=== PATIENT | male | born 1950 | race African-American/Black ===

== ENCOUNTER 2018-11-11 12:37 | Inpatient (IN) | payer OTHER ==
[~2018-11-11] VITALS: Ht 185.4 cm; Wt 106.8 kg
[~2018-11-11 12:37] MED LIST: ALLO100T PO; AMLO10TA8 PO; ASPI-630 PO; ATOR40TA59 PO; CHOL10003 PO; CLON0.3T PO; CLOP75TA PO; FURO20TA3 PO; HYDR-2869 PO; INSU100I17 SQ; INSU100V13 SQ; LISI-130 PO; LORA10TA3 PO; MELO15TA23 PO; METO25TA4 PO; ROPI0.5T2 PO; TAMS0.4C97 PO
[2018-11-11] MEDS ORDERED: ASPIRIN CHEWABLE 81 MG TABLET. PO ONE (13:00)
[2018-11-11] MEDS ORDERED: NITROGLYCERIN SUBLINGUAL 0.4 MG BOTTLE OF 25. SL PRN (13:00)
--- NOTE | 2018-11-11 13:07 | PHYS DOC ---
Past Medical History Past Medical History: Diabetes-Type II, High Cholesterol, Hypertension, [place] Past Surgical History: Coronary Bypass Surgery Alcohol Use: None Drug Use: None Adult General Chief Complaint Chief Complaint: CHEST PAIN HPI HPI Patient is a 68 year old male who presents with complaining of chest pain. Patient complaining of sudden onset of left-sided burning pain since 7 AM while changing his clothes as a constant pain with radiation to left upper back and associated with shortness of breath and dizziness without vomiting and palpitation. Patient rated his pain 8/10 and states the pain getting worse with movement. Patient states he had same pain with his previous stent placement. Review of Systems Review of Systems Constitutional: Denies fever or chills [] Eyes: Denies change in visual acuity, redness, or eye pain [] HENT: Denies nasal congestion or sore throat [] Respiratory: Denies cough or shortness of breath [] Cardiovascular: No additional information not addressed in HPI [] GI: Denies abdominal pain, nausea, vomiting, bloody stools or diarrhea [] : Denies dysuria or hematuria [] Musculoskeletal: Denies back pain or joint pain [] Integument: Denies rash or skin lesions [] Neurologic: Denies headache, focal weakness or sensory changes [] Endocrine: Denies polyuria or polydipsia [] All other systems were reviewed and found to be within normal limits, except as documented in this note. Current Medications Current Medications Allergies Allergies Allergies Coded Allergies Type Severity Reaction Last Updated Verified No Known Drug Allergies 09/20/18 No Physical Exam Physical Exam Constitutional: Well developed, well nourished, no acute distress, non-toxic appearance. [] HENT: Normocephalic, atraumatic, bilateral external ears normal, oropharynx moist, no oral exudates, nose normal. [] Eyes: PERRLA, EOMI, conjunctiva normal, no discharge. [] Neck: Normal range of motion, no tenderness, supple, no stridor. [] Cardiovascular:Heart rate regular rhythm, no murmur [] Lungs & Thorax: Bilateral breath sounds clear to auscultation [] Abdomen: Bowel sounds normal, soft, no tenderness, no masses, no pulsatile masses. [] Skin: Warm, dry, no erythema, no rash. [] Back: No tenderness, no CVA tenderness. [] Extremities: No tenderness, no cyanosis, no clubbing, ROM intact, no edema. [] Neurologic: Alert and oriented X 3, normal motor function, normal sensory function, no focal deficits noted. [] Psychologic: Affect normal, judgement normal, mood normal. [] Current Patient Data Vital Signs Vital Signs Date Time Temp Pulse Resp B/P (MAP) Pulse Ox O2 Delivery O2 Flow Rate FiO2 11/11/18 12:51 97.8 60 17 159/87 (111) 97 Room Air 97.8 EKG EKG EKG interpreted by me. EKG at 1245 showed [id number],PVCs,no acute ST and T wave abnormalities. Radiology/Procedures Radiology/Procedures [][facility] [address] [place] [address] IMAGING REPORT Signed PATIENT: FALLON MORA ACCOUNT: [id number] : 1950 LOCATION: [address] [place] [address] AGE: 68 SEX: M EXAM STATUS: ADM IN ORD. PHYSICIAN: KALYAN HUANG MD REASON: chest pain PROCEDURE: PORTABLE CHEST 1V PORTABLE CHEST 1V Clinical indications: Chest pain. COMPARISON: September 20, 2018. Findings: No acute lung infiltrate or pleural effusion or pulmonary edema or lung mass or pneumothorax is seen. The heart size, pulmonary vasculature, mediastinum and both enedelia are stable. Impression: No acute radiographic abnormality is seen. Electronically signed by: Matias Guerin MD (11/11/2018 1:41 PM) [facility] DICTATED and SIGNED BY: MATIAS GUERIN MD DATE: 11/11/18 1341 Course & Med Decision Making Course & Med Decision Making Pertinent Labs and Imaging studies reviewed. (See chart for details) Evaluation of patient in ER showed 68-year-old male patient with complaining of chest pain with heart score of 6. Patient had unremarkable cardiac enzymes. Patient requiring admission for further evaluation and treatment. Discussed with Dr. Mancuso who is in agreement with admission. Discussed findings and plan with patient and family, who acknowledge understanding and agreement. Dragon Disclaimer Dragon Disclaimer This electronic medical record was generated, in whole or in part, using a voice recognition dictation system. Departure Departure Impression: Primary Impression: Acute chest pain Additional Impressions: Anemia Hypomagnesemia Disposition: 09 ADMITTED INPATIENT (at 1256) Admitting Physician: AMBROSIO (Dr. Mancuso accepted admission at 1255) Condition: IMPROVED Referrals: UNKNOWN PCP NAME (PCP) The HEART Score for CP Pts HEART Score for Chest Pain: HEART Score for Chest Pain Response (Comments) Value History Moderately Suspicious 1 ECG Nonspecific Repolarizatio 1 Age > 65 2 Risk Factors >3 Risk Factors or Hx CAD 2 Troponin < Normal Limit 0 Total 6 Risk Factors: Risk Factors: DM, Current or recent (<one month) smoker, HTN, HLP, family history of CAD, obesity. Risk Scores: Score 0 - 3: 2.5% MACE over next 6 weeks - Discharge Home Score 4 - 6: 20.3% MACE over next 6 weeks - Admit for Clinical Observation Score 7 - 10: 72.7% MACE over next 6 weeks - Early Invasive Strategies Problem Qualifiers Additional Impressions: Anemia Anemia type: unspecified type Qualified Codes: D64.9 - Anemia, unspecified KALYAN HUANG MD Nov 11, 2018 13:07
[2018-11-11 13:16] LABS: BASO % 0 % (0-3); EOS # 0.1 x10^3/uL (0.0-0.7); EOS % 1 % (0-3); HEMATOCRIT 37.1 % (39.0-53.0); HEMOGLOBIN 12.1 g/dL (13.0-17.5); LYMPH # 1.9 x10^3/uL (1.0-4.8); LYMPH % 23 % (24-48); MEAN CORPUSCULAR HEMOGLOBIN 26 pg (25-35); MEAN CORPUSCULAR HGB CONC 33 g/dL (31-37); MEAN CORPUSCULAR VOLUME 78 fL (79-100); MONO # 0.6 x10^3/uL (0.0-1.1); MONO % 8 % (0-9); NEUT # 5.9 x10^3/uL (1.8-7.7); NEUT % 69 % (31-73); PLATELET COUNT 186 x10^3/uL (140-400); RED BLOOD COUNT 4.73 x10^6/uL (4.30-5.70); RED CELL DISTRIBUTION WIDTH 16.4 % (11.5-14.5); WHITE BLOOD COUNT 8.6 x10^3/uL (4.0-11.0)
[2018-11-11 13:23] LABS: PROTHROMBIN TIME PATIENT 13.8 SEC (11.7-14.0)
[2018-11-11 13:31] LABS: CALCIUM 9.4 mg/dL (8.5-10.1); CREATININE 1.2 mg/dL (0.7-1.3); GFR 72.4
[2018-11-11 13:37] LABS: ALBUMIN 3.5 g/dL (3.4-5.0); ALBUMIN/GLOBULIN RATIO 0.9 (1.0-1.7); MAGNESIUM 1.7 mg/dL (1.8-2.4); TOTAL BILIRUBIN 0.7 mg/dL (0.2-1.0); TOTAL PROTEIN 7.3 g/dL (6.4-8.2)
--- NOTE | 2018-11-11 13:43 | RAD ---
PORTABLE CHEST 1V Clinical indications: Chest pain. COMPARISON: September 20, 2018. Findings: No acute lung infiltrate or pleural effusion or pulmonary edema or lung mass or pneumothorax is seen. The heart size, pulmonary vasculature, mediastinum and both enedelia are stable. Impression: No acute radiographic abnormality is seen. Electronically signed by: Brent Guerin MD (11/11/2018 1:41 PM) [facility]
--- NOTE | 2018-11-11 13:44 | EKG ---
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
[2018-11-11 14:30] VITALS: BP 115/58
[2018-11-11] MEDS ORDERED: ONDANSETRON PF 4 MG/2 ML VIAL. IV ONE (14:30)
[2018-11-11] MEDS ORDERED: MORPHINE SULFATE 4 MG/ML VIAL. IV ONE (14:30)
[2018-11-11] MEDS ORDERED: INSU100V13 SQ ×2 (15:49→15:51)
[2018-11-11] MEDS ORDERED: INSU100C4 SQ (15:49)
--- NOTE | 2018-11-11 15:49 | PDOC2 ---
CONSULT Date of Consult Date of Consult DATE: 11/11/18 TIME: 15:44 Reason for Consult Reason for Consult: chest pain Referring Physician Referring Physician: Dr. Mancuso Identification/Chief Complaint Chief Complaint chest pain Source Source: Chart review, Patient History of Present Illness Reason for Visit: The patient is a 68-year-old male who presented through the emergency room for episodes of chest pain. Patient states this pain started last night and continued throughout the night. In the emergency room the patient's EKG showed no evidence of ischemia. His initial troponin was normal. He is now resting more comfortably in bed. He reports a history of coronary disease, hypertension, hyperlipidemia and diabetes. He was admitted in August for abdominal discomfort and had gastritis and acute renal insufficiency. Creatinine was 1.9. Also he had a positive UDS for cocaine. Past Medical History Cardiovascular: CAD, HTN, Hyperlipidemia GI: Constipation Musculoskeletal: low back pain Renal/: No pertinent hx, Chronic renal failure Endocrine: Diabetes Past Surgical History Past Surgical History: No pertinent history Family History Family History: Heart Disease Social History <1 pack per day Drugs: Cocaine, Other Lives: with Family Current Problem List Problem List Problems Medical Problems: (1) Acute chest pain Status: Acute Current Medications Current Medications Current Medications Aspirin (Children'S Aspirin) 243 mg 1X ONCE PO Last administered on 11/11/18at 13:49; Start 11/11/18 at 13:00; Stop 11/11/18 at 13:01; Status DC Nitroglycerin (Nitrostat) 0.4 mg PRN Q5MIN PRN SL CP RATING > 1/10 Last administered on 11/11/18at 13:49; Start 11/11/18 at 13:00; Stop 11/12/18 at 12:59 Magnesium Oxide (Magnesium Oxide) 400 mg DAILY PO ; Start 11/12/18 at 09:00 Ondansetron HCl (Zofran) 4 mg 1X ONCE IV ; Start 11/11/18 at 14:30; Stop 11/11/18 at 14:31; Status DC Morphine Sulfate (Morphine Sulfate) 4 mg 1X ONCE IV ; Start 11/11/18 at 14:30; Stop 11/11/18 at 14:31; Status DC Active Scripts Active Reported Ropinirole Hcl 0.5 Mg Tablet 0.5 Mg PO HS Levemir (Insulin Detemir) 100 Unit/1 Ml Vial 55 Unit SQ HS Novolog Flexpen (Insulin Aspart) 100 Unit/1 Ml Insuln.pen 35 Unit SQ TIDWMEALS Flomax (Tamsulosin Hcl) 0.4 Mg Cap.er.24h 0.4 Mg PO HS Metoprolol Tartrate 25 Mg Tablet 25 Mg PO HS Meloxicam 15 Mg Tablet 1 Tab PO PRN DAILY PRN Loratadine 10 Mg Tablet 1 Tab PO PRN DAILY PRN Lisinopril 40 Mg Tablet 1 Tab PO DAILY Hydralazine Hcl 50 Mg Tablet 50 Mg PO QID Furosemide 20 Mg Tablet 20 Mg PO DAILY Clopidogrel (Clopidogrel Bisulfate) 75 Mg Tablet 1 Tab PO DAILY Vitamin D3 (Cholecalciferol (Vitamin D3)) 1,000 Unit Tablet 1 Tab PO DAILY Clonidine Hcl 0.3 Mg Tablet 2 Tab PO BID Atorvastatin Calcium 40 Mg Tablet 1 Tab PO QHS Aspirin 81 Mg Tab.chew 1 Tab PO DAILY Allopurinol 100 Mg Tablet 1 Tab PO DAILY Amlodipine Besylate 10 Mg Tablet 10 Mg PO DAILY Allergies Allergies: Coded Allergies: No Known Drug Allergies (Unverified , 09/20/18) ROS General: YES: Fatigue Cardiovascular: yes Chest Pain Physical Exam General: mild distress HEENT: Atraumatic Lungs: Other (minimally decreased breath sounds) Heart: Regular rate Abdomen: Normal bowel sounds Vitals VITALS Vital Signs Date Time Temp Pulse Resp B/P (MAP) Pulse Ox O2 Delivery O2 Flow Rate FiO2 11/11/18 14:14 54 125/56 (79) 97 Room Air 11/11/18 12:51 97.8 17 97.8 Labs Labs Laboratory Tests Test 11/11/18 13:05 White Blood Count 8.6 x10^3/uL (4.0-11.0) Red Blood Count 4.73 x10^6/uL (4.30-5.70) Hemoglobin 12.1 g/dL (13.0-17.5) Hematocrit 37.1 % (39.0-53.0) Mean Corpuscular Volume 78 fL (79-100) Mean Corpuscular Hemoglobin 26 pg (25-35) Mean Corpuscular Hemoglobin Concent 33 g/dL (31-37) Red Cell Distribution Width 16.4 % (11.5-14.5) Platelet Count 186 x10^3/uL (140-400) Neutrophils (%) (Auto) 69 % (31-73) Lymphocytes (%) (Auto) 23 % (24-48) Monocytes (%) (Auto) 8 % (0-9) Eosinophils (%) (Auto) 1 % (0-3) Basophils (%) (Auto) 0 % (0-3) Neutrophils # (Auto) 5.9 x10^3/uL (1.8-7.7) Lymphocytes # (Auto) 1.9 x10^3/uL (1.0-4.8) Monocytes # (Auto) 0.6 x10^3/uL (0.0-1.1) Eosinophils # (Auto) 0.1 x10^3/uL (0.0-0.7) Basophils # (Auto) 0.0 x10^3/uL (0.0-0.2) Prothrombin Time 13.8 SEC (11.7-14.0) Prothromb Time International Ratio 1.1 (0.8-1.1) Sodium Level 142 mmol/L (136-145) Potassium Level 4.0 mmol/L (3.5-5.1) Chloride Level 105 mmol/L (98-107) Carbon Dioxide Level 28 mmol/L (21-32) Anion Gap 9 (6-14) Blood Urea Nitrogen 18 mg/dL (8-26) Creatinine 1.2 mg/dL (0.7-1.3) Estimated GFR (Cockcroft-Gault) 72.4 BUN/Creatinine Ratio 15 (6-20) Glucose Level 131 mg/dL (70-99) Lactic Acid Level 0.8 mmol/L (0.4-2.0) Calcium Level 9.4 mg/dL (8.5-10.1) Magnesium Level 1.7 mg/dL (1.8-2.4) Total Bilirubin 0.7 mg/dL (0.2-1.0) Aspartate Amino Transf (AST/SGOT) 13 U/L (15-37) Alanine Aminotransferase (ALT/SGPT) 15 U/L (16-63) Alkaline Phosphatase 121 U/L (46-116) Creatine Kinase 87 U/L (39-308) Troponin I Quantitative < 0.017 ng/mL (0.000-0.055) NE-Rqn-W-Type Natriuretic Peptide 457 pg/mL (0-124) Total Protein 7.3 g/dL (6.4-8.2) Albumin 3.5 g/dL (3.4-5.0) Albumin/Globulin Ratio 0.9 (1.0-1.7) Lipase 105 U/L (73-393) Laboratory Tests Test 11/11/18 13:05 White Blood Count 8.6 x10^3/uL (4.0-11.0) Red Blood Count 4.73 x10^6/uL (4.30-5.70) Hemoglobin 12.1 g/dL (13.0-17.5) Hematocrit 37.1 % (39.0-53.0) Mean Corpuscular Volume 78 fL (79-100) Mean Corpuscular Hemoglobin 26 pg (25-35) Mean Corpuscular Hemoglobin Concent 33 g/dL (31-37) Red Cell Distribution Width 16.4 % (11.5-14.5) Platelet Count 186 x10^3/uL (140-400) Neutrophils (%) (Auto) 69 % (31-73) Lymphocytes (%) (Auto) 23 % (24-48) Monocytes (%) (Auto) 8 % (0-9) Eosinophils (%) (Auto) 1 % (0-3) Basophils (%) (Auto) 0 % (0-3) Neutrophils # (Auto) 5.9 x10^3/uL (1.8-7.7) Lymphocytes # (Auto) 1.9 x10^3/uL (1.0-4.8) Monocytes # (Auto) 0.6 x10^3/uL (0.0-1.1) Eosinophils # (Auto) 0.1 x10^3/uL (0.0-0.7) Basophils # (Auto) 0.0 x10^3/uL (0.0-0.2) Prothrombin Time 13.8 SEC (11.7-14.0) Prothromb Time International Ratio 1.1 (0.8-1.1) Sodium Level 142 mmol/L (136-145) Potassium Level 4.0 mmol/L (3.5-5.1) Chloride Level 105 mmol/L (98-107) Carbon Dioxide Level 28 mmol/L (21-32) Anion Gap 9 (6-14) Blood Urea Nitrogen 18 mg/dL (8-26) Creatinine 1.2 mg/dL (0.7-1.3) Estimated GFR (Cockcroft-Gault) 72.4 BUN/Creatinine Ratio 15 (6-20) Glucose Level 131 mg/dL (70-99) Lactic Acid Level 0.8 mmol/L (0.4-2.0) Calcium Level 9.4 mg/dL (8.5-10.1) Magnesium Level 1.7 mg/dL (1.8-2.4) Total Bilirubin 0.7 mg/dL (0.2-1.0) Aspartate Amino Transf (AST/SGOT) 13 U/L (15-37) Alanine Aminotransferase (ALT/SGPT) 15 U/L (16-63) Alkaline Phosphatase 121 U/L (46-116) Creatine Kinase 87 U/L (39-308) Troponin I Quantitative < 0.017 ng/mL (0.000-0.055) AS-Ujk-Z-Type Natriuretic Peptide 457 pg/mL (0-124) Total Protein 7.3 g/dL (6.4-8.2) Albumin 3.5 g/dL (3.4-5.0) Albumin/Globulin Ratio 0.9 (1.0-1.7) Lipase 105 U/L (73-393) Images Images Chest x-ray shows no acute process. Assessment/Plan Assessment/Plan 1. Chest pain. Pain has significantly improved. EKG shows no acute ischemic changes. Initial troponin is negative. Patient reports a history of coronary disease. At this time would continue present medications and monitoring. Would rule out for myocardial infarction. Based on clinical course the patient may be a candidate for outpatient stress testing. 2. Hypertension. Blood pressure under reasonable control. Will continue to monitor. 3. Hyperlipidemia. We'll check morning lab. 4. Diabetes mellitus. As per the primary service. 5. History of positive UDS for cocaine in August of this year. 6. Chronic kidney disease. Will monitor creatinine. Thank you for allowing us to participate in the care of your patient. RENALDO MADRID MD Nov 11, 2018 15:49
[2018-11-11] MEDS ORDERED: MAGNESIUM SULFATE 2GM 50 ML IV ONE (17:00)
[2018-11-11] MEDS: INSULIN LISPRO 300 UNITS/3 ML VIAL. SQ SCH (17:38)
[2018-11-11 19:00] VITALS: BP 141/66
--- NOTE | 2018-11-11 19:57 | HP ---
ADMIT DATE: 11/11/2018 CHIEF COMPLAINT: Chest pain. HISTORY OF PRESENT ILLNESS: The patient is a pleasant 68-year-old male who has 7 coronary stents and he has had bypass surgery. Once again, he presents to the ER with chest pain. His troponin is slightly high at 0.02. He has associated weakness. It has been occurring for a couple of days. I discussed the case with the ER physician. We are going to admit the patient and consult Cardiology. PAST MEDICAL HISTORY: Coronary artery bypass surgery, 7 cardiac stents, diabetes, hypertension, hyperlipidemia, myocardial infarction. ALLERGIES: None. FAMILY HISTORY: Coronary artery disease. SOCIAL HISTORY: Does not drink, smoke or take drugs. 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 MEDICATIONS: Reviewed, please refer to the MRAD. REVIEW OF SYSTEMS: GENERAL: No history of weight change, weakness or fevers. SKIN: No bruising, hair changes or rashes. EYES: No blurred, double or loss of vision. NOSE AND THROAT: No history of nosebleeds, hoarseness or sore throat. HEART: He complains of chest pain. LUNGS: Denies cough, hemoptysis, wheezing or shortness of breath. GASTROINTESTINAL: Denies changes in appetite, nausea, vomiting, diarrhea or constipation. GENITOURINARY: No history of frequency, urgency, hesitancy or nocturia. NEUROLOGIC: Denies history of numbness, tingling, tremor or weakness. PSYCHIATRIC: No history of panic, anxiety or depression. ENDOCRINE: No history of heat or cold intolerance, polyuria or polydipsia. EXTREMITIES: Denies muscle weakness, joint pain, pain on walking or stiffness. PHYSICAL EXAMINATION: VITALS: Within normal limits and are stable. GENERAL: No apparent distress. Alert and oriented. HEENT: Head is normocephalic, atraumatic, pupils were equally round and reactive to light and accommodation. NECK: Supple, no JVD, no thyromegaly was noted. LUNGS: Clear to auscultation in all lung noble without rhonchi or wheezing. HEART: RRR, S1, S2 present. Peripheral pulses intact, no obvious murmurs were noted. ABDOMEN: Soft, nontender. Positive bowel sounds no organomegaly, normal bowel sounds. EXTREMITIES: Without any cyanosis, clubbing, or edema. Pedal pulses intact, Homans sign is negative. NEUROLOGIC: Normal speech, normal tone. A & O x3, moves all extremities, no obvious focal deficits. PSYCHIATRIC: Normal affect, normal mood. Stable. SKIN: No ulcerations or rashes, good skin turgor, no jaundice. VASCULAR: Good capillary refill, neurovascular bundle appears to be intact. LABORATORY DATA: Troponin is 0.0227. ASSESSMENT AND PLAN: Chest pain with known coronary artery disease. The patient has been admitted. We will check serial enzymes, serial EKGs, cardiac monitoring, echocardiogram, consult Cardiology. DVT prophylaxis. Home meds, p.r.n. nitro, daily aspirin. CRIS HIGGINBOTHAM DO DR: REBEKAH/ami JOB#: [id number] / [id number]
[2018-11-11] MEDS: GABAPENTIN 300 MG CAPSULE. PO SCH (20:50)
[2018-11-11] MEDS: cloNIDine HCL 0.3 MG TABLET PO SCH (20:51)
[2018-11-11] MEDS ORDERED: METOPROLOL TART IMMED RELEASE 25 MG TABLET. PO SCH (21:00)
[2018-11-11] MEDS ORDERED: INSULIN GLARGINE SYRINGE. SQ SCH (21:00)
[2018-11-11] MEDS ORDERED: rOPINIRole 0.25 MG TABLET. PO SCH (21:00)
[2018-11-11] MEDS ORDERED: TAMSULOSIN 0.4 MG CAP.ER.24H. PO SCH (21:00)
[2018-11-11] MEDS ORDERED: ATORVASTATIN CALCIUM 40 MG TABLET. PO SCH (21:00)
[2018-11-11] MEDS ORDERED: ZOLPIDEM 5 MG TABLET. PO PRN (22:00)
[2018-11-11 23:00] VITALS: BP 130/68
[2018-11-12] MEDS ORDERED: GABAPENTIN 300 MG CAPSULE. PO SCH
[2018-11-12 03:00] VITALS: BP 131/71
[2018-11-12 04:35] LABS: ALBUMIN 3.1 g/dL (3.4-5.0); CALCIUM 9.1 mg/dL (8.5-10.1); CREATININE 1.3 mg/dL (0.7-1.3); DIRECT BILIRUBIN 0.1 mg/dL (0.0-0.2); MAGNESIUM 2.1 mg/dL (1.8-2.4); POTASSIUM 3.6 mmol/L (3.5-5.1); TOTAL BILIRUBIN 0.4 mg/dL (0.2-1.0); TOTAL PROTEIN 7.1 g/dL (6.4-8.2)
[2018-11-12 04:36] LABS: CHOLESTEROL/HDL RATIO 2.8
[2018-11-12 07:00] VITALS: BP 150/75
[2018-11-12] MEDS: GABAPENTIN 300 MG CAPSULE. PO SCH ×2 (07:30→13:07)
[2018-11-12] MEDS: INSULIN LISPRO 300 UNITS/3 ML VIAL. SQ SCH ×2 (08:00→13:13)
[2018-11-12] MEDS ORDERED: amLODIPine BESYLATE 10 MG TABLET PO SCH (09:00)
[2018-11-12] MEDS ORDERED: LISINOPRIL 20 MG TABLET PO SCH (09:00)
[2018-11-12] MEDS ORDERED: FUROSEMIDE 20 MG TABLET PO SCH (09:00)
[2018-11-12] MEDS ORDERED: CLOPIDOGREL BISULFATE 75 MG TABLET PO SCH (09:00)
[2018-11-12] MEDS ORDERED: ASPIRIN CHEWABLE 81 MG TABLET. PO SCH (09:00)
[2018-11-12] MEDS ORDERED: ALLOPURINOL 100 MG TABLET. PO SCH (09:00)
[2018-11-12] MEDS ORDERED: MAGNESIUM OXIDE 400 MG TABLET PO SCH (09:00)
[2018-11-12] MEDS ORDERED: CETIRIZINE HCL 10 MG TABLET. PO PRN (09:00)
[2018-11-12] MEDS ORDERED: MELOXICAM 7.5 MG TABLET PO PRN (09:00)
[2018-11-12] MEDS ORDERED: CHOLECALCIFEROL (VITAMIN D3) 1,000 UNIT TABLET PO SCH (09:00)
[2018-11-12] MEDS: cloNIDine HCL 0.3 MG TABLET PO SCH (09:03)
[2018-11-12 11:00] VITALS: BP 143/83
--- NOTE | 2018-11-12 11:30 | PDOC ---
[employer] PROGRESS NOTE Chief Complaint Chief Complaint Acute Chest Pain Hx of CABG and 7 cardiac stents Diabetes Hypertension Hyperlipidemia Myocardial infarction History of Present Illness History of Present Illness 11/12/18 Pt seen/examined at bedside and resting NAD Chart Reviewed MIRTA RN Vitals/I&O Vitals/I&O: Vital Signs Date Time Temp Pulse Resp B/P (MAP) Pulse Ox O2 Delivery O2 Flow Rate FiO2 11/12/18 09:04 56 150/75 11/12/18 08:00 Room Air 11/12/18 07:00 98.4 18 97 98.4 I & O 11/11/18 11/11/18 11/12/18 14:59 22:59 06:59 Intake Total 400 ml 0 ml Output Total 620 ml 375 ml Balance -220 ml -375 ml Physical Exam General: Alert, mild distress Heart: Regular rate, Normal S1, Normal S2 Lungs: Clear Abdomen: Normal bowel sounds Extremities: No clubbing, No cyanosis Skin: No rashes, No breakdown, No significant lesion Labs Labs: Laboratory Tests Test 11/11/18 13:05 11/11/18 17:17 11/11/18 18:50 11/11/18 20:38 White Blood Count 8.6 x10^3/uL (4.0-11.0) Red Blood Count 4.73 x10^6/uL (4.30-5.70) Hemoglobin 12.1 g/dL (13.0-17.5) Hematocrit 37.1 % (39.0-53.0) Mean Corpuscular Volume 78 fL (79-100) Mean Corpuscular Hemoglobin 26 pg (25-35) Mean Corpuscular Hemoglobin Concent 33 g/dL (31-37) Red Cell Distribution Width 16.4 % (11.5-14.5) Platelet Count 186 x10^3/uL (140-400) Neutrophils (%) (Auto) 69 % (31-73) Lymphocytes (%) (Auto) 23 % (24-48) Monocytes (%) (Auto) 8 % (0-9) Eosinophils (%) (Auto) 1 % (0-3) Basophils (%) (Auto) 0 % (0-3) Neutrophils # (Auto) 5.9 x10^3/uL (1.8-7.7) Lymphocytes # (Auto) 1.9 x10^3/uL (1.0-4.8) Monocytes # (Auto) 0.6 x10^3/uL (0.0-1.1) Eosinophils # (Auto) 0.1 x10^3/uL (0.0-0.7) Basophils # (Auto) 0.0 x10^3/uL (0.0-0.2) Prothrombin Time 13.8 SEC (11.7-14.0) Prothromb Time International Ratio 1.1 (0.8-1.1) Sodium Level 142 mmol/L (136-145) Potassium Level 4.0 mmol/L (3.5-5.1) Chloride Level 105 mmol/L (98-107) Carbon Dioxide Level 28 mmol/L (21-32) Anion Gap 9 (6-14) Blood Urea Nitrogen 18 mg/dL (8-26) Creatinine 1.2 mg/dL (0.7-1.3) Estimated GFR (Cockcroft-Gault) 72.4 BUN/Creatinine Ratio 15 (6-20) Glucose Level 131 mg/dL (70-99) Lactic Acid Level 0.8 mmol/L (0.4-2.0) Calcium Level 9.4 mg/dL (8.5-10.1) Magnesium Level 1.7 mg/dL (1.8-2.4) Total Bilirubin 0.7 mg/dL (0.2-1.0) Aspartate Amino Transf (AST/SGOT) 13 U/L (15-37) Alanine Aminotransferase (ALT/SGPT) 15 U/L (16-63) Alkaline Phosphatase 121 U/L (46-116) Creatine Kinase 87 U/L (39-308) Troponin I Quantitative < 0.017 ng/mL (0.000-0.055) < 0.017 ng/mL (0.000-0.055) FE-Pbj-H-Type Natriuretic Peptide 457 pg/mL (0-124) Total Protein 7.3 g/dL (6.4-8.2) Albumin 3.5 g/dL (3.4-5.0) Albumin/Globulin Ratio 0.9 (1.0-1.7) Lipase 105 U/L (73-393) Glucose (Fingerstick) 187 mg/dL (70-99) 147 mg/dL (70-99) Test 11/12/18 00:40 11/12/18 04:00 11/12/18 07:22 Troponin I Quantitative < 0.017 ng/mL (0.000-0.055) < 0.017 ng/mL (0.000-0.055) Sodium Level 140 mmol/L (136-145) Potassium Level 3.6 mmol/L (3.5-5.1) Chloride Level 103 mmol/L (98-107) Carbon Dioxide Level 30 mmol/L (21-32) Anion Gap 7 (6-14) Blood Urea Nitrogen 20 mg/dL (8-26) Creatinine 1.3 mg/dL (0.7-1.3) Estimated GFR (Cockcroft-Gault) 66.0 Glucose Level 94 mg/dL (70-99) Calcium Level 9.1 mg/dL (8.5-10.1) Magnesium Level 2.1 mg/dL (1.8-2.4) Total Bilirubin 0.4 mg/dL (0.2-1.0) Direct Bilirubin 0.1 mg/dL (0.0-0.2) Aspartate Amino Transf (AST/SGOT) 12 U/L (15-37) Alanine Aminotransferase (ALT/SGPT) 12 U/L (16-63) Alkaline Phosphatase 113 U/L (46-116) Total Protein 7.1 g/dL (6.4-8.2) Albumin 3.1 g/dL (3.4-5.0) Triglycerides Level 56 mg/dL (0-150) Cholesterol Level 95 mg/dL (0-200) LDL Cholesterol, Calculated 50 mg/dL (0-100) VLDL Cholesterol, Calculated 11 mg/dL (0-40) Non-HDL Cholesterol Calculated 61 mg/dL (0-129) HDL Cholesterol 34 mg/dL (40-60) Cholesterol/HDL Ratio 2.8 Glucose (Fingerstick) 95 mg/dL (70-99) Review of Systems Review of Systems: co chest pain co weakness Assessment and Plan Assessmemt and Plan Problems Medical Problems: (1) Acute chest pain Status: Acute (2) Anemia Status: Acute (3) Hypomagnesemia Status: Acute Assessment: Acute Chest Pain Hx of CABG and 7 cardiac stents Diabetes Hypertension Hyperlipidemia Myocardial infarction Plan: Cardiac monitoring Serial enzymes Serial EKG DVT prophylaxis Full Code PT/OT Home Meds Appreciate cardiology input Probably discharge today Comment Review of Relevant I have reviewed the following items galo (where applicable) has been applied. Medications: Current Medications Medications (Trade) Dose Ordered Sig/Laurie Route PRN Reason Start Time Stop Time Status Last Admin Dose Admin Aspirin (Children'S Aspirin) 243 mg 1X ONCE PO 11/11/18 13:00 11/11/18 13:01 DC 11/11/18 13:49 Nitroglycerin (Nitrostat) 0.4 mg PRN Q5MIN PRN SL CP RATING > 1/10 11/11/18 13:00 11/12/18 12:59 11/11/18 13:49 Magnesium Oxide (Magnesium Oxide) 400 mg DAILY PO 11/12/18 09:00 11/12/18 09:04 Allopurinol (Zyloprim) 100 mg DAILY PO 11/12/18 09:00 11/12/18 09:04 Amlodipine Besylate (Norvasc) 10 mg DAILY PO 11/12/18 09:00 11/12/18 09:04 Aspirin (Children'S Aspirin) 81 mg DAILY PO 11/12/18 09:00 11/12/18 09:04 Atorvastatin Calcium (Lipitor) 40 mg QHS PO 11/11/18 21:00 11/11/18 20:59 Vitamin D (Vitamin D3) 1,000 unit DAILY PO 11/12/18 09:00 11/12/18 09:04 Clonidine HCl (Catapres) 0.6 mg BID PO 11/11/18 21:00 11/12/18 09:04 Clopidogrel Bisulfate (Plavix) 75 mg DAILY PO 11/12/18 09:00 11/12/18 09:04 Furosemide (Lasix) 20 mg DAILY PO 11/12/18 09:00 11/12/18 09:04 Hydralazine HCl (Apresoline) 50 mg QID PO 11/11/18 17:00 11/12/18 09:04 Lisinopril (Prinivil) 40 mg DAILY PO 11/12/18 09:00 11/12/18 09:04 Metoprolol Tartrate (Lopressor) 25 mg HS PO 11/11/18 21:00 11/11/18 20:59 Tamsulosin HCl (Flomax) 0.4 mg HS PO 11/11/18 21:00 11/11/18 20:59 Insulin Human Lispro (HumaLOG) 10 units TIDWMEALS SQ 11/11/18 17:00 11/11/18 17:38 Insulin Glargine (Lantus Syringe) 34 unit QHS SQ 11/11/18 21:00 11/12/18 05:07 DC 11/11/18 20:59 Meloxicam (Mobic) 15 mg PRN DAILY PRN PO INFLAMMATION 11/12/18 09:00 11/12/18 09:04 Ropinirole HCl (Requip) 0.5 mg QHS PO 11/11/18 21:00 11/11/18 20:59 Magnesium Sulfate 50 ml @ 25 mls/hr 1X ONCE IV 11/11/18 17:00 11/11/18 18:59 DC 11/11/18 17:38 Gabapentin (Neurontin) 300 mg QIDACHS PO 11/11/18 21:00 11/12/18 09:04 CRIS HIGGINOBTHAM III DO Nov 12, 2018 11:30
[2018-11-12] MEDS ORDERED: HYDROcodone/APAP 5/325MG 1 TAB TABLET PO PRN (11:45)
--- NOTE | 2018-11-12 11:58 | DS ---
DATE OF DISCHARGE: 11/12/2018 ADMISSION DIAGNOSIS: Chest pain with known coronary artery disease. DISCHARGE DIAGNOSIS: Atypical chest pain. CONSULTS: Cardiology. PROCEDURES: None. HOSPITAL COURSE: The patient is a pleasant middle-aged male, who presented with chest pain. He has known coronary artery disease and previous stents including 7 stents and bypass surgery. We admitted the patient, did serial enzymes, serial EKGs, did cardiac monitoring. Cardiology saw the patient. They feel the patient can go. I saw the patient this morning, he is doing great. We plan to discharge this afternoon. DISPOSITION: Home. ACTIVITY: As tolerated. DIET: Cardiac. MEDICATIONS: Please see the MRAD. TOTAL TIME: 34 minutes. CRIS HIGGINBOTHAM DO DR: REBEKAH/ami JOB#: [id number] / [id number]
--- NOTE | 2018-11-12 12:26 | PDOC ---
PROGRESS NOTES Subjective Subjective Patient continues to complain of very atypical sharp chest pain but stated that the severity is much better Objective Objective Vital Signs Date Time Temp Pulse Resp B/P (MAP) Pulse Ox O2 Delivery O2 Flow Rate FiO2 11/12/18 11:00 98.3 58 18 143/83 (103) 96 Room Air 98.3 Intake and Output 11/12/18 06:59 Intake Total 400 ml Output Total 995 ml Balance -595 ml Intake Oral 400 ml Output Urine Total 995 ml Physical Exam Abdomen: Normal bowel sounds Heart: Regular rate, Normal S1, Normal S2 Extremities: No clubbing, No cyanosis General: Alert, mild distress HEENT: Atraumatic Lungs: Other (minimally decreased breath sounds) MUSCULOSKELETAL: No joint tenderness, No deformity Skin: No rashes, No breakdown, No significant lesion Assessment Assessment 1. Chest pain. Pain has significantly improved. EKG shows no acute ischemic changes. Myocardial infarction has been ruled out. Plan for outpatient 2-D echo to assess LV function and Lexiscan nuclear stress test to rule out ischemia. 2. Hypertension. Controlled. 3. Hyperlipidemia. Statins 4. Diabetes mellitus. As per the primary service. 5. History of positive UDS for cocaine in August of this year. 6. Chronic kidney disease. Per IM Plan Plan of Care Problems Medical Problems: (1) Acute chest pain Status: Acute (2) Anemia Status: Acute (3) Hypomagnesemia Status: Acute Comment Review of Relevant I have reviewed the following items galo (where applicable) has been applied. Labs Laboratory Tests Test 11/11/18 13:05 11/11/18 17:17 11/11/18 18:50 11/11/18 20:38 White Blood Count 8.6 x10^3/uL (4.0-11.0) Red Blood Count 4.73 x10^6/uL (4.30-5.70) Hemoglobin 12.1 g/dL (13.0-17.5) Hematocrit 37.1 % (39.0-53.0) Mean Corpuscular Volume 78 fL (79-100) Mean Corpuscular Hemoglobin 26 pg (25-35) Mean Corpuscular Hemoglobin Concent 33 g/dL (31-37) Red Cell Distribution Width 16.4 % (11.5-14.5) Platelet Count 186 x10^3/uL (140-400) Neutrophils (%) (Auto) 69 % (31-73) Lymphocytes (%) (Auto) 23 % (24-48) Monocytes (%) (Auto) 8 % (0-9) Eosinophils (%) (Auto) 1 % (0-3) Basophils (%) (Auto) 0 % (0-3) Neutrophils # (Auto) 5.9 x10^3/uL (1.8-7.7) Lymphocytes # (Auto) 1.9 x10^3/uL (1.0-4.8) Monocytes # (Auto) 0.6 x10^3/uL (0.0-1.1) Eosinophils # (Auto) 0.1 x10^3/uL (0.0-0.7) Basophils # (Auto) 0.0 x10^3/uL (0.0-0.2) Prothrombin Time 13.8 SEC (11.7-14.0) Prothromb Time International Ratio 1.1 (0.8-1.1) Sodium Level 142 mmol/L (136-145) Potassium Level 4.0 mmol/L (3.5-5.1) Chloride Level 105 mmol/L (98-107) Carbon Dioxide Level 28 mmol/L (21-32) Anion Gap 9 (6-14) Blood Urea Nitrogen 18 mg/dL (8-26) Creatinine 1.2 mg/dL (0.7-1.3) Estimated GFR (Cockcroft-Gault) 72.4 BUN/Creatinine Ratio 15 (6-20) Glucose Level 131 mg/dL (70-99) Lactic Acid Level 0.8 mmol/L (0.4-2.0) Calcium Level 9.4 mg/dL (8.5-10.1) Magnesium Level 1.7 mg/dL (1.8-2.4) Total Bilirubin 0.7 mg/dL (0.2-1.0) Aspartate Amino Transf (AST/SGOT) 13 U/L (15-37) Alanine Aminotransferase (ALT/SGPT) 15 U/L (16-63) Alkaline Phosphatase 121 U/L (46-116) Creatine Kinase 87 U/L (39-308) Troponin I Quantitative < 0.017 ng/mL (0.000-0.055) < 0.017 ng/mL (0.000-0.055) SG-Qsy-C-Type Natriuretic Peptide 457 pg/mL (0-124) Total Protein 7.3 g/dL (6.4-8.2) Albumin 3.5 g/dL (3.4-5.0) Albumin/Globulin Ratio 0.9 (1.0-1.7) Lipase 105 U/L (73-393) Glucose (Fingerstick) 187 mg/dL (70-99) 147 mg/dL (70-99) Test 11/12/18 00:40 11/12/18 04:00 11/12/18 07:22 Troponin I Quantitative < 0.017 ng/mL (0.000-0.055) < 0.017 ng/mL (0.000-0.055) Sodium Level 140 mmol/L (136-145) Potassium Level 3.6 mmol/L (3.5-5.1) Chloride Level 103 mmol/L (98-107) Carbon Dioxide Level 30 mmol/L (21-32) Anion Gap 7 (6-14) Blood Urea Nitrogen 20 mg/dL (8-26) Creatinine 1.3 mg/dL (0.7-1.3) Estimated GFR (Cockcroft-Gault) 66.0 Glucose Level 94 mg/dL (70-99) Calcium Level 9.1 mg/dL (8.5-10.1) Magnesium Level 2.1 mg/dL (1.8-2.4) Total Bilirubin 0.4 mg/dL (0.2-1.0) Direct Bilirubin 0.1 mg/dL (0.0-0.2) Aspartate Amino Transf (AST/SGOT) 12 U/L (15-37) Alanine Aminotransferase (ALT/SGPT) 12 U/L (16-63) Alkaline Phosphatase 113 U/L (46-116) Total Protein 7.1 g/dL (6.4-8.2) Albumin 3.1 g/dL (3.4-5.0) Triglycerides Level 56 mg/dL (0-150) Cholesterol Level 95 mg/dL (0-200) LDL Cholesterol, Calculated 50 mg/dL (0-100) VLDL Cholesterol, Calculated 11 mg/dL (0-40) Non-HDL Cholesterol Calculated 61 mg/dL (0-129) HDL Cholesterol 34 mg/dL (40-60) Cholesterol/HDL Ratio 2.8 Glucose (Fingerstick) 95 mg/dL (70-99) Medications Current Medications Acetaminophen/ Hydrocodone Bitart (Lortab 5/325) 1 tab PRN Q4HRS PRN PO PAIN; Start 11/12/18 at 11:45 Allopurinol (Zyloprim) 100 mg DAILY PO Last administered on 11/12/18 09:04; Start 11/12/18 at 09:00 Amlodipine Besylate (Norvasc) 10 mg DAILY PO Last administered on 11/12/18 09:04; Start 11/12/18 at 09:00 Aspirin (Children'S Aspirin) 81 mg DAILY PO Last administered on 11/12/18 09:04; Start 11/12/18 at 09:00 Aspirin (Children'S Aspirin) 243 mg 1X ONCE PO Last administered on 11/11/18at 13:49; Start 11/11/18 at 13:00; Stop 11/11/18 at 13:01; Status DC Atorvastatin Calcium (Lipitor) 40 mg QHS PO Last administered on 11/11/18at 20:59; Start 11/11/18 at 21:00 Cetirizine HCl (ZyrTEC) 10 mg PRN DAILY PRN PO ALLERGIES; Start 11/12/18 at 09:00 Clonidine HCl (Catapres) 0.6 mg BID PO Last administered on 11/12/18at 09:04; Start 11/11/18 at 21:00 Clopidogrel Bisulfate (Plavix) 75 mg DAILY PO Last administered on 11/12/18at 09:04; Start 11/12/18 at 09:00 Furosemide (Lasix) 20 mg DAILY PO Last administered on 11/12/18at 09:04; Start 11/12/18 at 09:00 Gabapentin (Neurontin) 300 mg [id number] PO ; Start 11/12/18 at 00:00; Stop 11/11/18 at 20:10; Status DC Gabapentin (Neurontin) 300 mg QIDACHS PO Last administered on 11/12/18at 09:04; Start 11/11/18 at 21:00 Hydralazine HCl (Apresoline) 50 mg QID PO Last administered on 11/12/18at 09:04; Start 11/11/18 at 17:00 Insulin Glargine (Lantus Syringe) 34 unit QHS SQ Last administered on 11/11/18 20:59; Start 11/11/18 at 21:00; Stop 11/12/18 at 05:07; Status DC Insulin Glargine (Lantus Syringe) 34 unit QHS SQ ; Start 11/12/18 at 21:00 Insulin Human Lispro (HumaLOG) 10 units TIDWMEALS SQ Last administered on 11/11/18 17:38; Start 11/11/18 at 17:00 Lisinopril (Prinivil) 40 mg DAILY PO Last administered on 11/12/18 09:04; Start 11/12/18 at 09:00 Magnesium Oxide (Magnesium Oxide) 400 mg DAILY PO Last administered on 11/12/18 09:04; Start 11/12/18 at 09:00 Magnesium Sulfate 50 ml @ 25 mls/hr 1X ONCE IV Last administered on 11/11/18 17:38; Start 11/11/18 at 17:00; Stop 11/11/18 at 18:59; Status DC Meloxicam (Mobic) 15 mg PRN DAILY PRN PO INFLAMMATION Last administered on 11/12/18 09:04; Start 11/12/18 at 09:00 Metoprolol Tartrate (Lopressor) 25 mg HS PO Last administered on 11/11/18 20:59; Start 11/11/18 at 21:00 Morphine Sulfate (Morphine Sulfate) 4 mg 1X ONCE IV ; Start 11/11/18 at 14:30; Stop 11/11/18 at 14:31; Status DC Nitroglycerin (Nitrostat) 0.4 mg PRN Q5MIN PRN SL CP RATING > 1/10 Last administered on 11/11/18at 13:49; Start 11/11/18 at 13:00; Stop 11/12/18 at 12:59 Ondansetron HCl (Zofran) 4 mg 1X ONCE IV ; Start 11/11/18 at 14:30; Stop 11/11/18 at 14:31; Status DC Ropinirole HCl (Requip) 0.5 mg QHS PO Last administered on 11/11/18 20:59; Start 11/11/18 at 21:00 Tamsulosin HCl (Flomax) 0.4 mg HS PO Last administered on 9/13/19at 20:59; Start 11/11/18 at 21:00 Vitamin D (Vitamin D3) 1,000 unit DAILY PO Last administered on 11/12/18at 09:04; Start 11/12/18 at 09:00 Zolpidem Tartrate (Ambien) 5 mg PRN QHS PRN PO INSOMNIA; Start 11/11/18 at 22:00 Vitals/I & O Vital Sign - Last 24 Hours 11/11/18 11/11/18 11/11/18 11/11/18 12:48 12:51 13:14 13:44 Temp 97.8 97.8 Pulse 66 60 62 56 Resp 17 B/P (MAP) 159/87 (111) 159/87 (111) 136/68 (90) 132/62 (85) Pulse Ox 96 97 98 97 O2 Delivery Room Air Room Air 11/11/18 11/11/18 11/11/18 11/11/18 13:49 14:07 14:14 14:30 Temp 97.5 97.5 Pulse 57 52 54 56 Resp 20 B/P (MAP) 136/63 131/60 (83) 125/56 (79) 115/58 (77) Pulse Ox 97 97 99 O2 Delivery Room Air Room Air 11/11/18 11/11/18 11/11/18 11/11/18 15:29 17:38 19:00 19:40 Temp 97.9 97.9 Pulse 62 66 Resp 24 B/P (MAP) 115/58 141/66 (91) Pulse Ox 96 O2 Delivery Room Air Room Air Room Air 11/11/18 11/11/18 11/11/18 11/11/18 20:59 20:59 20:59 23:00 Temp 98.7 98.7 Pulse 68 66 66 63 Resp 20 B/P (MAP) 141/66 141/66 141/66 130/68 (88) Pulse Ox 96 O2 Delivery Room Air 11/12/18 11/12/18 11/12/18 11/12/18 03:00 07:00 08:00 09:04 Temp 98.4 98.4 98.4 98.4 Pulse 67 56 56 Resp 28 18 B/P (MAP) 131/71 (91) 150/75 (100) 150/75 Pulse Ox 92 97 O2 Delivery Room Air Room Air Room Air 11/12/18 11/12/18 11/12/18 11/12/18 09:04 09:04 09:04 11:00 Temp 98.3 98.3 Pulse 56 56 56 58 Resp 18 B/P (MAP) 150/75 150/75 150/75 143/83 (103) Pulse Ox 96 O2 Delivery Room Air Intake and Output 11/11/18 11/11/18 11/12/18 14:59 22:59 06:59 Intake Total 400 ml 0 ml Output Total 620 ml 375 ml Balance -220 ml -375 ml MONTY ZAMORA MD Nov 12, 2018 12:26
[2018-11-12 13:10] VITALS: BP 143/83
--- NOTE | 2018-11-12 13:57 | NUR ---
Discharge Note: MUNA MORA Discharge instructions and discharge home medications reviewed with Patient and a copy given. All questions have been answered and understanding verbalized.
[2018-11-12] MEDS ORDERED: INSULIN GLARGINE SYRINGE. SQ SCH (21:00)
== END 2018-11-12 13:58 | disposition home or self-care (01) | DRG 313 ==
LOC: ER 12:37 → 2 NORTH 12:56
PROVIDERS: ADMIT Internal Medicine; ATTEND Internal Medicine
DX: R07.89 Other chest pain (principal); I25.10 Atherosclerotic heart disease of native coronary artery without angina pectoris; E78.00 Pure hypercholesterolemia, unspecified; D64.9 Anemia, unspecified; E83.42 Hypomagnesemia; E78.5 Hyperlipidemia, unspecified; I12.9 Hypertensive chronic kidney disease with stage 1 through stage 4 chronic kidney disease, or unspecified chronic kidney disease; E11.22 Type 2 diabetes mellitus with diabetic chronic kidney disease; F17.210 Nicotine dependence, cigarettes, uncomplicated; N18.9 Chronic kidney disease, unspecified; Z82.49 Family history of ischemic heart disease and other diseases of the circulatory system; Z95.1 Presence of aortocoronary bypass graft; Z95.5 Presence of coronary angioplasty implant and graft; I25.2 Old myocardial infarction
CPT/HCPCS: 36415; 71045; 80048; 80053; 80061; 80076; 82550; 82962; 83605; 83690; 83735; 83880; 84484; 85025; 85610; 93005; J1815; J3475; G0378

== ENCOUNTER 2018-11-27 17:10 | Emergency (ER) | payer OTHER ==
[~2018-11-27] VITALS: Ht 185.4 cm; Wt 106.6 kg
[~2018-11-27 17:10] MED LIST changes: +INSU100C4 SQ
[2018-11-27 19:10] VITALS: BP 189/116
--- NOTE | 2018-11-27 19:37 | PHYS DOC ---
Past Medical History Past Medical History: Diabetes-Type II, High Cholesterol, Hypertension, OR Past Surgical History: Coronary Bypass Surgery Alcohol Use: None Drug Use: None Adult General Chief Complaint Chief Complaint: INSECT BITE HPI HPI Patient is a 68 year old AA male who presents to the ER with complaints of a tender area to his back between his shoulders for the last week that started to drain pus today. He currently rates his pain a 8/10 on the pain scale there are no alleviating factors, the pain increases with palpation. Review of Systems Review of Systems Constitutional: Denies fever or chills [] Musculoskeletal: Denies joint pain [] Integument: Denies rash; see HPI Neurologic: Denies headache, focal weakness or sensory changes [] Complete systems were reviewed and found to be within normal limits, except as documented in this note. Current Medications Current Medications Current Medications Medications (Trade) Dose Ordered Sig/Laurie Start Time Stop Time Status Last Admin Dose Admin Lidocaine/ Epinephrine (LIDOCAINE 1%-EPI 1:100,000 Multi-Dose) 20 ml 1X ONCE 11/27/18 19:45 11/27/18 19:46 DC 11/27/18 19:45 20 ML Allergies Allergies Allergies Coded Allergies Type Severity Reaction Last Updated Verified No Known Drug Allergies 09/20/18 No Physical Exam Physical Exam Constitutional: Well developed, well nourished, no acute distress, non-toxic appearance. [] HENT: Normocephalic, atraumatic, bilateral external ears normal, nose normal. [] Eyes: PERRLA, EOMI, conjunctiva normal, no discharge. [] Neck: Normal range of motion, no stridor. [] Lungs & Thorax: Respirations even and unlabored, no retractions, no respiratory distress Skin: Warm, dry; 4 cm diameter erythremic, tender, warm area between shoulder blades to upper back with several open areas draining brown pus, consistent with abscess and cellulitis. Back: No bony tenderness, no CVA tenderness. [] Extremities: No cyanosis, ROM intact, no edema. [] Neurologic: Alert and oriented X 3, no focal deficits noted. [] Psychologic: Affect normal, judgement normal, mood normal. [] Current Patient Data Vital Signs Vital Signs Date Time Temp Pulse Resp B/P (MAP) Pulse Ox O2 Delivery O2 Flow Rate FiO2 11/27/18 19:10 97.9 82 16 189/116 (140) 99 Room Air 97.9 EKG EKG [] Radiology/Procedures Radiology/Procedures [] Course & Med Decision Making Course & Med Decision Making Pertinent Labs and Imaging studies reviewed. (See chart for details) [] Dragon Disclaimer Dragon Disclaimer This electronic medical record was generated, in whole or in part, using a voice recognition dictation system. Departure Departure Impression: Primary Impression: Cutaneous abscess of back [any part, except buttock] Additional Impression: Cellulitis of back [any part except buttock] Disposition: 01 HOME, SELF-CARE Condition: STABLE Referrals: UNKNOWN PCP NAME (PCP) Patient Instructions: Abscess, Care After Additional Instructions: Fill the prescription(s) and use as directed. You may take tylenol or ibuprofen as needed for pain. Leave the Dressing that was placed in the ER in place for the next 24 hours, then change the dressing twice daily and apply antibiotic ointment as needed. Apply warm, moist packs to the area frequently to help decrease discomfort. Follow up with your primary care doctor in 1-2 days to wound rechecked. Return to the ER sooner if your symptoms worsen or you develop a fever. Scripts Hydrocodone Bit/Acetaminophen (HYDROCODONE-APAP 5-325 ) 1 Tab Tablet 1 TAB PO PRN Q6HRS PRN for PAIN for 3 Days, #12 TAB 0 Refills Prov: HERNAN GALARZA APRN 11/27/18 Doxycycline Hyclate (DOXYCYCLINE HYCLATE) 100 Mg Tablet 1 TAB PO BID, #14 TAB 0 Refills Prov: HERNAN GALARZA APRN 11/27/18 Problem Qualifiers HERNAN GALARZA APRN Nov 27, 2018 19:37
[2018-11-27] MEDS ORDERED: LIDOCAINE 1%/EPI 1:100,000 20 ML VIAL. SQ ONE (19:45)
[2018-11-27] MEDS ORDERED: HYDR-2761 PO (20:09)
[2018-11-27] MEDS ORDERED: DOXY100T PO (20:09)
== END 2018-11-27 20:35 | disposition home or self-care (01) ==
LOC: ER 17:10
DX: L02.212 Cutaneous abscess of back [any part, except buttock and flank] (principal); E11.9 Type 2 diabetes mellitus without complications; E78.00 Pure hypercholesterolemia, unspecified; I10 Essential (primary) hypertension; I25.2 Old myocardial infarction; Z95.1 Presence of aortocoronary bypass graft
CPT/HCPCS: 96372; 99283; J3490

== ENCOUNTER → 2018-12-14 | Outpatient (CLI) | payer OTHER ==
[2018-11-27 19:10] VITALS: BP 189/116
[~2018-12-14] MED LIST changes: +DOXY100T PO; +HYDR-2761 PO; +REGADENOSON 0.4 MG/5 ML DISP.SYRIN. IV ONE
--- NOTE | 2018-12-14 15:03 | RAD ---
MR#: [id number] Date of Study: 12/14/2018 Ordering Physician: RENALDO ENGLISH, Referring Physician: JUAN QUIROZ Tech: MAICO Tang, ARRT (R) (N) APPROVED REPORT Test Type: Pharmacological Stress Nurse/Tech: Natalie Saunders RN Test Indications: Intermittent Chest Pain, CAD Cardiac History: Hypertension, Diabetes, CABG 2 times, 7 stents, TIAs, decreased kidney function Medications: See Electronic Medical Record Medical History: See Electronic Medical Record Resting ECG: SR with BBB and PVC's Resting Heart Rate: 66 bpm Resting Blood Pressure: 134/71mmHg Pretest Chest Pain: No chest pain Nurse/Tech Notes S1,S2 and lungs slightly diminished throughout. Consent: The procedure was explained to the patient in lay terms. Informed consent was witnessed. Lex eout was entered into [employer]. History and Stress Test performed by MARYAM Emanuel Pharm. Details Pharmacologic stress testing was performed using 0.4mg per 5ml of regadenoson given intravenously ove r 7-10 seconds. Stress Symptoms Dizziness POST EXERCISE Reason for Termination: Infusion complete Target HR: No Max HR: 87 bpm 68% of Maximum Predicted HR: 127 bpm Max Blood Pressure: 124/61mmHg Blood Pressure response to exercise: Abnormal blood pressure response during stress. Chest Pain: No. Arrhythmia: Yes. PVC's ST Change: No. INTERPRETATION Stress EKG Conclusion: The resting EKG shows a sinus rhythm and nonspecific ST segment changes. The stress EKG shows no significant changes from baseline. No EKG evidence of stressed induced ischemia. Imaging Protocol IMAGE PROTOCOL: Rest Tc-99m/stress Tc-99m 1 day Rest: Stress: Viability: Radiopharm.Tc99m EvkwqfyqtPt61a Sestamibi Vxzj66bDl 33mCi Img Date 12/14/2018 12/14/2018 Inj-Img Lptm66nrw. 60min. Rest Admin Site:IV - Right HandAdministrator:MARYAM Emanuel Stress Admin Site: IV - Right HandAdministrator: RT Jose Guadalupe (R)(N) STRESS DATA End Diast. Vol.162.0mlLVEDV index BSA70.0ml End Syst. Vol.92.0mlLVESV index BSA40.0ml Myocardial Dctr720.0gEject. Ohajfoyx03.0% Stress Scores Regional WT2.00Summed WT25.00 Regional WM2.00Summed WM26.00 LV Perfusion The stress scans showed no significant defects. The rest scans showed no significant defects. Nuclear imaging shows no reversible ischemia or infarct. Wall Motion LV systolic function is mildly decreased with mild septal hypokinesis and an ejection fraction of 45% . LV Perf. Quant 17 Seg. SSS4.00 17 Seg. SRS0.00 17 Seg. SDS4.00 Stress Defect Extent (% LAD)15.60Rest Defect Extent (% LAD)0.00Rev. Defect Extent (% LAD)10.60 Stress Defect Extent (% LCX) 0.00Rest Defect Extent (% LCX)0.00Rev. Defect Extent (% LCX)0.00 Stress Defect Extent (% RCA)0.00Rest Defect Extent (% RCA)0.00Rev. Defect Extent (% RCA)0.00 Stress Defect Extent (% RAMBO)5.40Rest Defect Extent (% RAMBO)0.00Rev. Defect Extent (% RAMBO)3.70 Conclusion 1. No EKG evidence of stressed induced ischemia. 2. Nuclear imaging shows no reversible ischemia or infarct. 3. Mildly decreased LV systolic function with an ejection fraction of 45% and septal hypokinesis. 4. Moderately low risk Lexiscan nuclear stress test. Signed by : Renaldo English MD Electronically Approved : 12/14/2018 15:02:48
--- NOTE | 2018-12-14 15:05 | CARD ---
MR#: [id number] Date of Study: 12/14/2018 Ordering Physician: RENALDO ENGLISH, Referring Physician: RENALDO ENGLISH, Tech: Taylor Crocker [facility] APPROVED REPORT EXAM: Two-dimensional and M-mode echocardiogram with Doppler and color Doppler. Other Information Quality : GoodHR: 77bpm Rhythm : NSR INDICATION Chest Pain 2D DIMENSIONS RVDd3.6 (2.9-3.5cm)Left Atrium(2D)3.6 (1.6-4.0cm) IVSd0.9 (0.7-1.1cm)Aortic Root(2D)2.4 (2.0-3.7cm) LVDd5.2 (3.9-5.9cm)LVOT Diameter2.1 (1.8-2.4cm) PWd1.4 (0.7-1.1cm)LVDs3.7 (2.5-4.0cm) FS (%) 30.0 %SV74.2 ml Aortic Valve AoV Peak Cyrus.130.2cm/sAoV VTI23.0cm AO Peak GR.6.8mmHgLVOT Peak Cyrus.112.9cm/s LVOT VTI 22.48cmAO Mean GR.4mmHg CARL (VMAX)2.56dd5SZE (VTI)3.55cm2 Mitral Valve MV E Ssvctjcg16.3cm/sMV DECEL MUSE230zq MV A Rzsybdfh47.6cm/sMV HVJ05ti E/A Ratio1.2MVA (PHT)4.02cm2 Pulmonary Valve PV Peak Hpneadas24.8cm/sPV Peak Grad.3mmHg Pulmonary Vein S1 Wqpxlmjl56.3cm/sD2 Rgqdnzqc98.1cm/s PVa [id number] LEFT VENTRICLE The left ventricle is normal size. There is normal left ventricular wall thickness. The left ventricu lar systolic function is normal and the ejection fraction is within normal range. The Ejection Fracti on is 50-55%. There is normal LV segmental wall motion. Transmitral Doppler flow pattern is Grade I-a bnormal relaxation pattern. RIGHT VENTRICLE The right ventricle is normal size. There is normal right ventricular wall thickness. The right ventr icular systolic function is normal. ATRIA The left atrium size is normal. The right atrium size is normal. The interatrial septum is intact wit h no evidence for an atrial septal defect or patent foramen ovale as noted on 2-D or Doppler imaging. AORTIC VALVE The aortic valve is normal in structure and function. The aortic valve is trileaflet. Doppler and Col or Flow revealed trace aortic regurgitation. There is no significant aortic valvular stenosis. There is no aortic valvular vegetation. MITRAL VALVE The mitral valve is normal in structure and function. There is no evidence of mitral valve prolapse. There is no mitral valve stenosis. Doppler and Color-flow revealed trace to mild mitral regurgitation . TRICUSPID VALVE The tricuspid valve is normal in structure and function. Doppler and Color Flow revealed trace tricus pid regurgitation. There is no tricuspid valve prolapse or vegetation. There is no tricuspid valve st enosis. PULMONIC VALVE The pulmonic valve is not well visualized. GREAT VESSELS The aortic root is normal in size. The ascending aorta is normal in size. The IVC is normal in size a nd collapses >50% with inspiration. PERICARDIAL EFFUSION There is no evidence of significant pericardial effusion. Critical Notification Critical Value: No <Conclusion> The left ventricle is normal size. The left ventricular systolic function is normal and the ejection fraction is within normal range. The Ejection Fraction is 50-55%. There is no significant aortic valvular stenosis. Doppler and Color Flow revealed trace aortic regurgitation. Doppler and Color-flow revealed trace to mild mitral regurgitation. Doppler and Color Flow revealed trace tricuspid regurgitation. Signed by : Renaldo English MD Electronically Approved : 12/14/2018 15:05:16
== END | disposition home or self-care (01) ==
LOC: NM 10:41
PROVIDERS: ATTEND Internal Medicine Cardiovascular Disease
DX: I34.0 Nonrheumatic mitral (valve) insufficiency (principal); I10 Essential (primary) hypertension; E11.9 Type 2 diabetes mellitus without complications; Z95.1 Presence of aortocoronary bypass graft
CPT/HCPCS: 78452; 93017; 93306; A9500; J2785

== ENCOUNTER 2020-05-04 12:25 | Emergency (ER) | payer MEDICARE, OTHER ==
[~2020-05-04] VITALS: Ht 185.4 cm; Wt 91.0 kg
[~2020-05-04 12:25] MED LIST changes: +AMLO-187 PO; -AMLO10TA8 PO; +DAPT350V IV; +GABA600T7 PO; +PANT40TA77 PO; -REGADENOSON 0.4 MG/5 ML DISP.SYRIN. IV ONE; -ROPI0.5T2 PO; +ROPI0.5T4 PO
[2020-05-04 14:01] LABS: BASO % 1 % (0-3); EOS # 0.1 x10^3/uL (0.0-0.7); EOS % 1 % (0-3); HEMATOCRIT 41.9 % (39.0-53.0); HEMOGLOBIN 13.8 g/dL (13.0-17.5); LYMPH # 1.5 x10^3/uL (1.0-4.8); LYMPH % 30 % (24-48); MEAN CORPUSCULAR HEMOGLOBIN 26 pg (25-35); MEAN CORPUSCULAR HGB CONC 33 g/dL (31-37); MEAN CORPUSCULAR VOLUME 79 fL (79-100); MONO # 0.3 x10^3/uL (0.0-1.1); MONO % 7 % (0-9); NEUT # 3.1 x10^3/uL (1.8-7.7); NEUT % 62 % (31-73); PLATELET COUNT 133 x10^3/uL (140-400); RED BLOOD COUNT 5.31 x10^6/uL (4.30-5.70); RED CELL DISTRIBUTION WIDTH 14.8 % (11.5-14.5); WHITE BLOOD COUNT 5.1 x10^3/uL (4.0-11.0)
[2020-05-04 14:15] LABS: ALBUMIN 3.1 g/dL (3.4-5.0); ALBUMIN/GLOBULIN RATIO 0.7 (1.0-1.7); CALCIUM 9.1 mg/dL (8.5-10.1); CREATININE 1.6 mg/dL (0.7-1.3); GFR 51.8; MAGNESIUM 1.9 mg/dL (1.8-2.4); TOTAL BILIRUBIN 0.3 mg/dL (0.2-1.0)
[2020-05-04] MEDS ORDERED: ONDANSETRON PF 4 MG/2 ML VIAL. IV ONE (14:15)
[2020-05-04] MEDS ORDERED: fentaNYL PF VIAL 100 MCG/2 ML VIAL IV ONE (14:15)
[2020-05-04 14:17] LABS: TOTAL PROTEIN 7.3 g/dL (6.4-8.2)
[2020-05-04] MEDS ORDERED: IV NORMAL SALINE 1000ML BAG 1,000 ML IV ONE (14:30)
[2020-05-04] MEDS ORDERED: INSULIN REGULAR 100 UNIT/ML 3ML VIAL. IV ONE (14:30)
--- NOTE | 2020-05-04 14:47 | ED.ADGEN ---
Past Medical History Past Medical History: CAD, Diabetes-Type II, High Cholesterol, Hypertension, [place] Additional Past Medical Histor: prostate CA, H pylori Past Surgical History: Appendectomy, Cholecystectomy, Coronary Bypass Surgery (x3 and x4), TURP, Other (abdominal surgery for H Pylori) Additional Past Surgical Histo: abdominal clamp for H Pylori Smoking Status: Current Every Day Smoker Alcohol Use: None Drug Use: None General Adult EDM: Chief Complaint: OTHER COMPLAINTS HPI: HPI: Patient is a 69 year old AA male who presents to the emergency department, accompanied by his , with complaints of 2 large fluid-filled blisters to his lateral right lower leg and lateral right proximal foot for the last week. He denies any known injury or exposure to heat. Patient reports that he took a sock off and noticed the blisters. He denies any known injury, numbness, tingling, and cramps of the lower extremity. He denies any increased extremity swelling, fever, cough, shortness of breath, chest pain, palpitations, body aches, or fatigue. He reports a history of type II diabetes, CHF, CAD, high blood pressure, high cholesterol, [place], H. pylori infection, and prostate cancer. Patient reports he has been taking his medications as prescribed. He currently rates his pain a 10 out of 10 on the pain scale, he denies any alleviating factors, the pain is worse with palpation. Review of Systems: Review of Systems: Complete ROS is negative unless otherwise noted in HPI. Current Medications: Current Medications Medications (Trade) Dose Ordered Sig/[facility] Start Time Stop Time Status Last Admin Dose Admin Fentanyl Citrate (Fentanyl 2ml Vial) 50 mcg 1X ONCE 05/04/20 14:15 05/04/20 14:16 DC 05/04/20 14:24 50 MCG Insulin Human Regular (HumuLIN R VIAL) 6 unit 1X ONCE 05/04/20 14:30 05/04/20 14:31 DC 05/04/20 14:26 6 UNIT Ondansetron HCl (Zofran) 4 mg 1X ONCE 05/04/20 14:15 05/04/20 14:16 DC 05/04/20 14:25 4 MG Sodium Chloride 1,000 ml @ 1,000 mls/hr 1X ONCE 05/04/20 14:30 05/04/20 15:29 DC 05/04/20 14:25 1,000 MLS/HR Allergies: Allergies: Allergies Coded Allergies Type Severity Reaction Last Updated Verified No Known Drug Allergies 04/27/19 No Physical Exam: PE: See Above Constitutional: Well developed, well nourished, no acute distress, non-toxic appearance. [] HENT: Normocephalic, atraumatic, bilateral external ears normal, nose normal. [] Eyes: PERRLA, EOMI, conjunctiva normal, no discharge. [] Neck: Normal range of motion, no stridor. [] Cardiovascular:Heart rate regular rhythm Lungs & Thorax: Respirations even and unlabored, no retractions, no respiratory distress Skin: Warm, dry, no rash; there are 2 large fluid-filled blisters to the lateral aspect of the distal right lower extremity and proximal foot, no drainage, no surrounding erythema, no warmth, no pustule Extremities: BLE: No cyanosis, ROM intact, 1+ edema bilaterally, no erythema, no warmth, 2+ pedal pulses Neurologic: Alert and oriented X 3, no focal deficits noted. [] Psychologic: Affect normal, judgement normal, mood normal. [] Current Patient Data: Labs: Laboratory Tests Test 05/04/20 13:45 05/04/20 15:37 White Blood Count 5.1 x10^3/uL (4.0-11.0) Red Blood Count 5.31 x10^6/uL (4.30-5.70) Hemoglobin 13.8 g/dL (13.0-17.5) Hematocrit 41.9 % (39.0-53.0) Mean Corpuscular Volume 79 fL (79-100) Mean Corpuscular Hemoglobin 26 pg (25-35) Mean Corpuscular Hemoglobin Concent 33 g/dL (31-37) Red Cell Distribution Width 14.8 % (11.5-14.5) H Platelet Count 133 x10^3/uL (140-400) L Neutrophils (%) (Auto) 62 % (31-73) Lymphocytes (%) (Auto) 30 % (24-48) Monocytes (%) (Auto) 7 % (0-9) Eosinophils (%) (Auto) 1 % (0-3) Basophils (%) (Auto) 1 % (0-3) Neutrophils # (Auto) 3.1 x10^3/uL (1.8-7.7) Lymphocytes # (Auto) 1.5 x10^3/uL (1.0-4.8) Monocytes # (Auto) 0.3 x10^3/uL (0.0-1.1) Eosinophils # (Auto) 0.1 x10^3/uL (0.0-0.7) Basophils # (Auto) 0.0 x10^3/uL (0.0-0.2) Sodium Level 133 mmol/L (136-145) L Potassium Level 4.0 mmol/L (3.5-5.1) Chloride Level 98 mmol/L (98-107) Carbon Dioxide Level 25 mmol/L (21-32) Anion Gap 10 (6-14) Blood Urea Nitrogen 15 mg/dL (8-26) Creatinine 1.6 mg/dL (0.7-1.3) H Estimated GFR (Cockcroft-Gault) 51.8 BUN/Creatinine Ratio 9 (6-20) Glucose Level 510 mg/dL (70-99) *H Calcium Level 9.1 mg/dL (8.5-10.1) Magnesium Level 1.9 mg/dL (1.8-2.4) Total Bilirubin 0.3 mg/dL (0.2-1.0) Aspartate Amino Transferase (AST) 20 U/L (15-37) Alanine Aminotransferase (ALT) 16 U/L (16-63) Alkaline Phosphatase 142 U/L (46-116) H OY-Rha-N-Type Natriuretic Peptide 207 pg/mL (0-124) H Total Protein 7.3 g/dL (6.4-8.2) Albumin 3.1 g/dL (3.4-5.0) L Albumin/Globulin Ratio 0.7 (1.0-1.7) L Glucose (Fingerstick) 335 mg/dL (70-99) H Laboratory Tests 05/04/20 13:45 Laboratory Tests 05/04/20 13:45 Complete ROS is negative unless otherwise noted in HPI. Vital Signs: Vital Signs Date Time Temp Pulse Resp B/P (MAP) Pulse Ox O2 Delivery O2 Flow Rate FiO2 05/04/20 15:20 66 16 139/77 (97) 98 Room Air 05/04/20 12:30 97.7 97.7 EKG: EKG: [] Heart Score: C/O Chest Pain: No Risk Factors: Risk Factors: DM, Current or recent (<one month) smoker, HTN, HLP, family history of CAD, obesity. Risk Scores: Score 0 - 3: 2.5% MACE over next 6 weeks - Discharge Home Score 4 - 6: 20.3% MACE over next 6 weeks - Admit for Clinical Observation Score 7 - 10: 72.7% MACE over next 6 weeks - Early Invasive Strategies Radiology/Procedures: Radiology/Procedures: PROCEDURE: FOOT RIGHT 3V Right ankle x-rays 3 views HISTORY: Pain and swelling, osteomyelitis. FINDINGS: Spur the plantar calcaneus. Vein harvesting clips lower calf. Diffuse calf and ankle soft tissue edema and swelling. No fracture or dislocation. No periostitis or bone demineralization or bone destruction to localize a potential site of osteomyelitis. Skin blistering lateral hindfoot on the AP view. IMPRESSION: No acute osseous injury. Soft tissue edema and swelling of the lower calf and ankle. Blistering of the skin at the lateral foot. Right foot x-rays 3 views HISTORY: Blisters, pain and swelling, osteomyelitis. FINDINGS: Skin blistering along the lateral foot overlying the base of the fifth metacarpal. Diffuse soft tissue edema and mild swelling of the foot. No fracture. No dislocation. Small os peroneus. No periostitis or lytic bone destruction or bony mineralization to localize a potential site of osteomyelitis. Spur the plantar calcaneus. IMPRESSION: No acute osseous injury. Soft tissue edema and swelling. Blistering of the lateral foot overlying the base of the fifth metatarsal.[] Course & Med Decision Making: Course & Med Decision Making Pertinent Labs and Imaging studies reviewed. (See chart for details) 69-year-old male presents emergency department with complaints of 2 blisters to his right lower extremity that began a week ago. He denied any known injury. Patient reported significant medical history. Work-up included labs, x-rays, and medications. CBC revealed mildly decreased platelets of 133 otherwise unremarkable; CMP revealed a sodium of 133, creatinine of 1.6, glucose of 510, alk phos fate of 142, and BNP of 207. The patient was given 1 L of normal saline and 6 units of regular insulin IV for treatment of hyperkalemia. Blood sugar decreased to 335 after these medications. The patient also was given 4 mg of Zofran and 50 mcg of fentanyl in the emergency room for relief of his pain. X-rays of the right ankle and foot revealed no acute changes or osteomyelitis. 4 x 4's and Kerlix was applied over the blisters by Uche REYNOLDS. Patient was encouraged to check his blood sugar with meals and at bedtime and to take his medications as prescribed. Patient reported that he has a primary care doctor visit already scheduled for Tuesday, May 05, 2020. I instructed the patient to follow-up with his primary care doctor for further evaluation and treatment of hyperkalemia and lower extremity blisters. He was instructed to return to the emergency room if his blood sugar occasions and or he developed a fever. Prescription was written for hydrocodone 5/325 mg tablets to take as needed for severe pain. Patient verbalized an understanding of home care, medications, follow-up, and return to ED instructions and was in agreement with the plan of care. Dragon Disclaimer: Dragon Disclaimer: This electronic medical record was generated, in whole or in part, using a voice recognition dictation system. Departure Departure Impression: Primary Impression: Bullosis diabeticorum Additional Impression: Hyperglycemia Disposition: 01 DC HOME SELF CARE/HOMELESS Condition: STABLE Referrals: UNKNOWN PCP NAME (PCP) Patient Instructions: Bullous Pemphigoid, Hyperglycemia, Buop-[id number]-Eptk Additional Instructions: Fill the prescription and take as directed for severe pain. Check your blood sugar at meals and bedtime, take your home medications as previously prescribed. Do no pop the blisters on your leg/foot, they will resolve on their own over time. Follow up with your primary care doctor on Wednesday as planned. Return to the ER if your symptoms worsen or you develop a fever. Scripts Hydrocodone Bit/Acetaminophen (HYDROCODONE-APAP 5-325 ) 1 Tab Tablet 0.5-1 TAB PO PRN Q6HRS PRN for SEVERE PAIN 7-10 for 3 Days, #10 TAB 0 Refills Prov: HERNAN GALARZA APRN 05/04/20 Problem Qualifiers HERNAN GALARZA APRN May 04, 2020 14:47
[2020-05-04 15:20] VITALS: BP 139/77
--- NOTE | 2020-05-04 15:24 | RAD ---
Right ankle x-rays 3 views HISTORY: Pain and swelling, osteomyelitis. FINDINGS: Spur the plantar calcaneus. Vein harvesting clips lower calf. Diffuse calf and ankle soft t issue edema and swelling. No fracture or dislocation. No periostitis or bone demineralization or bone destruction to localize a potential site of osteomyelitis. Skin blistering lateral hindfoot on the A P view. IMPRESSION: No acute osseous injury. Soft tissue edema and swelling of the lower calf and ankle. Blis tering of the skin at the lateral foot. Right foot x-rays 3 views HISTORY: Blisters, pain and swelling, osteomyelitis. FINDINGS: Skin blistering along the lateral foot overlying the base of the fifth metacarpal. Diffuse soft tissue edema and mild swelling of the foot. No fracture. No dislocation. Small os peroneus. No p eriostitis or lytic bone destruction or bony mineralization to localize a potential site of osteomyel itis. Spur the plantar calcaneus. IMPRESSION: No acute osseous injury. Soft tissue edema and swelling. Blistering of the lateral foot o verlying the base of the fifth metatarsal. Electronically signed by: Joo Thornton MD (05/04/2020 3:21 PM) [id number]
[2020-05-04] MEDS ORDERED: HYDR-2761 PO (15:44)
== END 2020-05-04 16:00 | disposition home or self-care (01) ==
LOC: ER 12:25
DX: S80.821A Blister (nonthermal), right lower leg, initial encounter (principal); S90.821A Blister (nonthermal), right foot, initial encounter; E11.628 Type 2 diabetes mellitus with other skin complications; E11.65 Type 2 diabetes mellitus with hyperglycemia; E78.00 Pure hypercholesterolemia, unspecified; I10 Essential (primary) hypertension; F17.200 Nicotine dependence, unspecified, uncomplicated; I25.10 Atherosclerotic heart disease of native coronary artery without angina pectoris; I25.2 Old myocardial infarction; Z95.1 Presence of aortocoronary bypass graft
CPT/HCPCS: 36415; 73610; 73630; 80053; 82962; 83735; 83880; 85025; 96361; 96374; 96375; 99285; J1815; J2405; J3010; J7030

== ENCOUNTER 2020-09-19 01:06 | Observation (INO) | payer MEDICARE ==
[~2020-09-19] VITALS: Ht 182.9 cm; Wt 99.0 kg
--- NOTE | 2020-09-19 01:25 | PHYS DOC ---
Past Medical History Past Medical History: CAD, Diabetes-Type II, High Cholesterol, Hypertension, [place] Additional Past Medical Histor: prostate CA, H pylori Past Surgical History: Appendectomy, Cholecystectomy, Coronary Bypass Surgery, TURP, Other Additional Past Surgical Histo: abdominal clamp for H Pylori Smoking Status: Current Every Day Smoker Alcohol Use: None Drug Use: None General Adult EDM: Chief Complaint: SLURRED SPEECH HPI: HPI: Patient is a 69 year old male past medical history of coronary artery disease C VA hypertension hyperlipidemia diabetes presents for evaluation of slurred speech. Patient states he fell asleep watching the news around 2200 hrs. Patient states he woke up 010 0 hours and had slurred speech. Patient still over the last 3 days he has felt dizzy when he walks and felt weakness in his legs. Patient denied any associated headache chest pain or shortness of breath. On exam patient has a definite slurred speech. He has no facial weakness. Patient's full range of motion of bilateral upper/lower extremities with no focal weakness. Patient's heart rate is regular. Lungs are clear abdomen is soft without rebound or guarding. Patient's NIH stroke scale is 1. Review of Systems: Review of Systems: General: alert, no acute distress. Skin: warm, dry and intact, no erythema, no rash. HENT: bilateral external ears normal, oropharynx moist, nose normal. Head:: Normocephalic, atraumatic. Neck: Trachea midline. Eyes: EOMI, Normal conjunctiva, No drainage CARDIOVASCULAR: Regular rate and rhythm RESPIRATORY: No respiratory distress Back: Full range of motion. MUSCULOSKELETAL: Full range of motion of bilateral upper and lower extremities. GASTROINTESTINAL: Abdomen soft without rebound or guarding. NEUROLOGICAL: Alert and noted to person, place and time. No neurological deficits observed positive slurred speech Psychiatric: Cooperative. Normal judgment Heart Score: C/O Chest Pain: N/A Risk Factors: Risk Factors: DM, Current or recent (<one month) smoker, HTN, HLP, family history of CAD, obesity. Risk Scores: Score 0 - 3: 2.5% MACE over next 6 weeks - Discharge Home Score 4 - 6: 20.3% MACE over next 6 weeks - Admit for Clinical Observation Score 7 - 10: 72.7% MACE over next 6 weeks - Early Invasive Strategies Allergies: Allergies: Allergies Coded Allergies Type Severity Reaction Last Updated Verified No Known Drug Allergies 04/27/19 No Physical Exam: PE: General: alert, no acute distress. Skin: warm, dry and intact, no erythema, no rash. HENT: bilateral external ears normal, oropharynx moist, nose normal. Head:: Normocephalic, atraumatic. Neck: Trachea midline. Eyes: EOMI, Normal conjunctiva, No drainage CARDIOVASCULAR: Regular rate and rhythm RESPIRATORY: No respiratory distress Back: Full range of motion. MUSCULOSKELETAL: Full range of motion of bilateral upper and lower extremities. GASTROINTESTINAL: Abdomen soft without rebound or guarding. NEUROLOGICAL: Alert and noted to person, place and time. No neurological deficits observed, slurred speech Psychiatric: Cooperative. Normal judgment EKG: EKG: Performed at 0132 Rate 76 Normal sinus rhythm No ST elevation No ST depression No acute DE [] Radiology/Procedures: Radiology/Procedures: [] Impression: Noncontrast CT head discussed with radiologist no acute process. Course & Med Decision Making: Course & Med Decision Making Pertinent Labs and Imaging studies reviewed. (See chart for details) [] Was evaluated for chief complaint. Work-up consisted of laboratory analysis radiologic imaging and EKG. Results reviewed and discussed with patient and family. CT imaging of head and neck showed no acute abnormalities. Patient was not a TPA candidate due to the fact unknown time of onset. Patient was treated with aspirin. Patient noted to have a glucose greater than 500. Treatment included IV fluids and insulin. Patient was admitted to the hospitalist with neurology consult. Critical Care Time 35 Minutes Time spent on reviewing labs, radiologic imaging, documentation, and discussing patient with consults. Keshia Disclaimer: Keshia Disclaimer: This electronic medical record was generated, in whole or in part, using a voice recognition dictation system. NIHSS Stroke Scale NIH Stroke Scale: NIH Stroke Scale Response (Comments) Value Level of Consciousness: 0 Alert/Responsive 0 LOC Questions: 0 Answers both correctly 0 LOC Commands: 0 Performs both tasks 0 Best Gaze: 0 Normal 0 Visual: 0 No visual loss 0 Facial Palsy: 0 Normal, symmetrical 0 Motor - Left Arm 0 No drift 0 Motor - Right Arm 0 No drift 0 Motor - Left Leg 0 No drift 0 Motor: Right Leg 0 No drift 0 Limb Ataxia: 0 Absent 0 Sensory: 0 No loss 0 Best Language: 0 Normal 0 Dysathria: 1 Mild to moderate 1 Extinction and Inattention: 0 Normal 0 Total 1 Departure Departure Impression: Primary Impression: CVA (cerebral vascular accident) Additional Impressions: Slurred speech Hyperglycemia Disposition: ADMITTED INPATIENT Condition: STABLE Referrals: UNKNOWN PCP NAME (PCP) BERTA BORRERO DO Sep 19, 2020 01:25
--- NOTE | 2020-09-19 01:26 | RAD ---
CT STROKE HEAD W/O Date: 09/19/2020 1:10 AM Clinical Indication: SLURRED SPEECH Comparison: None. Technique: 5 mm axial tomographic images were obtained of the head without contrast. These were view ed on brain and bone windows. One or more of the following dose reduction techniques were utilized: A utomated exposure control (AEC), Adjustment of mA and/or kV according to patient size, Use of iterati ve reconstruction technique such as ASiR, CT scan done according to ALARA and image gently/image rodriguez ly Findings: Mild generalized cerebral and cerebellar volume loss. Mild nonspecific periventricular hypoattenuatio n, most commonly seen with chronic small vessel ischemic disease. Calcified atherosclerosis of the bi lateral cavernous and paraclinoid internal carotid arteries and intracranial vertebral arteries. Left caudate head chronic appearing lacunar infarct. No intra- or extra-axial mass or fluid collection. No acute hemorrhage. The ventricles are normal in size, shape, and morphology. The patterson-white matter junction is normal. The subarachnoid cisterns are patent. The visualized paranasal sinuses are normal. The visualized portions of the orbits and globes are no rmal. The mastoid air cells are clear. The rubber liner topogram shows no lytic lesion or fracture. Impression: No acute hemorrhage or large territory patterson-white loss. FOR INTERNAL CODING PURPOSES Critical result: Findings discussed with emergency department at 09/19/2020 1:21 AM. RESULT CODE: (C) Electronically signed by: Dwight Hart MD (09/19/2020 1:23 AM) [facility]
[2020-09-19] MEDS ORDERED: IOHEXOL 350 MG/ML 100 ML VIAL. IV ONE (01:30)
[2020-09-19 01:43] LABS: BASO % 0 % (0-3); EOS # 0.1 x10^3/uL (0.0-0.7); EOS % 2 % (0-3); HEMATOCRIT 39.4 % (39.0-53.0); HEMOGLOBIN 12.9 g/dL (13.0-17.5); LYMPH # 1.9 x10^3/uL (1.0-4.8); LYMPH % 32 % (24-48); MEAN CORPUSCULAR HEMOGLOBIN 27 pg (25-35); MEAN CORPUSCULAR HGB CONC 33 g/dL (31-37); MEAN CORPUSCULAR VOLUME 82 fL (79-100); MONO # 0.5 x10^3/uL (0.0-1.1); MONO % 8 % (0-9); NEUT # 3.4 x10^3/uL (1.8-7.7); NEUT % 58 % (31-73); PLATELET COUNT 151 x10^3/uL (140-400); RED BLOOD COUNT 4.79 x10^6/uL (4.30-5.70); RED CELL DISTRIBUTION WIDTH 16.1 % (11.5-14.5); WHITE BLOOD COUNT 5.9 x10^3/uL (4.0-11.0)
[2020-09-19] MEDS ORDERED: CONTRAST GIVEN. MC PRN (01:45)
--- NOTE | 2020-09-19 01:56 | RAD ---
EXAM: CTA HEAD AND NECK W/WO CONTRAST DATE: 09/19/2020 1:20 AM INDICATION: SLURRED SPEECH TECHNIQUE: CTA angiogram of the head and neck was obtained after IV bolus administration of 75 cc of Omnipaque 350. The images were sent to workstation and multiplanar reconstructions were obtained. Mu ltiplanar reconstruction images to include MIP and 3-D reconstruction images are submitted. One or more of the following dose reduction techniques were utilized: Automated exposure control (AEC ), Adjustment of mA and/or kV according to patient size, Use of iterative reconstruction technique greenfield ch as ASiR, CT scan done according to ALARA and image gently/image wisely COMPARISON: Noncontrast CT head done earlier the same day. FINDINGS: CTA Head: Atherosclerosis of the cavernous and paraclinoid ICAs with 50 percent stenosis on the right and 25 pe rcent stenosis on the left. Azygos INGRID. Mild narrowing of distal MCA branches. The distal vertebral a rteries, basilar artery, and posterior cerebral arteries are patent and normal caliber. No aneurysm o r arteriovenous malformation is seen. CTA Neck: Right carotid: The right common carotid artery is patent and normal caliber. Mild atherosclerosis of the carotid bifurcation. No stenosis of the right internal carotid artery per NASCET criteria. The ri ght external carotid artery is patent. Left carotid: The left common carotid artery is patent and normal caliber. Mild atherosclerosis of th e carotid bifurcation. No stenosis of the left internal carotid artery per NASCET criteria. The left external carotid artery is patent. Right vertebral: The right vertebral artery is patent and normal caliber. Left vertebral: The left vertebral artery is patent and normal caliber. The visualized portions of the aortic arch are normal. The origins of the brachiocephalic and subclav sima arteries are normal. No cervical lymphadenopathy. The thyroid gland is normal. The parotid and submandibular glands are no rmal. The visualized aerodigestive tract is unremarkable. Mild multilevel degenerative disc height loss. Multilevel disc protrusions and marginal osteophytes r esults in multilevel spinal canal stenosis. Multilevel uncovertebral and facet arthrosis with multile guerda neural foraminal narrowing. The visualized portions of the lungs are clear. IMPRESSION: 1. No intracranial large vessel occlusion. 2. No stenosis of the cervical carotid or vertebral arteries. 3. Intracranial atherosclerotic disease. No severe stenosis. FOR INTERNAL CODING PURPOSES Critical result: Findings discussed with Dr. Lakhani at 09/19/2020 1:50 AM. RESULT CODE: (C) PQRS Compliance Statement - Stenosis calculations for CT, MR and conventional angiography are based u joey measurement of the distal ICA diameter in accordance with the NASCET methodology. Electronically signed by: Dwight Hart MD (09/19/2020 1:53 AM) [facility]
--- NOTE | 2020-09-19 02:14 | RAD ---
XR CHEST 1V INDICATION: code stroke COMPARISON STUDY: 04/27/2019. FINDINGS: Lungs: Normal lung volume. No pulmonary mass or consolidation. The tracheobronchial tree and hilar st ructures are normal. Pleura: No pleural effusion or pneumothorax. Heart and Mediastinum: Cardiomegaly.. Tortuous thoracic aorta. Median sternotomy. IMPRESSION: No focal airspace disease. Electronically signed by: Dwight Hart MD (09/19/2020 2:12 AM) [facility]
[2020-09-19 02:32] LABS: ALBUMIN 3.1 g/dL (3.4-5.0); ALBUMIN/GLOBULIN RATIO 0.9 (1.0-1.7); CALCIUM 8.6 mg/dL (8.5-10.1); CREATININE 2.1 mg/dL (0.7-1.3); GFR 37.9; POTASSIUM 3.5 mmol/L (3.5-5.1); TOTAL BILIRUBIN 0.2 mg/dL (0.2-1.0); TOTAL PROTEIN 6.7 g/dL (6.4-8.2)
[2020-09-19 02:53] LABS: PROTHROMBIN TIME PATIENT 12.3 SEC (11.7-14.0)
[2020-09-19] MEDS ORDERED: INSULIN REGULAR 100 UNIT/ML 3ML VIAL. SQ ONE (03:00)
[2020-09-19] MEDS ORDERED: ONDANSETRON PF 4 MG/2 ML VIAL. IV PRN (03:00)
[2020-09-19] MEDS: IV NORMAL SALINE 1000ML BAG 1,000 ML IV SCH ×2 (03:39→17:47)
[2020-09-19 03:50] VITALS: BP 113/69
[2020-09-19 07:00] VITALS: BP 107/65
[2020-09-19 11:00] VITALS: BP 118/77
--- NOTE | 2020-09-19 11:02 | NUR ---
Wound/Ostomy Care Wound Type/Assessment: Patient seen per wound care consult. See wound assessment. Patient has a DFU to the right lateral ankle. Wound cleansed and assessed. Patient stated he has HH and has been taking care of this wound and he has a doctor in [place] who is also over seeing this wound. The wound is slough covered with minimal granulation or epithelization. Treatment Recommendations/Plan: Recommendations for honey alginate to be applied to wound bed and cover with foam dressing. Change every 3 days. Education provided: Patient educated on dressing changes and PU prevention. Offloading surface/device: N/A Recommended Referrals/Tests: N/A Discharge Recommendations for dressings: Dressing change instructions left in room as well as honey alginate for next dressing change. Patient will follow up with his physician regarding wound care after discharge. Patient is able to self turn and ambulate. No other wounds noted. Bed lowered and call light in reach. Wound care will follow up on 09/25/20.
[2020-09-19 11:19] LABS: CHOLESTEROL/HDL RATIO 2.6
--- NOTE | 2020-09-19 11:27 | NUR ---
SW following. Discussed with RN, pt from home with , room air, NPO. ST and MRI ordered. Neurology following. RN advised no SW needs at this time. SW will continue to follow.
[2020-09-19] MEDS ORDERED: DEXTROSE 50% 25 GM / 50ML DISP.SYRIN. IV PRN (12:00)
--- NOTE | 2020-09-19 13:09 | CONS ---
DATE OF CONSULTATION: 09/19/2020 REFERRING PHYSICIAN: Scott Moreno MD REASON FOR CONSULTATION: Evaluate for stroke. HISTORY OF PRESENT ILLNESS: The patient is a 69-year-old man who presented to [facility] with right leg numbness. He woke up early in the morning with slurred speech. He had been having some dizziness over the last 3 previous days. When he would try to walk, he would have some weakness in his legs with the right side much heavier. He has not had headache associated. There has been no change in vision. He has not had trouble with the arms. He has longstanding diabetes and the sugars have been out of control. He admits he is not always taking his insulin regularly. He does not report any difficulty with speech or cognition. There has been no change of vision or hearing. He has not had a recent fall, although has had a few falls in the past. PAST MEDICAL HISTORY: 1. Coronary artery disease. 2. Diabetes mellitus for over 20 years. 3. Hyperlipidemia. 4. Hypertension. 5. History of myocardial infarction. 6. History of prostate cancer. 7. History of H. pylori. 8. Appendectomy. 9. Cholecystectomy. 10. Coronary artery bypass surgery. 11. Transurethral resection of the prostate. 12. History of severe hyperglycemia. 13. History of acute renal failure. ALLERGIES: No known allergies to drugs. MEDICATIONS: Prior to admission; allopurinol 100 mg, amlodipine 10 mg, aspirin 81 mg, atorvastatin 40 mg, vitamin D3; clonidine 0.3 mg tablets, two tablets twice per day; clopidogrel 75 mg, daptomycin 200 and 350 mg vial, furosemide 20 mg, hydralazine 50 mg four times per day, hydrocodone/acetaminophen one half to one tablet every 6 hours as needed, insulin, lisinopril 40 mg, loratadine 10 mg, meloxicam 15 mg, metoprolol 25 mg, pantoprazole 40 mg, ropinirole 0.5 mg at night and tamsulosin 0.4 mg. FAMILY HISTORY: Coronary artery disease. SOCIAL HISTORY: He is a smoker. He is and lives at home with his . He does not drink alcohol or use recreational drugs. REVIEW OF SYSTEMS: He has not complained of any headache. There has been no acute change of vision or hearing. He is not aware of any cognitive loss. He has been able to chew and swallow. He does not complain of shortness of breath, chest or abdominal pain. He does not have excessive bone or joint pain. He has not had fever or rash. Denies any gastrointestinal or genitourinary complaint. Does have some numbness in his feet. He has heaviness of the right leg. Does not have any psychiatric concerns. He often does have swelling of his feet and legs, especially if he is standing for prolonged times. Does not complain of excessive bruising or bleeding. PHYSICAL EXAMINATION: VITAL SIGNS: The blood pressure was 107/65, pulse 79, respirations 17, temperature 97.8 degrees Fahrenheit orally. Oximetry was 100% on room air. His weight was 99 kilograms, height 72 inches with a calculated body mass index of 29.6. NEUROLOGIC: He was alert, awake and cooperative. Speech was fluent and clear. He had a good fund of recent and remote knowledge. Attention and concentration was intact. He appeared well-groomed and well nourished. He was fully oriented. Examination of the cranial nerves revealed visual noble were full to confrontation. Extraocular movements were intact. The eyes were conjugate. Pursuit movements were smooth and saccadic eye movements were without dysmetria. Facial sensation was intact. The muscles of mastication and facial expression were powerful symmetrically. Hearing was intact to finger rub. The palate arched symmetrically and the tongue was midline with full motion. Sternocleidomastoid and trapezius were powerful bilaterally. Muscle bulk and tone was normal. There was no arm drift or abnormal movement. There was no leg drift. The power was full and symmetric in the upper and lower extremities. Reflexes were absent throughout. The toes were not upgoing. Coordination testing with [id number], heel to horowitz, fine motor and rapid alternating movements was well performed. Sensory exam was intact to pain, light touch, proprioception, graphesthesia, cold thermal and vibration in the upper extremities. In the lower extremities, there was more sensory shading of the right leg. There was minimal sensory shading of the left leg. There was no extinction to double simultaneous stimulation. He was able to stand and bear weight. He initially felt lightheaded when getting up. He was able to take several steps forward and backward. He could stand on heels or toes. Romberg stance was negative. Auscultation of the carotid arteries did not reveal a bruit. HEART: Rhythm was regular, without a murmur. EXTREMITIES: Peripheral pulses were symmetric in the wrists diminished in the feet. There was edema of the feet and ankles and lower calves. LABORATORY DATA: CBC was performed on 09/19/2020 revealing a normal white blood cell count, hematocrit and platelet count. The hemoglobin was diminished at 12.1. Chemistries were performed 09/19/2020. This revealed sodium low at 135. Potassium, chloride and CO2 were normal. BUN was normal, but creatinine was 2.1 with a GFR that calculated at 37.9. Glucose was elevated to 531. Calcium was normal. The liver enzymes were not elevated except alkaline phosphatase of 126. Total protein was normal, but albumin was low at 3.1. More recent blood sugars on 09/19/2020 have come down to 223. Troponin measured was negative. Lipid profile was performed on 09/19/2020 revealing a total cholesterol of 116, triglycerides of 80, HDL was 45, LDL 55 and VLDL was 16. The cholesterol/HDL ratio was 2.6. Alcohol level was measured and not detected. PT/INR from 09/19/2020 was 0.9 and APTT was 29. DIAGNOSTIC RESULTS: Chest x-ray was performed on 09/19/2020 and compared to 04/27/2019 with no focal airspace disease. CT scan of the brain was performed on 09/19/2020 revealing no acute hemorrhage or evidence of a large territory patterson-white loss. CT angiogram of the head and neck was performed with and without contrast on 09/19/2020. This revealed no intracranial large vessel occlusion. There was no stenosis of cervical, carotid or vertebral arteries. Intracranial atherosclerotic disease was noted, but no severe stenosis. IMPRESSION: The patient is a pleasant 69-year-old man who had presented with a complaint of right leg numbness and heaviness. He also presented with severe hyperglycemia. He also had a report of slurred speech and dizziness. At the present time, his speech would seen back to normal. I do not detect focal weakness, but there is some sensory loss of the right leg. It is possible this could represent left hemispheric stroke, perhaps in the thalamus or internal capsule. It is also possible that this may be all metabolic because of the uncontrolled diabetes. RECOMMENDATIONS: We will obtain an MRI brain to better evaluate for stroke as a CT scan of the head could easily missed this for several days. If the MRI does confirm an acute stroke, then we will get on the stroke pathway and initiate further stroke investigation. If MRI is negative, then I would continue to work on the metabolic issues. I appreciate being involved in his care. JOSIE/ALDO DR: Abhay TID: [id number] CC: FRANCES HUANG MD
[2020-09-19] MEDS: INSULIN LISPRO 300 UNITS/3 ML VIAL. SQ SCH ×3 (13:58→17:46)
[2020-09-19 15:00] VITALS: BP 123/72
--- NOTE | 2020-09-19 15:37 | PDOC1 ---
History and Physical Date of Service: DOS: DATE: 09/19/20 TIME: 15:35 Chief Complaint: Problems: (1) DM2 (diabetes mellitus, type 2) (2) Accelerated hypertension (3) SHABANA (acute kidney injury) (4) CVA (cerebral vascular accident) Chief Complain: Slurred speech right leg numbness History of Present Illness: HPI: Patient is 69-year-old male who presented overnight due to slurred speech and right leg numbness. Patient reports he had been feeling dizzy for a few days and when he awoke this morning noticed he was having difficulty speaking and was told he was slurring his words. He also notices right leg was numb and difficulty ambulating. Other than this he is not having any other symptoms including no headaches, no vision change, no upper extremity weakness, no left- sided weakness, no loss of bowel or bladder function no hearing changes, no confusion. Patient does have a history of diabetes is relatively uncontrolled sugar on admission greater than 400. After admission and was home was able to evaluate the patient his speech had returned essentially to normal and is not having as much weakness in his leg however was still numb. Neurology consulted. Past Medical/Surgical History: PMH/PSH: CAD, type 2 diabetes, hyperlipidemia, hypertension, history of VT, history of CABG Allergies: Allergies: Coded Allergies: No Known Drug Allergies (Unverified , 04/27/19) Family History: Family History: CAD Social History: Social History: Patient is a smoker, denies alcohol drug use Current Medications: Current Medications Current Medications Iohexol (Omnipaque 350 Mg/ml) 75 ml 1X ONCE IV ; Start 09/19/20 at 01:30; Stop 09/19/20 at 01:32; Status DC Info (CONTRAST GIVEN -- Rx MONITORING) 1 each PRN DAILY PRN MC SEE COMMENTS; Start 09/19/20 at 01:45; Stop 09/21/20 at 01:44 Insulin Human Regular (HumuLIN R VIAL) 10 unit 1X ONCE SQ Last administered on 09/19/20at 03:10; Start 09/19/20 at 03:00; Stop 09/19/20 at 03:01; Status DC Ondansetron HCl (Zofran) 4 mg PRN Q8HRS PRN IV NAUSEA/VOMITING; Start 09/19/20 at 03:00; Stop 09/20/20 at 02:59 Sodium Chloride 1,000 ml @ 75 mls/hr [id number] IV Last administered on 09/19/20at 03:39; Start 09/19/20 at 03:00; Stop 09/20/20 at 02:59 Lorazepam (Ativan Inj) 1 mg 1X ONCE IVP Last administered on 09/19/20at 12:54; Start 09/19/20 at 11:45; Stop 09/19/20 at 11:46; Status DC Insulin Human Lispro (HumaLOG) 0-7 UNITS TIDWMEALS SQ Last administered on 09/19/20at 13:58; Start 09/19/20 at 12:00 Dextrose (Dextrose 50%-Water Syringe) 12.5 gm PRN Q15MIN PRN IV SEE COMMENTS; Start 09/19/20 at 12:00 Insulin Glargine (Lantus Syringe) 10 unit QHS SQ ; Start 09/19/20 at 21:00 Allopurinol (Zyloprim) 100 mg DAILY PO ; Start 09/19/20 at 16:00 Amlodipine Besylate (Norvasc) 10 mg DAILY PO ; Start 09/19/20 at 16:00 Aspirin (Aspirin Chewable) 81 mg DAILY PO ; Start 09/19/20 at 16:00 Atorvastatin Calcium (Lipitor) 40 mg QHS PO ; Start 09/19/20 at 21:00 Vitamin D (Vitamin D3) 1,000 unit DAILY PO ; Start 09/19/20 at 16:00 Clopidogrel Bisulfate (Plavix) 75 mg DAILY PO ; Start 09/19/20 at 16:00 Furosemide (Lasix) 20 mg DAILY PO ; Start 09/19/20 at 16:00 Metoprolol Tartrate (Lopressor) 25 mg HS PO ; Start 09/19/20 at 21:00; Status UNV Pantoprazole Sodium (Protonix) 40 mg DAILYAC PO ; Start 09/19/20 at 16:00 Tamsulosin HCl (Flomax) 0.4 mg HS PO ; Start 09/19/20 at 21:00 Cetirizine HCl (ZyrTEC) 10 mg PRN DAILY PRN PO ALLERGIES; Start 09/19/20 at 15:45 Non-Formulary Medication (Ropinirole Hcl ) 0.5 mg HS PO ; Start 09/19/20 at 21:00; Status UNV Insulin Human Lispro (HumaLOG) 10 units TIDWMEALS SQ ; Start 09/19/20 at 17:00; Status UNV Active Scripts Active Hydrocodone-Apap 5-325 (Hydrocodone Bit/Acetaminophen) 1 Tab Tablet 0.5-1 Tab PO PRN Q6HRS PRN 3 Days Pantoprazole Sodium (Pantoprazole Sodium) 40 Mg Tablet.dr 40 Mg PO DAILYAC Daptomycin 350 Mg Vial 590 Mg IV DAILY Hydrocodone-Apap 5-325 (Hydrocodone Bit/Acetaminophen) 1 Tab Tablet 1 Tab PO PRN Q6HRS PRN 3 Days Reported Levemir (Insulin Detemir) 100 Unit/1 Ml Vial 34 Unit SQ HS Novolog (Insulin Aspart) 100 Unit/1 Ml Cartridge 10 Unit SQ TIDWMEALS Ropinirole Hcl 0.5 Mg Tablet 0.5 Mg PO HS Flomax (Tamsulosin Hcl) 0.4 Mg Cap.er.24h 0.4 Mg PO HS Metoprolol Tartrate 25 Mg Tablet 25 Mg PO HS Meloxicam 15 Mg Tablet 1 Tab PO PRN DAILY PRN Loratadine 10 Mg Tablet 1 Tab PO PRN DAILY PRN Lisinopril 40 Mg Tablet 1 Tab PO DAILY Hydralazine Hcl 50 Mg Tablet 50 Mg PO QID Furosemide 20 Mg Tablet 20 Mg PO DAILY Clopidogrel (Clopidogrel Bisulfate) 75 Mg Tablet 1 Tab PO DAILY Vitamin D3 (Cholecalciferol (Vitamin D3)) 1,000 Unit Tablet 1 Tab PO DAILY Clonidine Hcl 0.3 Mg Tablet 2 Tab PO BID Atorvastatin Calcium 40 Mg Tablet 1 Tab PO QHS Aspirin 81 Mg Tab.chew 1 Tab PO DAILY Allopurinol 100 Mg Tablet 1 Tab PO DAILY Amlodipine Besylate 10 Mg Tablet 10 Mg PO DAILY ROS: Review of Systems Review of System Negative unless noted in HPI Physical Exam: Vital Signs: Vital Signs Date Time Temp Pulse Resp B/P (MAP) Pulse Ox O2 Delivery O2 Flow Rate FiO2 09/19/20 11:00 97.8 78 17 118/77 (91) 100 Room Air 97.8 Physcial Exam: GEN: No apparent distress. Alert and oriented HEENT: Normal cephalic, atraumatic, external auditory canals are patent EYES: Extraocular muscles are intact, pupil are equally round and reactive to light and accommodation MUSCULOSKELETAL: Well developed , well nourished, good range of motion ENDOCRINE: No thyromegaly was palpated LYMPHATICS: No cervical chain or axillary nodes were noted HEMATOPOIETIC: No bruising NECK: Supple, no JVD, no thyromegaly was noted LUNGS: Somewhat coarse throughout likely due to smoking history HEART: RRR, S, S2 present. Peripheral pulses intact, no obvious murmurs noted ABDOMEN: Soft, nontender. Positive bowel sounds, no organomegaly, normal bowel sounds EXTREMITIES: Without clubbing, cyanosis, or edema. Pedal pulses intact. NEUROLOGIC: Normal speech and tone. A&O x 3, moves all extremities, no obvious focal deficits PSYCHIATRIC: Normal affect, normal mood. Stable SKIN: No ulcerations or rashes, good skin turgor, no jaundice VASCULAR: Good capillary refill, neurovascular bundle appears to be intact Labs: Labs: Laboratory Tests Test 09/19/20 01:20 09/19/20 01:30 09/19/20 01:32 09/19/20 02:10 White Blood Count 5.9 x10^3/uL (4.0-11.0) Red Blood Count 4.79 x10^6/uL (4.30-5.70) Hemoglobin 12.9 g/dL (13.0-17.5) Hematocrit 39.4 % (39.0-53.0) Mean Corpuscular Volume 82 fL (79-100) Mean Corpuscular Hemoglobin 27 pg (25-35) Mean Corpuscular Hemoglobin Concent 33 g/dL (31-37) Red Cell Distribution Width 16.1 % (11.5-14.5) Platelet Count 151 x10^3/uL (140-400) Neutrophils (%) (Auto) 58 % (31-73) Lymphocytes (%) (Auto) 32 % (24-48) Monocytes (%) (Auto) 8 % (0-9) Eosinophils (%) (Auto) 2 % (0-3) Basophils (%) (Auto) 0 % (0-3) Neutrophils # (Auto) 3.4 x10^3/uL (1.8-7.7) Lymphocytes # (Auto) 1.9 x10^3/uL (1.0-4.8) Monocytes # (Auto) 0.5 x10^3/uL (0.0-1.1) Eosinophils # (Auto) 0.1 x10^3/uL (0.0-0.7) Basophils # (Auto) 0.0 x10^3/uL (0.0-0.2) Sodium Level 135 mmol/L (136-145) Potassium Level 3.5 mmol/L (3.5-5.1) Chloride Level 98 mmol/L (98-107) Carbon Dioxide Level 25 mmol/L (21-32) Anion Gap 12 (6-14) Blood Urea Nitrogen 22 mg/dL (8-26) Creatinine 2.1 mg/dL (0.7-1.3) Estimated GFR (Cockcroft-Gault) 37.9 BUN/Creatinine Ratio 10 (6-20) Glucose Level 531 mg/dL (70-99) Calcium Level 8.6 mg/dL (8.5-10.1) Total Bilirubin 0.2 mg/dL (0.2-1.0) Aspartate Amino Transf (AST/SGOT) 20 U/L (15-37) Alanine Aminotransferase (ALT/SGPT) 21 U/L (16-63) Alkaline Phosphatase 126 U/L (46-116) Troponin I Quantitative < 0.017 ng/mL (0.000-0.055) Total Protein 6.7 g/dL (6.4-8.2) Albumin 3.1 g/dL (3.4-5.0) Albumin/Globulin Ratio 0.9 (1.0-1.7) Ethyl Alcohol Level < 10 mg/dL (0-10) Triglycerides Level 80 mg/dL (0-150) Cholesterol Level 116 mg/dL (0-200) LDL Cholesterol, Calculated 55 mg/dL (0-100) VLDL Cholesterol, Calculated 16 mg/dL (0-40) Non-HDL Cholesterol Calculated 71 mg/dL (0-129) HDL Cholesterol 45 mg/dL (40-60) Cholesterol/HDL Ratio 2.6 Glucose (Fingerstick) 441 mg/dL (70-99) Prothrombin Time 12.3 SEC (11.7-14.0) Prothromb Time International Ratio 0.9 (0.8-1.1) Activated Partial Thromboplast Time 29 SEC (24-38) Test 09/19/20 06:20 09/19/20 07:22 09/19/20 12:05 09/19/20 12:30 Troponin I Quantitative < 0.017 ng/mL (0.000-0.055) < 0.017 ng/mL (0.000-0.055) Glucose (Fingerstick) 223 mg/dL (70-99) 268 mg/dL (70-99) Laboratory Tests Test 09/19/20 01:20 09/19/20 01:30 09/19/20 01:32 09/19/20 02:10 White Blood Count 5.9 x10^3/uL (4.0-11.0) Red Blood Count 4.79 x10^6/uL (4.30-5.70) Hemoglobin 12.9 g/dL (13.0-17.5) Hematocrit 39.4 % (39.0-53.0) Mean Corpuscular Volume 82 fL (79-100) Mean Corpuscular Hemoglobin 27 pg (25-35) Mean Corpuscular Hemoglobin Concent 33 g/dL (31-37) Red Cell Distribution Width 16.1 % (11.5-14.5) Platelet Count 151 x10^3/uL (140-400) Neutrophils (%) (Auto) 58 % (31-73) Lymphocytes (%) (Auto) 32 % (24-48) Monocytes (%) (Auto) 8 % (0-9) Eosinophils (%) (Auto) 2 % (0-3) Basophils (%) (Auto) 0 % (0-3) Neutrophils # (Auto) 3.4 x10^3/uL (1.8-7.7) Lymphocytes # (Auto) 1.9 x10^3/uL (1.0-4.8) Monocytes # (Auto) 0.5 x10^3/uL (0.0-1.1) Eosinophils # (Auto) 0.1 x10^3/uL (0.0-0.7) Basophils # (Auto) 0.0 x10^3/uL (0.0-0.2) Sodium Level 135 mmol/L (136-145) Potassium Level 3.5 mmol/L (3.5-5.1) Chloride Level 98 mmol/L (98-107) Carbon Dioxide Level 25 mmol/L (21-32) Anion Gap 12 (6-14) Blood Urea Nitrogen 22 mg/dL (8-26) Creatinine 2.1 mg/dL (0.7-1.3) Estimated GFR (Cockcroft-Gault) 37.9 BUN/Creatinine Ratio 10 (6-20) Glucose Level 531 mg/dL (70-99) Calcium Level 8.6 mg/dL (8.5-10.1) Total Bilirubin 0.2 mg/dL (0.2-1.0) Aspartate Amino Transf (AST/SGOT) 20 U/L (15-37) Alanine Aminotransferase (ALT/SGPT) 21 U/L (16-63) Alkaline Phosphatase 126 U/L (46-116) Troponin I Quantitative < 0.017 ng/mL (0.000-0.055) Total Protein 6.7 g/dL (6.4-8.2) Albumin 3.1 g/dL (3.4-5.0) Albumin/Globulin Ratio 0.9 (1.0-1.7) Ethyl Alcohol Level < 10 mg/dL (0-10) Triglycerides Level 80 mg/dL (0-150) Cholesterol Level 116 mg/dL (0-200) LDL Cholesterol, Calculated 55 mg/dL (0-100) VLDL Cholesterol, Calculated 16 mg/dL (0-40) Non-HDL Cholesterol Calculated 71 mg/dL (0-129) HDL Cholesterol 45 mg/dL (40-60) Cholesterol/HDL Ratio 2.6 Glucose (Fingerstick) 441 mg/dL (70-99) Prothrombin Time 12.3 SEC (11.7-14.0) Prothromb Time International Ratio 0.9 (0.8-1.1) Activated Partial Thromboplast Time 29 SEC (24-38) Test 09/19/20 06:20 09/19/20 07:22 09/19/20 12:05 09/19/20 12:30 Troponin I Quantitative < 0.017 ng/mL (0.000-0.055) < 0.017 ng/mL (0.000-0.055) Glucose (Fingerstick) 223 mg/dL (70-99) 268 mg/dL (70-99) Assessment/Plan Assessment/Plan Patient has had is a 69-year-old male presenting for stroke evaluation Left hemispheric stroke versus TIA, type 2 diabetes, hypertension, SHABANA, CAD, hypertension, hyperlipidemia, history of VT, history CABG -On day history of slurred speech and right leg numbness which has notably improved already. -Neurology consulted on admission; CT scans unremarkable -Brain MRI pending -Scheduled long-acting and sliding scale insulin ordered for type 2 diabetes we will check an A1c -Home medications ordered as appropriate -Diet ordered -PT OT -DVT prophylaxis Justifications for Admission Other Justification AIDA CAIN MD Sep 19, 2020 15:37
[2020-09-19] MEDS ORDERED: CETIRIZINE HCL 10 MG TABLET. PO PRN (15:45)
--- NOTE | 2020-09-19 16:39 | RAD ---
MRI of the brain without contrast 09/19/2020 Clinical History: Slurred speech.. Technique: Unenhanced T1-weighted sagittal and axial, T2-weighted axial and coronal and FLAIR, gradie nt echo and diffusion-weighted axial images of the brain were obtained. Findings: Comparison is made to the patient's CT scan of the head performed earlier today. There is generalized parenchymal atrophy. Patchy, confluent and multiple small focal areas of increas ed signal intensity are seen within the periventricular and subcortical white matter of both cerebral hemispheres along with the jatinder on the FLAIR and T2-weighted images consistent with areas of small v essel ischemic disease. Old areas of infarction are seen involving both cerebral hemispheres. These m easure 3 to 8 mm in size. No acute parenchymal abnormality is seen. There is no MRI evidence of acute ischemia/infarction. No extra-axial fluid collection is seen. Mild mucosal thickening is seen scattered throughout the paranasal sinuses. There are minimal bilater al mastoid effusions. Normal flow voids are seen within the major vascular structures surrounding the brain parenchyma. IMPRESSION: No acute parenchymal abnormality is seen. Electronically signed by: Jose J Collazo MD (09/19/2020 4:37 PM) [place] [id number]
[2020-09-19] MEDS: PANTOPRAZOLE 40 MG TABLET.DR. PO SCH (17:37)
[2020-09-19] MEDS: ALLOPURINOL 100 MG TABLET. PO SCH (17:37)
[2020-09-19] MEDS: CHOLECALCIFEROL (VITAMIN D3) 1,000 UNIT TABLET PO SCH (17:38)
[2020-09-19] MEDS: ASPIRIN CHEWABLE 81 MG TABLET. PO SCH (17:38)
[2020-09-19] MEDS: FUROSEMIDE 20 MG TABLET PO SCH (17:38)
[2020-09-19] MEDS: CLOPIDOGREL BISULFATE 75 MG TABLET PO SCH (17:40)
[2020-09-19] MEDS: HEPARIN for SUB-Q USE 5,000 UNIT/ML VIAL. SQ SCH ×2 (17:45→22:34)
[2020-09-19 18:15] VITALS: BP 148/87
[2020-09-19] MEDS ORDERED: METOPROLOL TART IMMED RELEASE 25 MG TABLET. PO SCH (21:00)
[2020-09-19] MEDS ORDERED: rOPINIRole 0.25 MG TABLET. PO SCH (21:00)
[2020-09-19] MEDS ORDERED: TAMSULOSIN 0.4 MG CAP.ER.24H. PO SCH (21:00)
[2020-09-19] MEDS ORDERED: INSULIN GLARGINE SYRINGE. SQ SCH (21:00)
[2020-09-19] MEDS ORDERED: ATORVASTATIN CALCIUM 40 MG TABLET. PO SCH (21:00)
[2020-09-19 23:00] VITALS: BP 142/80
[2020-09-20 02:22] VITALS: BP 131/82
[2020-09-20] MEDS: HEPARIN for SUB-Q USE 5,000 UNIT/ML VIAL. SQ SCH (05:43)
[2020-09-20 06:18] VITALS: BP 147/92
--- NOTE | 2020-09-20 07:18 | PDOC ---
[employer] PROGRESS NOTE Date of Service DOS: DATE: 09/20/20 TIME: 07:16 Chief Complaint Chief Complaint A/P: Slurred speech - likely TIA, MRI ruled out acute CVA. Left hemispheric stroke versus TIA - ruled out, likely hyperglycemia related Type 2 diabetes - Sliding scale and lantus at home Hypertension - Cont home meds SHABANA - hold lisinopril CAD w/ PMHx CABG, stable Hyperlipidemia - statin Right lateral ankle wound - outpatient wound care through the [facility] History of Present Illness History of Present Illness Patient is 69-year-old male w/ PMHx type 2 diabetes, hyperlipidemia, hypertension, history of [place], CAD with history of CABG who presented overnight due to slurred speech and right leg numbness. Patient reports he had been feeling dizzy for a few days and when he awoke this morning noticed he was having difficulty speaking and was told he was slurring his words. He also notices right leg was numb and difficulty ambulating. Other than this he is not having any other symptoms including no headaches, no vision change, no upper extremity weakness, no left-sided weakness, no loss of bowel or bladder function no hearing changes, no confusion. Patient does have a history of diabetes is relatively uncontrolled sugar on admission greater than 400. After admission and was home was able to evaluate the patient his speech had returned essentially to normal and is not having as much weakness in his leg however was still numb. Neurology consulted. Consults: Neurology Slurred speech and right-sided weakness resolved. MRI negative for acute CVA. Glucose improved. Wound care for his right lateral ankle. Advised to hold his lisinopril antihypertensives continue his home insulin. He notes he has had some indiscretions recently due to family stressors and will continue to monitor his blood sugar and follow-up outpatient with the [facility] and have home wound care for his right lateral ankle Vitals/I&O Vitals/I&O: Vital Signs Date Time Temp Pulse Resp B/P (MAP) Pulse Ox O2 Delivery O2 Flow Rate FiO2 09/20/20 06:18 98.9 89 20 147/92 (110) 95 Room Air 98.9 I & O 09/19/20 09/19/20 09/20/20 15:00 23:00 07:00 Intake Total 200 ml 0 ml Output Total 300 ml 600 ml Balance -100 ml -600 ml Physical Exam Lungs: Clear Labs Labs: Laboratory Tests Test 09/19/20 07:22 09/19/20 12:05 09/19/20 12:30 09/19/20 16:54 Glucose (Fingerstick) 223 mg/dL (70-99) 268 mg/dL (70-99) 239 mg/dL (70-99) Troponin I Quantitative < 0.017 ng/mL (0.000-0.055) Test 09/19/20 20:42 09/20/20 06:58 Glucose (Fingerstick) 105 mg/dL (70-99) 202 mg/dL (70-99) Assessment and Plan Assessmemt and Plan Problems Medical Problems: (1) CVA (cerebral vascular accident) Status: Acute (2) Hyperglycemia Status: Acute (3) Slurred speech Status: Acute Comment Review of Relevant I have reviewed the following items galo (where applicable) has been applied. Medications: Current Medications Medications (Trade) Dose Ordered Sig/Laurie Route PRN Reason Start Time Stop Time Status Last Admin Dose Admin Lorazepam (Ativan Inj) 1 mg 1X ONCE IVP 09/19/20 11:45 09/19/20 11:46 DC 09/19/20 12:54 Insulin Human Lispro (HumaLOG) 0-7 UNITS TIDWMEALS SQ 09/19/20 12:00 09/19/20 17:46 Insulin Glargine (Lantus Syringe) 10 unit QHS SQ 09/19/20 21:00 09/19/20 22:35 Allopurinol (Zyloprim) 100 mg DAILY PO 09/19/20 16:00 09/19/20 17:37 Amlodipine Besylate (Norvasc) 10 mg DAILY PO 09/19/20 16:00 09/19/20 17:38 Aspirin (Aspirin Chewable) 81 mg DAILY PO 09/19/20 16:00 09/19/20 17:38 Atorvastatin Calcium (Lipitor) 40 mg QHS PO 09/19/20 21:00 09/19/20 22:27 Vitamin D (Vitamin D3) 1,000 unit DAILY PO 09/19/20 16:00 09/19/20 17:38 Clopidogrel Bisulfate (Plavix) 75 mg DAILY PO 09/19/20 16:00 09/19/20 17:40 Furosemide (Lasix) 20 mg DAILY PO 09/19/20 16:00 09/19/20 17:38 Metoprolol Tartrate (Lopressor) 25 mg HS PO 09/19/20 21:00 09/19/20 22:27 Pantoprazole Sodium (Protonix) 40 mg DAILYAC PO 09/19/20 16:00 09/19/20 17:37 Tamsulosin HCl (Flomax) 0.4 mg HS PO 09/19/20 21:00 09/19/20 22:26 Cetirizine HCl (ZyrTEC) 10 mg PRN DAILY PRN PO ALLERGIES 09/19/20 15:45 09/19/20 22:27 Ropinirole HCl (Requip) 0.5 mg HS PO 09/19/20 21:00 09/19/20 22:26 Insulin Human Lispro (HumaLOG) 10 units TIDWMEALS SQ 09/19/20 17:00 09/19/20 17:46 Heparin Sodium (Porcine) (Heparin Sodium) 5,000 unit Q8HRS SQ 09/19/20 16:00 09/20/20 05:43 Justifications for Admission Other Justification AIDA POLANCO MD Sep 20, 2020 07:18
[2020-09-20] MEDS: CLOPIDOGREL BISULFATE 75 MG TABLET PO SCH (08:38)
[2020-09-20] MEDS: ASPIRIN CHEWABLE 81 MG TABLET. PO SCH (08:38)
[2020-09-20] MEDS: CHOLECALCIFEROL (VITAMIN D3) 1,000 UNIT TABLET PO SCH (08:38)
[2020-09-20] MEDS: ALLOPURINOL 100 MG TABLET. PO SCH (08:38)
[2020-09-20] MEDS: PANTOPRAZOLE 40 MG TABLET.DR. PO SCH (08:39)
[2020-09-20] MEDS: FUROSEMIDE 20 MG TABLET PO SCH (08:39)
[2020-09-20] MEDS: INSULIN LISPRO 300 UNITS/3 ML VIAL. SQ SCH ×4 (08:59→12:00)
[2020-09-20 10:46] VITALS: BP 192/106
--- NOTE | 2020-09-20 10:52 | NUR ---
SS following for discharge planning. SS reviewed pt chart and discussed with pt RN. Pt is from home with spouse and is currently on room air. PT/OT/ST ordered. Neurology following. Pt on PO diet. PT recommended home independent. [facility] Discharge plan is to home when medically ready. SS will continue to follow for discharge planning.
[2020-09-20] MEDS ORDERED: INSU100V13 SQ (10:57)
--- NOTE | 2020-09-20 11:06 | PDOC3 ---
Discharge Summary Visit Information Date of Admission: Sep 19, 2020 Date of Discharge: Sep 20, 2020 Admitting Diagnosis: Slurred speech, right sided weakness Final Diagnosis Problems Medical Problems: (1) CVA (cerebral vascular accident) Status: Acute (2) Hyperglycemia Status: Acute (3) Slurred speech Status: Acute Brief Hospital Course Allergies Allergies Coded Allergies Type Severity Reaction Last Updated Verified No Known Drug Allergies 04/27/19 No Vital Signs Vital Signs Date Time Temp Pulse Resp B/P (MAP) Pulse Ox O2 Delivery O2 Flow Rate FiO2 09/20/20 10:46 98.1 99 20 192/106 (134) 97 Room Air 98.1 Lab Results Laboratory Tests Test 09/19/20 01:20 09/19/20 01:30 09/19/20 01:32 09/19/20 02:10 White Blood Count 5.9 x10^3/uL (4.0-11.0) Red Blood Count 4.79 x10^6/uL (4.30-5.70) Hemoglobin 12.9 g/dL (13.0-17.5) Hematocrit 39.4 % (39.0-53.0) Mean Corpuscular Volume 82 fL (79-100) Mean Corpuscular Hemoglobin 27 pg (25-35) Mean Corpuscular Hemoglobin Concent 33 g/dL (31-37) Red Cell Distribution Width 16.1 % (11.5-14.5) Platelet Count 151 x10^3/uL (140-400) Neutrophils (%) (Auto) 58 % (31-73) Lymphocytes (%) (Auto) 32 % (24-48) Monocytes (%) (Auto) 8 % (0-9) Eosinophils (%) (Auto) 2 % (0-3) Basophils (%) (Auto) 0 % (0-3) Neutrophils # (Auto) 3.4 x10^3/uL (1.8-7.7) Lymphocytes # (Auto) 1.9 x10^3/uL (1.0-4.8) Monocytes # (Auto) 0.5 x10^3/uL (0.0-1.1) Eosinophils # (Auto) 0.1 x10^3/uL (0.0-0.7) Basophils # (Auto) 0.0 x10^3/uL (0.0-0.2) Sodium Level 135 mmol/L (136-145) Potassium Level 3.5 mmol/L (3.5-5.1) Chloride Level 98 mmol/L (98-107) Carbon Dioxide Level 25 mmol/L (21-32) Anion Gap 12 (6-14) Blood Urea Nitrogen 22 mg/dL (8-26) Creatinine 2.1 mg/dL (0.7-1.3) Estimated GFR (Cockcroft-Gault) 37.9 BUN/Creatinine Ratio 10 (6-20) Glucose Level 531 mg/dL (70-99) Calcium Level 8.6 mg/dL (8.5-10.1) Total Bilirubin 0.2 mg/dL (0.2-1.0) Aspartate Amino Transf (AST/SGOT) 20 U/L (15-37) Alanine Aminotransferase (ALT/SGPT) 21 U/L (16-63) Alkaline Phosphatase 126 U/L (46-116) Troponin I Quantitative < 0.017 ng/mL (0.000-0.055) Total Protein 6.7 g/dL (6.4-8.2) Albumin 3.1 g/dL (3.4-5.0) Albumin/Globulin Ratio 0.9 (1.0-1.7) Ethyl Alcohol Level < 10 mg/dL (0-10) Triglycerides Level 80 mg/dL (0-150) Cholesterol Level 116 mg/dL (0-200) LDL Cholesterol, Calculated 55 mg/dL (0-100) VLDL Cholesterol, Calculated 16 mg/dL (0-40) Non-HDL Cholesterol Calculated 71 mg/dL (0-129) HDL Cholesterol 45 mg/dL (40-60) Cholesterol/HDL Ratio 2.6 Glucose (Fingerstick) 441 mg/dL (70-99) Prothrombin Time 12.3 SEC (11.7-14.0) Prothromb Time International Ratio 0.9 (0.8-1.1) Activated Partial Thromboplast Time 29 SEC (24-38) Test 09/19/20 06:20 09/19/20 07:22 09/19/20 12:05 09/19/20 12:30 Troponin I Quantitative < 0.017 ng/mL (0.000-0.055) < 0.017 ng/mL (0.000-0.055) Glucose (Fingerstick) 223 mg/dL (70-99) 268 mg/dL (70-99) Test 09/19/20 16:54 09/19/20 20:42 09/20/20 06:58 Glucose (Fingerstick) 239 mg/dL (70-99) 105 mg/dL (70-99) 202 mg/dL (70-99) Laboratory Tests Test 09/19/20 12:05 09/19/20 12:30 09/19/20 16:54 09/19/20 20:42 Glucose (Fingerstick) 268 mg/dL (70-99) 239 mg/dL (70-99) 105 mg/dL (70-99) Troponin I Quantitative < 0.017 ng/mL (0.000-0.055) Test 09/20/20 06:58 Glucose (Fingerstick) 202 mg/dL (70-99) Brief Hospital Course Patient is 69-year-old male w/ PMHx type 2 diabetes, hyperlipidemia, hypertension, history of [place], CAD with history of CABG who presented overnight due to slurred speech and right leg numbness. Patient reports he had been feeling dizzy for a few days and when he awoke this morning noticed he was having difficulty speaking and was told he was slurring his words. He also notices right leg was numb and difficulty ambulating. Other than this he is not having any other symptoms including no headaches, no vision change, no upper extremity weakness, no left-sided weakness, no loss of bowel or bladder function no hearing changes, no confusion. Patient does have a history of diabetes is relatively uncontrolled sugar on admission greater than 400. After admission and was home was able to evaluate the patient his speech had returned essentially to normal and is not having as much weakness in his leg however was still numb. Neurology consulted. Consults: Neurology Slurred speech and right-sided weakness resolved. MRI negative for acute CVA. Glucose improved. Wound care for his right lateral ankle. Advised to hold his lisinopril antihypertensives continue his home insulin. He notes he has had some indiscretions recently due to family stressors and will continue to monitor his blood sugar and [facility] have [facility] wound care for his right lateral ankle Problem list: Slurred speech - likely TIA, MRI ruled out acute CVA. Left hemispheric stroke versus TIA - ruled out, likely hyperglycemia related Type 2 diabetes - Sliding scale and lantus at home Hypertension - Cont home meds SHABANA - hold lisinopril CAD w/ PMHx CABG, stable Hyperlipidemia - statin Right lateral ankle wound - outpatient wound care through the [facility] Greater than 30 minutes spent on d/c home with outpatient [facility] home health Discharge Information Condition at Discharge: Improved Follow Up: Weeks (1) Disposition/Orders: D/C to Home w/ HH Scheduled Allopurinol (Allopurinol) 100 Mg Tablet, 1 TAB PO DAILY for gout, #30 Ref 5 (Reported) Entered as Reported by: KAREN BULLARD on 09/21/18143 Last Action: Continued on 09/19/20 152 by AIDA CAIN MD Amlodipine Besylate (Amlodipine Besylate) 10 Mg Tablet, 10 MG PO DAILY for htn, (Reported) Entered as Reported by: KAREN BULLARD on 09/21/18143 Last Action: Continued on 09/19/20 1523 by AIDA CAIN MD Aspirin (Aspirin) 81 Mg Tab.chew, 1 TAB PO DAILY for thinner, #30 Ref 3 (Reported) Entered as Reported by: KAREN BULLARD on 09/21/18143 Last Action: Continued on 09/19/20 1523 by AIDA CAIN MD Atorvastatin Calcium (Atorvastatin Calcium) 40 Mg Tablet, 1 TAB PO QHS for cholesterol, #90 Ref 3 (Reported) Entered as Reported by: KAREN BULLARD on 09/21/18143 Last Action: Continued on 09/19/20 1523 by AIDA CAIN MD Cholecalciferol (Vitamin D3) (Vitamin D3) 1,000 Unit Tablet, 1 TAB PO DAILY for replacement, #30 Ref 5 (Reported) Entered as Reported by: KAREN BULLARD on 09/21/18143 Last Action: Continued on 09/19/20 1523 by AIDA CAIN MD Clopidogrel Bisulfate (Clopidogrel) 75 Mg Tablet, 1 TAB PO DAILY for thinner, #90 Ref 1 (Reported) Entered as Reported by: KAREN BULLARD on 09/21/18143 Last Action: Continued on 09/19/20 1523 by AIDA CAIN MD Furosemide (Furosemide) 20 Mg Tablet, 20 MG PO DAILY for diuretic, (Reported) Entered as Reported by: KAREN BULLARD on 09/21/18143 Last Action: Continued on 09/19/20 152 by AIDA CAIN MD Hydralazine Hcl (Hydralazine Hcl) 50 Mg Tablet, 50 MG PO QID for htn, (Reported) Entered as Reported by: KAREN BULLARD on 09/21/18143 Last Action: HELD on 09/19/20 152 by AIDA CAIN MD Insulin Aspart (Novolog) 100 Unit/1 Ml Cartridge, 10 UNIT SQ TIDWMEALS for DM, (Reported) Entered as Reported by: FILI FRANKEL RN on 11/11/18 1549 Last Action: HELD on 09/19/20 152 by AIDA CAIN MD Insulin Detemir (Levemir) 100 Unit/1 Ml Vial, 22 UNIT SQ HS for DM for 30 Days, #30 Prescribed by: AIDA POLANCO MD on 09/20/20 1057 Metoprolol Tartrate (Metoprolol Tartrate) 25 Mg Tablet, 25 MG PO HS for FOR HYPERTENSION, #60 Ref 0 (Reported) Entered as Reported by: KAREN BULLARD on 09/21/18143 Last Action: Continued on 09/19/201522 by AIDA CAIN MD Pantoprazole Sodium (Pantoprazole Sodium ) 40 Mg Tablet.dr, 40 MG PO DAILYAC for gerd, #30 Prescribed by: MICHAEL QUACH on 02/09/19 1234 Last Action: Continued on 09/19/201522 by AIDA CAIN MD Ropinirole Hcl (Ropinirole Hcl) 0.5 Mg Tablet, 0.5 MG PO HS for RLS, (Reported) Entered as Reported by: KAREN BULLARD on 09/21/18143 Last Action: Converted on 09/19/201522 by AIDA CAIN MD Tamsulosin Hcl (Flomax) 0.4 Mg Cap.er.24h, 0.4 MG PO HS for retention, (Reported) Entered as Reported by: KAREN BULLARD on 09/21/18143 Last Action: Continued on 09/19/201522 by AIDA CAIN MD Scheduled PRN Loratadine (Loratadine) 10 Mg Tablet, 1 TAB PO PRN DAILY PRN for gerd, #30 Ref 5 (Reported) Entered as Reported by: KAREN BULLARD on 09/21/18143 Last Action: Converted on 09/19/201522 by AIDA CAIN MD Discontinued Medications Clonidine Hcl (Clonidine Hcl) 0.3 Mg Tablet, 2 TAB PO BID for htn, #30 (Reported) Entered as Reported by: KAREN BULLARD on 09/21/18143 Last Action: HELD on 09/19/201522 by AIDA CAIN MD Daptomycin (Daptomycin) 350 Mg Vial, 590 MG IV DAILY for infection, #10 Prescribed by: MICHAEL QUACH on 02/09/19 1234 Last Action: HELD on 09/19/201522 by AIDA CAIN MD Hydrocodone Bit/Acetaminophen (Hydrocodone-Apap 5-325 ) 1 Tab Tablet, 1 TAB PO PRN Q6HRS PRN for PAIN for 3 Days, #12 Ref 0 Prescribed by: HERNAN GALARZA APRN on 11/27/182008 Last Action: HELD on 09/19/201522 by AIDA CAIN MD Hydrocodone Bit/Acetaminophen (Hydrocodone-Apap 5-325 ) 1 Tab Tablet, 0.5-1 TAB PO PRN Q6HRS PRN for SEVERE PAIN 7-10 for 3 Days, #10 Ref 0 Prescribed by: HERNAN GALARZA APRN on 05/04/201543 Last Action: HELD on 09/19/201522 by AIDA CAIN MD Lisinopril (Lisinopril) 40 Mg Tablet, 1 TAB PO DAILY for htn, #30 Ref 5 (Reported) Entered as Reported by: KAREN BULLARD on 09/21/18143 Last Action: HELD on 09/19/201522 by AIDA CAIN MD Meloxicam (Meloxicam) 15 Mg Tablet, 1 TAB PO PRN DAILY PRN for INFLAMMATION, #30 Ref 2 (Reported) Entered as Reported by: KAREN BULLARD on 09/21/18143 Last Action: HELD on 09/19/201522 by AIDA CAIN MD Justicifation of Admission Dx: Justifications for Admission: Justification of Admission Dx: Yes AIDA POLANCO MD Sep 20, 2020 11:06
--- NOTE | 2020-09-20 12:02 | NUR ---
HUMALOG NON-ADMINISTERED DUE TO PT BEING DISCHARGED.
--- NOTE | 2020-09-20 12:09 | PDOC ---
PROGRESS NOTES Date of Service DATE: 09/20/20 TIME: 12:06 Assessment Problems Medical Problems: (1) CVA (cerebral vascular accident) Status: Acute (2) Hyperglycemia Status: Acute (3) Slurred speech Status: Acute He is back to his baseline. He is able to sit and walk with good balance. He does not complain of heaviness of the right side. The blood sugars have returned back to normal. The neurologic deficit may have been related to the markedly elevated blood sugars. I am relieved the MRI of the brain did not reveal any acute process. He does have extensive chronic small vessel disease from his uncontrolled diabetes. Plan He may be dismissed from a neurologic perspective. We discussed the importance of monitoring his blood sugars and following a diabetic diet. He needs to stay active and not be sedentary. He states he is very active cleaning his house, cooking and moving around. I discussed with Dr. Leong. Subjective I feel back to my usual self. I am ready to go home. Objective Vital Signs Date Time Temp Pulse Resp B/P (MAP) Pulse Ox O2 Delivery O2 Flow Rate FiO2 09/20/20 10:46 98.1 99 20 192/106 (134) 97 Room Air 98.1 Intake and Output 09/20/20 06:59 Intake Total 200 ml Output Total 900 ml Balance -700 ml Intake Oral 200 ml Output Urine Total 900 ml # Voids 2 # Bowel Movements 1 PHYSICAL EXAM He was alert, awake and cooperative. Speech was fluent and clear. He had a good fund of recent and remote knowledge. Attention and concentration was intact. He appeared well-groomed and well-nourished. The eyes were conjugate and face symmetric. Movements were symmetric and well coordinated. Review of Relevant I have reviewed the following items galo (where applicable) has been applied. Labs Laboratory Tests Test 09/19/20 01:20 09/19/20 01:30 09/19/20 01:32 09/19/20 02:10 White Blood Count 5.9 x10^3/uL (4.0-11.0) Red Blood Count 4.79 x10^6/uL (4.30-5.70) Hemoglobin 12.9 g/dL (13.0-17.5) Hematocrit 39.4 % (39.0-53.0) Mean Corpuscular Volume 82 fL (79-100) Mean Corpuscular Hemoglobin 27 pg (25-35) Mean Corpuscular Hemoglobin Concent 33 g/dL (31-37) Red Cell Distribution Width 16.1 % (11.5-14.5) Platelet Count 151 x10^3/uL (140-400) Neutrophils (%) (Auto) 58 % (31-73) Lymphocytes (%) (Auto) 32 % (24-48) Monocytes (%) (Auto) 8 % (0-9) Eosinophils (%) (Auto) 2 % (0-3) Basophils (%) (Auto) 0 % (0-3) Neutrophils # (Auto) 3.4 x10^3/uL (1.8-7.7) Lymphocytes # (Auto) 1.9 x10^3/uL (1.0-4.8) Monocytes # (Auto) 0.5 x10^3/uL (0.0-1.1) Eosinophils # (Auto) 0.1 x10^3/uL (0.0-0.7) Basophils # (Auto) 0.0 x10^3/uL (0.0-0.2) Sodium Level 135 mmol/L (136-145) Potassium Level 3.5 mmol/L (3.5-5.1) Chloride Level 98 mmol/L (98-107) Carbon Dioxide Level 25 mmol/L (21-32) Anion Gap 12 (6-14) Blood Urea Nitrogen 22 mg/dL (8-26) Creatinine 2.1 mg/dL (0.7-1.3) Estimated GFR (Cockcroft-Gault) 37.9 BUN/Creatinine Ratio 10 (6-20) Glucose Level 531 mg/dL (70-99) Calcium Level 8.6 mg/dL (8.5-10.1) Total Bilirubin 0.2 mg/dL (0.2-1.0) Aspartate Amino Transf (AST/SGOT) 20 U/L (15-37) Alanine Aminotransferase (ALT/SGPT) 21 U/L (16-63) Alkaline Phosphatase 126 U/L (46-116) Troponin I Quantitative < 0.017 ng/mL (0.000-0.055) Total Protein 6.7 g/dL (6.4-8.2) Albumin 3.1 g/dL (3.4-5.0) Albumin/Globulin Ratio 0.9 (1.0-1.7) Ethyl Alcohol Level < 10 mg/dL (0-10) Triglycerides Level 80 mg/dL (0-150) Cholesterol Level 116 mg/dL (0-200) LDL Cholesterol, Calculated 55 mg/dL (0-100) VLDL Cholesterol, Calculated 16 mg/dL (0-40) Non-HDL Cholesterol Calculated 71 mg/dL (0-129) HDL Cholesterol 45 mg/dL (40-60) Cholesterol/HDL Ratio 2.6 Glucose (Fingerstick) 441 mg/dL (70-99) Prothrombin Time 12.3 SEC (11.7-14.0) Prothromb Time International Ratio 0.9 (0.8-1.1) Activated Partial Thromboplast Time 29 SEC (24-38) Test 09/19/20 06:20 09/19/20 07:22 09/19/20 12:05 09/19/20 12:30 Troponin I Quantitative < 0.017 ng/mL (0.000-0.055) < 0.017 ng/mL (0.000-0.055) Glucose (Fingerstick) 223 mg/dL (70-99) 268 mg/dL (70-99) Test 09/19/20 16:54 09/19/20 20:42 09/20/20 06:58 09/20/20 11:11 Glucose (Fingerstick) 239 mg/dL (70-99) 105 mg/dL (70-99) 202 mg/dL (70-99) 89 mg/dL (70-99) Laboratory Tests Test 09/19/20 12:30 09/19/20 16:54 09/19/20 20:42 09/20/20 06:58 Troponin I Quantitative < 0.017 ng/mL (0.000-0.055) Glucose (Fingerstick) 239 mg/dL (70-99) 105 mg/dL (70-99) 202 mg/dL (70-99) Test 09/20/20 11:11 Glucose (Fingerstick) 89 mg/dL (70-99) Medications Current Medications Iohexol (Omnipaque 350 Mg/ml) 75 ml 1X ONCE IV ; Start 09/19/20 at 01:30; Stop 09/19/20 at 01:32; Status DC Info (CONTRAST GIVEN -- Rx MONITORING) 1 each PRN DAILY PRN MC SEE COMMENTS; Start 09/19/20 at 01:45; Stop 09/21/20 at 01:44 Insulin Human Regular (HumuLIN R VIAL) 10 unit 1X ONCE SQ Last administered on 09/19/20at 03:10; Start 09/19/20 at 03:00; Stop 09/19/20 at 03:01; Status DC Ondansetron HCl (Zofran) 4 mg PRN Q8HRS PRN IV NAUSEA/VOMITING; Start 09/19/20 at 03:00; Stop 09/20/20 at 02:59; Status DC Sodium Chloride 1,000 ml @ 75 mls/hr [id number] IV Last administered on 09/19/20at 17:47; Start 09/19/20 at 03:00; Stop 09/20/20 at 02:59; Status DC Lorazepam (Ativan Inj) 1 mg 1X ONCE IVP Last administered on 09/19/20at 12:54; Start 09/19/20 at 11:45; Stop 09/19/20 at 11:46; Status DC Insulin Human Lispro (HumaLOG) 0-7 UNITS TIDWMEALS SQ Last administered on 09/20/20at 08:59; Start 09/19/20 at 12:00 Dextrose (Dextrose 50%-Water Syringe) 12.5 gm PRN Q15MIN PRN IV SEE COMMENTS; Start 09/19/20 at 12:00 Insulin Glargine (Lantus Syringe) 10 unit QHS SQ Last administered on 09/19/20at 22:35; Start 09/19/20 at 21:00 Allopurinol (Zyloprim) 100 mg DAILY PO Last administered on 09/20/20at 08:38; Start 09/19/20 at 16:00 Amlodipine Besylate (Norvasc) 10 mg DAILY PO Last administered on 09/20/20at 08:38; Start 09/19/20 at 16:00 Aspirin (Aspirin Chewable) 81 mg DAILY PO Last administered on 09/20/20at 08:38; Start 09/19/20 at 16:00 Atorvastatin Calcium (Lipitor) 40 mg QHS PO Last administered on 09/19/20at 22:27; Start 09/19/20 at 21:00 Vitamin D (Vitamin D3) 1,000 unit DAILY PO Last administered on 09/20/20 08:38; Start 09/19/20 at 16:00 Clopidogrel Bisulfate (Plavix) 75 mg DAILY PO Last administered on 09/20/20 08:38; Start 09/19/20 at 16:00 Furosemide (Lasix) 20 mg DAILY PO Last administered on 09/20/20 08:39; Start 09/19/20 at 16:00 Metoprolol Tartrate (Lopressor) 25 mg HS PO Last administered on 09/19/20 22:27; Start 09/19/20 at 21:00 Pantoprazole Sodium (Protonix) 40 mg DAILYAC PO Last administered on 09/20/20 08:39; Start 09/19/20 at 16:00 Tamsulosin HCl (Flomax) 0.4 mg HS PO Last administered on 09/19/20 22:26; Start 09/19/20 at 21:00 Cetirizine HCl (ZyrTEC) 10 mg PRN DAILY PRN PO ALLERGIES Last administered on 09/19/20 22:27; Start 09/19/20 at 15:45 Ropinirole HCl (Requip) 0.5 mg HS PO Last administered on 09/19/20 22:26; Start 09/19/20 at 21:00 Insulin Human Lispro (HumaLOG) 10 units TIDWMEALS SQ Last administered on 09:00; Start 09/19/20 at 17:00 Heparin Sodium (Porcine) (Heparin Sodium) 5,000 unit Q8HRS SQ Last administered on 09/20/20 05:43; Start 09/19/20 at 16:00 Active Scripts Active Levemir (Insulin Detemir) 100 Unit/1 Ml Vial 22 Unit SQ HS 30 Days Pantoprazole Sodium (Pantoprazole Sodium) 40 Mg Tablet.dr 40 Mg PO DAILYAC Reported Novolog (Insulin Aspart) 100 Unit/1 Ml Cartridge 10 Unit SQ TIDWMEALS Ropinirole Hcl 0.5 Mg Tablet 0.5 Mg PO HS Flomax (Tamsulosin Hcl) 0.4 Mg Cap.er.24h 0.4 Mg PO HS Metoprolol Tartrate 25 Mg Tablet 25 Mg PO HS Loratadine 10 Mg Tablet 1 Tab PO PRN DAILY PRN Hydralazine Hcl 50 Mg Tablet 50 Mg PO QID Furosemide 20 Mg Tablet 20 Mg PO DAILY Clopidogrel (Clopidogrel Bisulfate) 75 Mg Tablet 1 Tab PO DAILY Vitamin D3 (Cholecalciferol (Vitamin D3)) 1,000 Unit Tablet 1 Tab PO DAILY Atorvastatin Calcium 40 Mg Tablet 1 Tab PO QHS Aspirin 81 Mg Tab.chew 1 Tab PO DAILY Allopurinol 100 Mg Tablet 1 Tab PO DAILY Amlodipine Besylate 10 Mg Tablet 10 Mg PO DAILY Vitals/I & O Vital Sign - Last 24 Hours 09/19/20 09/19/20 09/19/20 09/19/20 15:00 17:38 18:15 20:00 Temp 97.8 97.9 97.8 97.9 Pulse 78 78 86 Resp 18 B/P (MAP) 123/72 (89) 118/77 148/87 (107) Pulse Ox 100 100 O2 Delivery Room Air Room Air Room Air 09/19/20 09/19/20 09/19/20 09/20/20 22:27 23:00 23:59 02:22 Temp 98.2 98.5 98.2 98.5 Pulse 86 79 85 Resp 20 B/P (MAP) 148/87 142/80 (100) 131/82 (98) Pulse Ox 100 97 O2 Delivery Room Air Room Air Room Air 09/20/20 09/20/20 09/20/20 09/20/20 06:18 08:00 08:38 10:46 Temp 98.9 98.1 98.9 98.1 Pulse 89 89 99 Resp 20 20 B/P (MAP) 147/92 (110) 147/92 192/106 (134) Pulse Ox 95 97 O2 Delivery Room Air Room Air Room Air Intake and Output 09/19/20 09/19/20 09/20/20 14:59 22:59 06:59 Intake Total 200 ml 0 ml Output Total 300 ml 600 ml Balance -100 ml -600 ml Justicifation of Admission Dx: Justifications for Admission: Justification of Admission Dx: Yes SHAMA TOTH MD Sep 20, 2020 12:09
--- NOTE | 2020-09-20 12:22 | NUR ---
Discharge Note: [facility] Discharge instructions and discharge home medications reviewed with Patient and a copy given. All questions have been answered and understanding verbalized. The following instructions and handouts were given: DIABETES MEAL PLANNING, WOUND CARE Discontinued lines and drains: Peripheral IV intact. Patient discharged to Home w/services with Self via Wheelchair
== END 2020-09-20 12:10 | disposition home health service (06) ==
LOC: ER 01:06 → INTOOBSV 01:47 → 6 SOUTH 01:47 → 2 SOUTH 19:00
PROVIDERS: ADMIT Student in an Organized Health Care Education/Training Program; ATTEND Student in an Organized Health Care Education/Training Program
DX: I63.9 Cerebral infarction, unspecified (principal); E78.00 Pure hypercholesterolemia, unspecified; R42 Dizziness and giddiness; N17.9 Acute kidney failure, unspecified; R47.81 Slurred speech; E78.5 Hyperlipidemia, unspecified; I25.2 Old myocardial infarction; I25.10 Atherosclerotic heart disease of native coronary artery without angina pectoris; R29.701 NIHSS score 1; E11.65 Type 2 diabetes mellitus with hyperglycemia; R53.1 Weakness; R26.2 Difficulty in walking, not elsewhere classified; F17.200 Nicotine dependence, unspecified, uncomplicated; I10 Essential (primary) hypertension; Z90.49 Acquired absence of other specified parts of digestive tract; Z95.1 Presence of aortocoronary bypass graft; Z85.46 Personal history of malignant neoplasm of prostate; Z82.49 Family history of ischemic heart disease and other diseases of the circulatory system; Z86.19 Personal history of other infectious and parasitic diseases
CPT/HCPCS: 36415; 70450; 70496; 70498; 70551; 71045; 80053; 80061; 82962; 84484; 85025; 85610; 85730; 92610; 93005; 96361; 96372; 96374; 97161; 99291; G0378; G0480; J1644; J1815; J2060; J7030; G0379

== ENCOUNTER 2021-01-06 22:27 | Emergency (ER) | payer MEDICARE ==
[~2021-01-06] VITALS: Ht 185.4 cm; Wt 104.5 kg
--- NOTE | 2021-01-06 23:26 | PHYS DOC ---
Past Medical History Past Medical History: CAD, Diabetes-Type II, High Cholesterol, Hypertension, [place] Additional Past Medical Histor: prostate CA, H pylori Past Surgical History: Other Additional Past Surgical Histo: abdominal clamp for H Pylori Smoking Status: Never Smoker Alcohol Use: None Drug Use: None General Adult EDM: Chief Complaint: HYPERGLYCEMIA HPI: HPI: Is Patient is a 70-year-old male presenting for hyperglycemia. This is an acute on chronic issue. He is a known uncontrolled insulin-dependent type 2 diabetic. Reports he was at his primary care physician office this morning and had routine labs drawn call this evening and notified that his sugar was " around 600" and was advised to come into the ER for evaluation. On arrival, patient has no complaints. He admits he has been more hungry than usual with increased fluid intake and increased urination. He states he has been taking all of his medication except for his insulin since October Review of Systems: Review of Systems: Fourteen body systems of review of systems have been reviewed. See HPI for pertinent positives and negative responses, other rodriguez all other systems are negative, non-pertinent or non-contributory Heart Score: C/O Chest Pain: No HEART Score for Chest Pain: HEART Score for Chest Pain Response (Comments) Value History Slighlty/Non-Suspicious 0 ECG Normal 0 Age > 65 2 Risk Factors >3 Risk Factors or Hx CAD 2 Troponin < Normal Limit 0 Total 4 Risk Factors: Risk Factors: DM, Current or recent (<one month) smoker, HTN, HLP, family history of CAD, obesity. Risk Scores: Score 0 - 3: 2.5% MACE over next 6 weeks - Discharge Home Score 4 - 6: 20.3% MACE over next 6 weeks - Admit for Clinical Observation Score 7 - 10: 72.7% MACE over next 6 weeks - Early Invasive Strategies Allergies: Allergies: Allergies Coded Allergies Type Severity Reaction Last Updated Verified No Known Drug Allergies 04/27/19 No Physical Exam: PE: Constitutional: Well developed, well nourished, no acute distress, non-toxic appearance. HENT: Normocephalic, atraumatic, bilateral external ears normal, oropharynx moist, no oral exudates, nose normal. Eyes: PERRLA, EOMI, conjunctiva normal, no discharge. Neck: Normal range of motion, no tenderness, supple, no stridor. Cardiovascular: Heart rate regular, sinus rhythm, no murmurs rubs or gallops Lungs & Thorax: Bilateral breath sounds clear to auscultation Abdomen: Bowel sounds normal, soft, no tenderness, no masses, no pulsatile masses. Nonsurgical abdomen, no peritoneal signs Skin: Warm, dry, no erythema, no rash. Back: No tenderness, no CVA tenderness. Extremities: No tenderness, no cyanosis, no clubbing, ROM intact, no edema. Neurologic: Alert and oriented X 3, grossly normal motor & sensory function, no focal deficits noted. Psychologic: Affect normal, judgement normal, mood normal. Current Patient Data: Labs: Laboratory Tests Test 01/06/21 22:56 01/06/21 23:30 01/06/21 23:40 01/07/21 02:32 Glucose (Fingerstick) 507 mg/dL 329 mg/dL White Blood Count 5.3 x10^3/uL Red Blood Count 5.03 x10^6/uL Hemoglobin 13.4 g/dL Hematocrit 41.1 % Mean Corpuscular Volume 82 fL Mean Corpuscular Hemoglobin 27 pg Mean Corpuscular Hemoglobin Concent 33 g/dL Red Cell Distribution Width 15.1 % Platelet Count 131 x10^3/uL Neutrophils (%) (Auto) 53 % Lymphocytes (%) (Auto) 39 % Monocytes (%) (Auto) 6 % Eosinophils (%) (Auto) 2 % Basophils (%) (Auto) 1 % Neutrophils # (Auto) 2.8 x10^3/uL Lymphocytes # (Auto) 2.0 x10^3/uL Monocytes # (Auto) 0.3 x10^3/uL Eosinophils # (Auto) 0.1 x10^3/uL Basophils # (Auto) 0.0 x10^3/uL Sodium Level 131 mmol/L Potassium Level 3.8 mmol/L Chloride Level 97 mmol/L Carbon Dioxide Level 29 mmol/L Anion Gap 5 Blood Urea Nitrogen 25 mg/dL Creatinine 1.8 mg/dL Estimated GFR (Cockcroft-Gault) 45.1 Glucose Level 536 mg/dL Calcium Level 8.6 mg/dL Troponin I High Sensitivity 22 ng/L Bedside Venous pH 7.40 Bedside Venous pCO2 49 mmHg Bedside Venous pO2 61 mmHg Venous Blood HCO3 30 mmol/L POC Venous O2 Saturation (Hayden) 91 % Bedside FiO2 21.0 Current Medications Medications (Trade) Dose Ordered Sig/Laurie Route PRN Reason Start Time Stop Time Status Last Admin Dose Admin Sodium Chloride 1,000 ml @ 1,000 mls/hr 1X ONCE IV 01/07/21 01:00 01/07/21 01:59 DC 01/07/21 01:15 Insulin Human Regular (HumuLIN R VIAL) 10 unit 1X ONCE IV 01/07/21 01:00 01/07/21 01:01 DC 01/07/21 01:17 Vital Signs: Vital Signs Date Time Temp Pulse Resp B/P (MAP) Pulse Ox O2 Delivery O2 Flow Rate FiO2 01/06/21 22:55 97.9 76 18 133/85 (101) 99 Room Air 97.9 EKG: EKG: EKG ordered and interpreted by myself at 2348 hrs. as sinus rhythm at 75 bpm, unremarkable intervals, no axis deviation, no STEMI Radiology/Procedures: Radiology/Procedures: [] Course & Med Decision Making: Course & Med Decision Making ABCs unremarkable HPI physical exam and comprehensive ER work-up nonconcerning for any emergent or surgical issues Patient hyperglycemic with various electrolyte abnormalities likely due to dehydration. 1 L IV normal saline and 10 units IV insulin administered with improvement in patient's hyperglycemia Patient's anion gap low, low likelihood for DKA, HHS or other potentially ngozi rgent or surgical issues. Patient's condition today once precipitated by lack of compliance with medical regimen. He openly admits he has not been taking his insulin since October. He has no other from concerning complaints such as fever or chest pain requiring admission. Discharge home with PCP follow-up. He has adequate supplies at home such as glucometer with test strips, insulin etc. Keshia Disclaimer: Keshia Disclaimer: This electronic medical record was generated, in whole or in part, using a voice recognition dictation system. Departure Departure Impression: Primary Impression: Hyperglycemia due to type 2 diabetes mellitus Additional Impression: Electrolyte abnormality Disposition: HOME / SELF CARE / HOMELESS Condition: IMPROVED Referrals: UNKNOWN PCP NAME (PCP) Additional Instructions: As discussed prior to ER departure, your vitals, physical exam and comprehensive ER work-up were nonconcerning for any emergent or surgical issues. You are found to be dehydrated and your blood glucose level was high likely due to the fact that you have not been taking your insulin. You need to take this as previously prescribed. You need to call your primary care physician in the morning to review ER visit today and need for close outpatient follow-up. It is imperative you keep tight glucose control due to the various short and long- term side effects of hyperglycemia. You were given IV fluids today and IV insulin which should improve your fluid imbalance and hyperglycemia. Nonetheless, continued effort on your part and close outpatient follow-up and compliance with outpatient primary care physician regimen advised. If any concerning signs or symptoms present prior to outpatient follow-up please do not hesitate to come back for repeat evaluation. It was pleasure to take care of you and I wish you the best going forward ERICA OSUNA DO Jan 06, 2021 23:26
[2021-01-06 23:40] LABS: BASO % 1 % (0-3); EOS # 0.1 x10^3/uL (0.0-0.7); EOS % 2 % (0-3); HEMATOCRIT 41.1 % (39.0-53.0); HEMOGLOBIN 13.4 g/dL (13.0-17.5); LYMPH % 39 % (24-48); MEAN CORPUSCULAR HEMOGLOBIN 27 pg (25-35); MEAN CORPUSCULAR HGB CONC 33 g/dL (31-37); MEAN CORPUSCULAR VOLUME 82 fL (79-100); MONO # 0.3 x10^3/uL (0.0-1.1); MONO % 6 % (0-9); NEUT # 2.8 x10^3/uL (1.8-7.7); NEUT % 53 % (31-73); PLATELET COUNT 131 x10^3/uL (140-400); RED BLOOD COUNT 5.03 x10^6/uL (4.30-5.70); RED CELL DISTRIBUTION WIDTH 15.1 % (11.5-14.5); WHITE BLOOD COUNT 5.3 x10^3/uL (4.0-11.0)
[2021-01-06 23:46] LABS: ISTAT BE VENOUS 5 mmol/L (0-3); ISTAT HCO3 VEN 30 mmol/L (24-28); ISTAT PCO2 VEN 49 mmHg (41-51); ISTAT PO2 VEN 61 mmHg (20-40); ISTAT SAT O2 VEN 91 %; ISTAT TCO2 VEN 32 mmol/L (21-32)
[2021-01-07 00:05] LABS: CALCIUM 8.6 mg/dL (8.5-10.1); CREATININE 1.8 mg/dL (0.7-1.3); GFR 45.1; POTASSIUM 3.8 mmol/L (3.5-5.1)
[2021-01-07] MEDS ORDERED: INSULIN REGULAR 100 UNIT/ML 3ML VIAL. IV ONE (01:00)
[2021-01-07] MEDS ORDERED: IV NORMAL SALINE 1000ML BAG 1,000 ML IV ONE (01:00)
--- NOTE | 2021-01-07 01:33 | EKG ---
[facility] [address] [place] [address] Test Date: 2021-01-06 Test Time: 23:46:21 Pat Name: FALLON MORA Department: Room: Gender: M Employee Representative: : 1950 Requested By: ERICA OSUNA Order Number: [id number] Reading MD: Jimbo Ahn MD Measurements Intervals [place] Rate: 75 P: 49 RI: 190 QRS: 41 QRSD: 100 T: 42 QT: 384 QTc: 431 Interpretive Statements SINUS RHYTHM PAC'S NON-SPECIFIC ST/T CHANGES Electronically Signed On 01-07-2021 9:01:26 DELINEATOR by Jimbo Ahn MD
[2021-01-07 02:43] LABS: BILIRUBIN,URINE NEGATIVE (NEG); CLARITY,URINE CLEAR; COLOR,URINE YELLOW; NITRITE,URINE NEGATIVE (NEG); PROTEIN,URINE NEGATIVE (NEG-TRACE); UROBILINOGEN,URINE 0.2 mg/dL (0.2 mg/dL)
[2021-01-07 02:52] LABS: BACTERIA,URINE 0 /HPF (0-FEW); RBC,URINE 0 /HPF (0-2); WBC,URINE 0 /HPF (0-4); YEAST,URINE PRESENT /HPF
[2021-01-07 03:30] VITALS: BP 151/76
== END 2021-01-07 03:56 | disposition home or self-care (01) ==
LOC: ER 22:27
DX: E11.65 Type 2 diabetes mellitus with hyperglycemia (principal); E87.8 Other disorders of electrolyte and fluid balance, not elsewhere classified; E78.00 Pure hypercholesterolemia, unspecified; I25.10 Atherosclerotic heart disease of native coronary artery without angina pectoris; I25.2 Old myocardial infarction
CPT/HCPCS: 36415; 80048; 81001; 82803; 82962; 84484; 85025; 93005; 96361; 96374; 99285; J1815; J7030

== ENCOUNTER 2021-02-22 19:08 | Emergency (ER) | payer MEDICARE ==
[~2021-02-22] VITALS: Ht 185.4 cm; Wt 100.0 kg
--- NOTE | 2021-02-22 19:23 | PHYS DOC ---
Past Medical History Past Medical History: CAD, Diabetes-Type II, High Cholesterol, Hypertension, [place] Additional Past Medical Histor: prostate CA, H pylori Past Surgical History: Other Additional Past Surgical Histo: abdominal clamp for H Pylori Smoking Status: Never Smoker Alcohol Use: None Drug Use: None General Adult EDM: Chief Complaint: NECK PAIN HPI: HPI: Patient is a 70 year old male brought in by EMS from home for multiple complaints. His main complaint is that he has pain from his body of his neck all the way down to his lower back. The pain is diffuse and nonfocal. He denies headache. He denies any acute trauma or injury. He denies chest pain, dyspnea, dental pain, nausea or vomiting. He denies numbness or tingling or motor weakness. He denies any photophobia, vision changes, denies any true neck stiffness. EMS had reported to us that the family was concerned that he had meningitis. He has not had any fevers or chills. His pain is reproduced with movement and palpation. He was discharged from [facility] yesterday after an 8-day hospitalization for chest pain and back pain issues. Sounds like he had a cardiac catheterization, he still is a dressing in place in his right groin. He also reports that he underwent GI consultation for EGD. He was being given pain medication while he was at , and he reports that he is taking hydrocodone at home. Denies any overdose or taking extra doses of any of his medications. He is on multiple antihypertensives, and he reports that he took all of his regularly prescribed medications. The patient does seem slightly drowsy on arrival, he does have some relative hypotension. He is not tachycardic. He denies dizziness or syncope. He did not want to go back to [facility] because he did not wait too long in the waiting room, he decided to come here instead. Review of Systems: Review of Systems: Constitutional: Denies fever or chills. [] Eyes: Denies change in visual acuity. Denies visual aura or vision loss or photophobia. HENT: Denies nasal congestion or sore throat. [] Respiratory: Denies cough or shortness of breath. [] Cardiovascular: Denies chest pain or edema. [] GI: Denies abdominal pain, nausea, vomiting, or diarrhea. : Denies urinary symptoms. Musculoskeletal: Reports diffuse, non-focal neck pain and back pain. Integument: Healing ulcer of the right lateral lower leg/ankle, present for months, not painful and no changes today. Neurologic: Denies headache, focal weakness or sensory changes. [] Endocrine: Denies polyuria or polydipsia. [] Lymphatic: Denies swollen glands. [] Psychiatric: Denies depression or anxiety. [] Heart Score: C/O Chest Pain: No Risk Factors: Risk Factors: DM, Current or recent (<one month) smoker, HTN, HLP, family history of CAD, obesity. Risk Scores: Score 0 - 3: 2.5% MACE over next 6 weeks - Discharge Home Score 4 - 6: 20.3% MACE over next 6 weeks - Admit for Clinical Observation Score 7 - 10: 72.7% MACE over next 6 weeks - Early Invasive Strategies Allergies: Allergies: Allergies Coded Allergies Type Severity Reaction Last Updated Verified No Known Drug Allergies 04/27/19 No Physical Exam: PE: Constitutional: Well developed, well nourished, no acute distress, non-toxic appearance. [] HENT: Normocephalic, atraumatic, oropharynx is patent and clear, mucous membranes are moist. TMs are clear bilaterally Eyes: Pupils are small, equal, round and reactive to light, extraocular muscles intact. No scleral icterus. Conjunctive are clear Neck: Trachea is midline. No deformity. No meningismus is noted. Diffuse paraspinal bilateral soft tissue cervical spine tenderness, painful active and passive range of motion with rotation and sidebending bilaterally. No JVD. No palpable deformity or crepitus or step-offs. Cardiovascular:Heart rate regular rhythm, +2 radial pulses bilaterally, symmetric and palpable bilateral dorsalis pedis pulses Lungs & Thorax: Bilateral breath sounds clear to auscultation, no rales, rhonchi or wheezes. Abdomen: Abdomen soft, obese, nondistended, nontender to palpation. No palpable pulsatile mass organomegaly noted. Skin: Warm, dry. He has a dressing in place on a healing ulcer of his right l ateral ankle area. There is no warmth erythema or tenderness. He has a dressing in place in his right groin from his recent cardiac catheterization, there is no surrounding warmth erythema or tenderness or swelling noted. Back: No deformity is noted. He is wearing multiple Lidoderm patches on his back. He has diffuse and nonfocal bilateral soft tissue tenderness of his entire thoracic and lumbar spine. No palpable deformities or midline tenderness or step-off noted. Range of motion is slightly limited with flexion secondary to pain reproduced with movement, rotation, flexion, extension and sidebending. Extremities: No tenderness, pelvis is stable. No calf tenderness. There is symmetric, 1+ nonpitting lower extremity edema. There is a healing ulcer of his right lateral ankle, as detailed above in skin exam. This is nontender, without evidence of warmth or erythema or swelling or tenderness or drainage. Neurologic: Patient is slightly drowsy, has his eyes closed for most of the H&P, he awakens to voice, opens eyes to voice, follows all commands. Cranial nerves II through XII are grossly intact. 5 out of 5 motor strength all 4 extremities. Sensation is grossly intact. Speech is relatively slurred. Psychologic: Affect is slightly flat, he is cooperative and overall pleasant. [] EKG: EKG: EKG is interpreted at 1934 Rhythm is sinus bradycardia Rate is 58 bpm Elizabeth is normal No STEMI Radiology/Procedures: Radiology/Procedures: [] Course & Med Decision Making: Course & Med Decision Making Pertinent Labs and Imaging studies reviewed. (See chart for details) Patient is given 2 L of IV fluids. His blood pressure is stable. He requested something for pain. He is given intramuscular Norflex. He has been resting comfortably, manifesting no evidence of distress since then. He is afebrile, vital signs are all stable. He manifests no evidence of meningismus or obvious infectious process at this time, based on current presentation. He does have a history of renal insufficiency, which appears to be slightly worse on labs today, though he is unsure what his labs showed when he was at [facility] this last week. Creatinine does not appear to be improved after being given fluids. He is unsure if he was given diuretics during his hospital course. Were never able to receive records from , despite requesting them. The patient feels comfortable to plan for discharge home. I discussed all of the findings, differential diagnosis and plan of care with the patient as well as with his sister, who lives with him and will take him home. I recommended he contact his PCP on Wednesday to arrange for close follow-up. He will need some repeat outpatient labs to follow his kidney function. No current indication for admission or further invasive exams or emergent imaging at this time based on current clinical presentation. Strict return precautions are given. Dragon Disclaimer: Keshia Disclaimer: This electronic medical record was generated, in whole or in part, using a voice recognition dictation system. Departure Departure Impression: Primary Impression: Back pain Additional Impressions: Myalgia Dehydration Chronic renal disease Disposition: HOME / SELF CARE / HOMELESS Condition: STABLE Referrals: UNKNOWN PCP NAME (PCP) Patient Instructions: Back Pain, Adult Additional Instructions: Use the prescription muscle relaxers as needed/as directed. Avoid taking these in association with your oxycodone, as this can increase your sleepiness and drowsiness, can make you more prone to falls or injury. Please contact your doctor on Wednesday to arrange for close follow-up. You will need to have your kidney function followed, you may require repeat outpatient labs within the next week or 2. Stay well-hydrated, drink plenty of fluids. Return to the ER for chest pain, shortness of breath, abdominal pain, vomiting, dehydration, focal motor weakness, if you have any acute injury or trauma, temperature 100.4 or higher or for any other concerns. Scripts Cyclobenzaprine Hcl (CYCLOBENZAPRINE HCL) 10 Mg Tablet 1 TAB PO BID for muscle spasm, #14 TAB Prov: VIANEY SILVA DO 02/23/21 VIANEY SILVA DO Feb 22, 2021 19:23
[2021-02-22] MEDS ORDERED: IV NORMAL SALINE 1000ML BAG 1,000 ML IV ONE ×2 (19:30→22:00)
[2021-02-22 19:37] LABS: BASO % 0 % (0-3); EOS # 0.1 x10^3/uL (0.0-0.7); EOS % 1 % (0-3); LYMPH # 1.4 x10^3/uL (1.0-4.8); LYMPH % 16 % (24-48); MEAN CORPUSCULAR HEMOGLOBIN 26 pg (25-35); MEAN CORPUSCULAR HGB CONC 33 g/dL (31-37); MEAN CORPUSCULAR VOLUME 81 fL (79-100); MONO # 0.6 x10^3/uL (0.0-1.1); MONO % 7 % (0-9); NEUT # 6.8 x10^3/uL (1.8-7.7); NEUT % 76 % (31-73); PLATELET COUNT 182 x10^3/uL (140-400); RED BLOOD COUNT 4.94 x10^6/uL (4.30-5.70); RED CELL DISTRIBUTION WIDTH 14.8 % (11.5-14.5)
[2021-02-22 19:48] LABS: CALCIUM 9.1 mg/dL (8.5-10.1); CREATININE 3.1 mg/dL (0.7-1.3); GFR 24.1; POTASSIUM 4.9 mmol/L (3.5-5.1)
[2021-02-22 19:55] LABS: ALBUMIN 3.1 g/dL (3.4-5.0); ALBUMIN/GLOBULIN RATIO 0.7 (1.0-1.7); MAGNESIUM 1.9 mg/dL (1.8-2.4); PHOSPHORUS 3.9 mg/dL (2.6-4.7); TOTAL BILIRUBIN 0.3 mg/dL (0.2-1.0); TOTAL PROTEIN 7.8 g/dL (6.4-8.2)
[2021-02-22] MEDS ORDERED: ORPHENADRINE CITRATE 60 MG/2 ML VIAL. IM ONE (22:00)
[2021-02-22 23:44] LABS: BILIRUBIN,URINE NEGATIVE (NEG); CLARITY,URINE CLEAR; COLOR,URINE YELLOW; NITRITE,URINE NEGATIVE (NEG); PROTEIN,URINE 30 mg/dL (NEG-TRACE); UROBILINOGEN,URINE 0.2 mg/dL (0.2 mg/dL)
[2021-02-22 23:50] LABS: AMORPHOUS SEDIMENT,UR PRESENT /HPF; BACTERIA,URINE 0 /HPF (0-FEW); HYALINE CASTS, URINE MANY /HPF; RBC,URINE RARE /HPF (0-2); WBC,URINE OCC /HPF (0-4)
[2021-02-22 23:51] LABS: BARBITURATES NEG (NEG); BENZODIAZEPINES NEG (NEG); CANNABINOIDS NEG (NEG); COCAINE NEG (NEG); METHADONE NEG (NEG); OPIATES NEG (NEG); PHENCYCLIDINE NEG (NEG)
[2021-02-22 23:54] LABS: AMPHETAMINE/METHAMPHETAMINE NEG (NEG)
[2021-02-23 00:10] LABS: CALCIUM 8.7 mg/dL (8.5-10.1); CREATININE 2.6 mg/dL (0.7-1.3); GFR 29.5; POTASSIUM 4.9 mmol/L (3.5-5.1)
[2021-02-23] MEDS ORDERED: CYCL10TA19 PO (00:34)
[2021-02-23 00:45] VITALS: BP 117/65
--- NOTE | 2021-02-23 02:10 | EKG ---
[facility] [address] [place] [address] Test Date: 2021-02-22 Test Time: 19:30:23 Pat Name: FALLON MORA Department: Room: Gender: M Front End Developer: : 1950 Requested By: VIANEY SILVA Order Number: [id number] Reading MD: Jimbo Ahn MD Measurements Intervals [place] Rate: 58 P: 42 AL: 206 QRS: 45 QRSD: 102 T: 66 QT: 422 QTc: 418 Interpretive Statements SINUS RHYTHM Electronically Signed On 02-24-2021 9:29:25 SUPERVISOR FURNACE ROOM by Jimbo Ahn MD
== END 2021-02-23 00:51 | disposition home or self-care (01) ==
LOC: ER 19:08
DX: E86.0 Dehydration (principal); E11.22 Type 2 diabetes mellitus with diabetic chronic kidney disease; I12.9 Hypertensive chronic kidney disease with stage 1 through stage 4 chronic kidney disease, or unspecified chronic kidney disease; N18.9 Chronic kidney disease, unspecified; M79.10 Myalgia, unspecified site; M54.50 Low back pain, unspecified; E78.00 Pure hypercholesterolemia, unspecified; I25.10 Atherosclerotic heart disease of native coronary artery without angina pectoris; I25.2 Old myocardial infarction
CPT/HCPCS: 36415; 80048; 80053; 80307; 81001; 82550; 83605; 83735; 84100; 85025; 87040; 93005; 96360; 96361; 96372; 99285; G0480; J2360; J7030

== ENCOUNTER 2021-04-09 14:31 | Emergency (ER) | payer BC, MEDICARE ==
[~2021-04-09] VITALS: Ht 182.9 cm; Wt 100.0 kg
[~2021-04-09 14:31] MED LIST changes: +CYCL10TA19 PO
--- NOTE | 2021-04-09 15:01 | PHYS DOC ---
Past Medical History Past Medical History: CAD, Diabetes-Type II, High Cholesterol, Hypertension, [place], TIA Additional Past Medical Histor: prostate CA, H pylori Past Surgical History: Other Additional Past Surgical Histo: abdominal clamp for H Pylori, EGD, AND HEART CATH Smoking Status: Former Smoker Alcohol Use: None Drug Use: None General Adult EDM: Chief Complaint: HYPERGLYCEMIA HPI: HPI: Patient is a 70-year-old male that presents today via [facility] with high blood sugar. Patient states that his since morning at 9 AM his blood sugar was over 500 he states he took 17 units of insulin subcutaneously and he presents today because he is concerned that his blood sugar will get too low. Currently his blood pressure sugar according to our [id number] testing is 303. Patient also states he has some left-sided weakness since 3 AM this morning, he states that when he gets tired he does get weak on the left side and he is very tired at this time he said he needs to take a nap. Patient states he also has a past medical history of TIAs in the past. Patient denies chest pain or shortness of air at this time, he also denies fever chills nausea or vomiting. Review of Systems: Review of Systems: Constitutional: Denies fever or chills. [] Eyes: Denies change in visual acuity. [] HENT: Denies nasal congestion or sore throat. [] Respiratory: Denies cough or shortness of breath. [] Cardiovascular: Denies chest pain or edema. [] GI: Denies abdominal pain, nausea, vomiting, bloody stools or diarrhea. [] : Denies dysuria. [] Musculoskeletal: Denies back pain or joint pain. [] Integument: Denies rash. [] Neurologic: Left-sided weakness denies headache, focal weakness or sensory changes. [] Endocrine: Hyperglycemia denies polyuria or polydipsia. [] Lymphatic: Denies swollen glands. [] Psychiatric: Denies depression or anxiety. [] Heart Score: C/O Chest Pain: N/A Risk Factors: Risk Factors: DM, Current or recent (<one month) smoker, HTN, HLP, family history of CAD, obesity. Risk Scores: Score 0 - 3: 2.5% MACE over next 6 weeks - Discharge Home Score 4 - 6: 20.3% MACE over next 6 weeks - Admit for Clinical Observation Score 7 - 10: 72.7% MACE over next 6 weeks - Early Invasive Strategies Allergies: Allergies: Allergies Coded Allergies Type Severity Reaction Last Updated Verified No Known Drug Allergies 02/22/21 No Physical Exam: PE: Constitutional: Somnolent, well developed, well nourished, no acute distress, non-toxic appearance. [] HENT: Normocephalic, atraumatic, bilateral external ears normal, oropharynx moist, no oral exudates, nose normal. [] Eyes: PERRLA, EOMI, conjunctiva normal, no discharge. [] Neck: Normal range of motion, no tenderness, supple, no stridor. [] Cardiovascular:Heart rate regular rhythm, no murmur [] Lungs & Thorax: Bilateral breath sounds, rhonchi noted in the right base diminished and the remaining lung sounds Abdomen: Bowel sounds normal, soft, no tenderness, no masses, no pulsatile masses. [] Skin: Warm, dry, no erythema, no rash. [] Back: No tenderness, no CVA tenderness. 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 [] Neurologic: Alert and oriented X 3, normal motor function, normal sensory function, no focal deficits noted. [] Psychologic: Affect normal, judgement normal, mood normal. [] Current Patient Data: Labs: Laboratory Tests Test 04/09/21 14:36 04/09/21 14:40 Glucose (Fingerstick) 303 mg/dL White Blood Count 6.4 x10^3/uL Red Blood Count 4.25 x10^6/uL Hemoglobin 11.1 g/dL Hematocrit 34.1 % Mean Corpuscular Volume 80 fL Mean Corpuscular Hemoglobin 26 pg Mean Corpuscular Hemoglobin Concent 33 g/dL Red Cell Distribution Width 15.9 % Platelet Count 139 x10^3/uL Neutrophils (%) (Auto) 60 % Lymphocytes (%) (Auto) 30 % Monocytes (%) (Auto) 8 % Eosinophils (%) (Auto) 2 % Basophils (%) (Auto) 1 % Neutrophils # (Auto) 3.8 x10^3/uL Lymphocytes # (Auto) 1.9 x10^3/uL Monocytes # (Auto) 0.5 x10^3/uL Eosinophils # (Auto) 0.1 x10^3/uL Basophils # (Auto) 0.0 x10^3/uL Sodium Level 135 mmol/L Potassium Level 4.7 mmol/L Chloride Level 100 mmol/L Carbon Dioxide Level 24 mmol/L Anion Gap 11 Blood Urea Nitrogen 42 mg/dL Creatinine 2.4 mg/dL Estimated GFR (Cockcroft-Gault) 32.4 BUN/Creatinine Ratio 18 Glucose Level 287 mg/dL Calcium Level 8.6 mg/dL Total Bilirubin 0.3 mg/dL Aspartate Amino Transf (AST/SGOT) 15 U/L Alanine Aminotransferase (ALT/SGPT) 19 U/L Alkaline Phosphatase 102 U/L Troponin I High Sensitivity 10 ng/L Total Protein 6.9 g/dL Albumin 3.1 g/dL Albumin/Globulin Ratio 0.8 Laboratory Tests Test 04/09/21 14:36 Glucose (Fingerstick) 303 mg/dL (70-99) H Vital Signs: Vital Signs Date Time Temp Pulse Resp B/P (MAP) Pulse Ox O2 Delivery O2 Flow Rate FiO2 04/09/21 16:15 67 18 146/68 (94) 96 Room Air 04/09/21 14:35 97.5 73 16 126/69 (88) 99 Room Air 97.5 Vital Signs Date Time Temp Pulse Resp B/P (MAP) Pulse Ox O2 Delivery O2 Flow Rate FiO2 04/09/21 14:35 97.5 73 16 126/69 (88) 99 Room Air 97.5 EKG: EKG: EKG done at [address] Maguire at 1505 shows normal sinus rhythm with no ectopy at a rate of 62 with a NC interval of 196 ms with a QTC of 414 no STEMI [] Radiology/Procedures: Radiology/Procedures: [REASON: LEFT SIDED WEAKNESS PROCEDURE: CT HEAD WO CONTRAST EXAM: Head CT without contrast. HISTORY: Left-sided weakness. TECHNIQUE: Computed tomographic images of the head were obtained without contrast. *One or more of the following individualized dose reduction techniques were utilized for this examination: 1. Automated exposure control. 2. Adjustment of the mA and/or kV according to patient size. 3. Use of iterative reconstruction technique. COMPARISON: MRI dated 09/19/2020. FINDINGS: There is no acute or subacute extra-axial or intraparenchymal hemorrhage. There is no mass effect or midline shift. There is no hydrocephalus. There are areas of decreased attenuation within the cerebral white matter, nonspecific and likely related to chronic small vessel disease. There is cerebral volume loss. There is extensive ossification along the falx. The visualized portion of the orbits and paranasal sinuses are unremarkable. The mastoid air cells are clear. IMPRESSION: 1. No acute intracranial finding. Note is made that MRI is more sensitive for acute infarction. 2. Bilateral cerebral white matter changes, likely due to chronic small vessel disease in a patient of this age. 3. Cerebral volume loss. Electronically signed by: Denise Shankar MD (04/09/2021 3:24 PM) [id number]] REASON: WEAKNESS PROCEDURE: CHEST AP ONLY EXAM: Chest, single view. HISTORY: Weakness. COMPARISON: 09/19/2020 FINDINGS: A frontal view of the chest obtained. There is no infiltrate, pleural effusion or pneumothorax. There is a stable prominent cardiac silhouette and evidence of prior CABG. IMPRESSION: No acute pulmonary finding. Electronically signed by: Denise Shankar MD (04/09/2021 3:14 PM) [id number] Course & Med Decision Making: Course & Med Decision Making Pertinent Labs and Imaging studies reviewed. (See chart for details) 1550 spoke to patient and significant other at the bedside regarding the radiological and laboratory findings here in the department, did inform them there was nothing acute on the CT scan, chest x-ray, or laboratory results. We did talk in depth about management of his diabetes on an outpatient basis he states that he is supposed to be checking his blood sugars before meals and at bedtime but he has not been doing that, he also states that he is supposed to be following a specific diet and he has not been doing that has been given resources by his primary care to follow and he has not been following those. Patient was encouraged to follow the outpatient recommendations by the primary care for management of his diabetes to check his blood sugars before meals and at bedtime and to call the dietary services which were referred to for further management of his diet with diabetes. Patient verbalized understanding of this as did the significant other and they are agreeable to outpatient management by the [facility] medical offices. Heart rate is currently 64 with a blood pressure of 126/69 with oxygen saturation of 100%, patient denies chest pain, shortness of air, at this time. Dragon Disclaimer: Dragon Disclaimer: This electronic medical record was generated, in whole or in part, using a voice recognition dictation system. Departure Departure Impression: Primary Impression: Hyperglycemia Disposition: HOME / SELF CARE / HOMELESS Condition: STABLE Referrals: UNKNOWN PCP NAME (PCP) Patient Instructions: 1800 Calorie Diet for Diabetes Meal Planning, Hyperglycemia Additional Instructions: Continue to take all your home medications as prescribed by your primary care physician Continue to check your blood sugars before every meal and at bedtime. Please record those findings so that your primary care physician has a better idea of how your blood sugar is managed at home Contacted the dietary referral from your primary care for further help with m anagement of your diet with diabetes Follow-up with your primary care physician or by the [facility] medical offices by phone this week for further management of your diabetes on an outpatient basis. DARLINE JOHNSON APRN Apr 09, 2021 15:01
[2021-04-09 15:11] LABS: BASO % 1 % (0-3); EOS # 0.1 x10^3/uL (0.0-0.7); EOS % 2 % (0-3); HEMATOCRIT 34.1 % (39.0-53.0); HEMOGLOBIN 11.1 g/dL (13.0-17.5); LYMPH # 1.9 x10^3/uL (1.0-4.8); LYMPH % 30 % (24-48); MEAN CORPUSCULAR HEMOGLOBIN 26 pg (25-35); MEAN CORPUSCULAR HGB CONC 33 g/dL (31-37); MEAN CORPUSCULAR VOLUME 80 fL (79-100); MONO # 0.5 x10^3/uL (0.0-1.1); MONO % 8 % (0-9); NEUT # 3.8 x10^3/uL (1.8-7.7); NEUT % 60 % (31-73); PLATELET COUNT 139 x10^3/uL (140-400); RED BLOOD COUNT 4.25 x10^6/uL (4.30-5.70); RED CELL DISTRIBUTION WIDTH 15.9 % (11.5-14.5); WHITE BLOOD COUNT 6.4 x10^3/uL (4.0-11.0)
--- NOTE | 2021-04-09 15:17 | RAD ---
EXAM: Chest, single view. HISTORY: Weakness. COMPARISON: 09/19/2020 FINDINGS: A frontal view of the chest obtained. There is no infiltrate, pleural effusion or pneumotho rax. There is a stable prominent cardiac silhouette and evidence of prior CABG. IMPRESSION: No acute pulmonary finding. Electronically signed by: Denise Shankar MD (04/09/2021 3:14 PM) [id number]
[2021-04-09 15:19] LABS: CALCIUM 8.6 mg/dL (8.5-10.1); CREATININE 2.4 mg/dL (0.7-1.3); GFR 32.4; POTASSIUM 4.7 mmol/L (3.5-5.1)
[2021-04-09 15:24] LABS: ALBUMIN 3.1 g/dL (3.4-5.0); ALBUMIN/GLOBULIN RATIO 0.8 (1.0-1.7); TOTAL BILIRUBIN 0.3 mg/dL (0.2-1.0); TOTAL PROTEIN 6.9 g/dL (6.4-8.2)
--- NOTE | 2021-04-09 15:26 | RAD ---
EXAM: Head CT without contrast. HISTORY: Left-sided weakness. TECHNIQUE: Computed tomographic images of the head were obtained without contrast. *One or more of the following individualized dose reduction techniques were utilized for this examina tion: 1. Automated exposure control. 2. Adjustment of the mA and/or kV according to patient size. 3. Use of iterative reconstruction technique. COMPARISON: MRI dated 09/19/2020. FINDINGS: There is no acute or subacute extra-axial or intraparenchymal hemorrhage. There is no mass effect or midline shift. There is no hydrocephalus. There are areas of decreased attenuation within the cerebral white matter, nonspecific and likely rel ated to chronic small vessel disease. There is cerebral volume loss. There is extensive ossification along the falx. The visualized portion of the orbits and paranasal si nuses are unremarkable. The mastoid air cells are clear. IMPRESSION: 1. No acute intracranial finding. Note is made that MRI is more sensitive for acute infarction. 2. Bilateral cerebral white matter changes, likely due to chronic small vessel disease in a patient o f this age. 3. Cerebral volume loss. Electronically signed by: Denise Shankar MD (04/09/2021 3:24 PM) [id number]
[2021-04-09 16:15] VITALS: BP 146/68
--- NOTE | 2021-04-10 07:35 | EKG ---
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
== END 2021-04-09 16:17 | disposition home or self-care (01) ==
LOC: ER 14:31
DX: E11.65 Type 2 diabetes mellitus with hyperglycemia (principal); I25.10 Atherosclerotic heart disease of native coronary artery without angina pectoris; E78.00 Pure hypercholesterolemia, unspecified; I10 Essential (primary) hypertension; I25.2 Old myocardial infarction; Z86.73 Personal history of transient ischemic attack (TIA), and cerebral infarction without residual deficits
CPT/HCPCS: 36415; 70450; 71045; 80053; 82962; 84484; 85025; 93005; 99285

== ENCOUNTER 2021-04-26 16:52 | Observation (INO) | payer BC ==
[~2021-04-26] VITALS: Ht 185.4 cm; Wt 97.0 kg
[2021-04-26] MEDS ORDERED: IV NORMAL SALINE 1000ML BAG 1,000 ML IV ONE ×2 (17:15→22:00)
--- NOTE | 2021-04-26 17:20 | PHYS DOC ---
Past Medical History Past Medical History: CAD, Diabetes-Type II, High Cholesterol, Hypertension, SD, TIA Additional Past Medical Histor: prostate CA, H pylori.MULTIPLE TIA'S Past Surgical History: Other Additional Past Surgical Histo: abdominal clamp for H Pylori, EGD, AND HEART CATH Smoking Status: Former Smoker Alcohol Use: None Drug Use: None General Adult EDM: Chief Complaint: DIZZY/LIGHT HEADED HPI: HPI: Patient is a 70 year old male who presents with 2 days ago was last seen normal and has now had lethargy, generalized weakness and complaining of some dizziness and chest pain. Patient lives with family at home. He is very lethargic and tired but does wake up briefly to answer my questions. He states the room is spinning. Patient has a history of hypertension high cholesterol, SD, CAD, diabetes, prostate cancer, H. pylori, 2 CVAs, heart cath, former smoker. He denies abdominal pain, nausea, vomiting, diarrhea, headache, numbness or tingling. Review of Systems: Review of Systems: Constitutional: Denies fever or chills. [] Eyes: Denies change in visual acuity. [] HENT: Denies nasal congestion or sore throat. [] Respiratory: Denies cough or shortness of breath. [] Cardiovascular: Denies chest pain or edema. [] GI: Denies abdominal pain, nausea, vomiting, bloody stools or diarrhea. [] : Denies dysuria. [] Musculoskeletal: Denies back pain or joint pain. [] Integument: Denies rash. [] Neurologic: Denies headache, focal weakness or sensory changes. [] Endocrine: Denies polyuria or polydipsia. [] Lymphatic: Denies swollen glands. [] Psychiatric: Denies depression or anxiety. [] Heart Score: C/O Chest Pain: Yes HEART Score for Chest Pain: HEART Score for Chest Pain Response (Comments) Value History Moderately Suspicious 1 ECG Nonspecific Repolarizatio 1 Age > 65 2 Risk Factors >3 Risk Factors or Hx CAD 2 Troponin < Normal Limit 0 Total 6 Risk Factors: Risk Factors: DM, Current or recent (<one month) smoker, HTN, HLP, family history of CAD, obesity. Risk Scores: Score 0 - 3: 2.5% MACE over next 6 weeks - Discharge Home Score 4 - 6: 20.3% MACE over next 6 weeks - Admit for Clinical Observation Score 7 - 10: 72.7% MACE over next 6 weeks - Early Invasive Strategies Current Medications: Current Medications Medications (Trade) Dose Ordered Sig/Laurie Start Time Stop Time Status Last Admin Dose Admin Sodium Chloride 1,000 ml @ 1,000 mls/hr 1X ONCE 04/26/21 17:15 04/26/21 18:14 Allergies: Allergies: Allergies Coded Allergies Type Severity Reaction Last Updated Verified No Known Drug Allergies 04/26/21 No Physical Exam: PE: Constitutional: Well developed, well nourished, no acute distress, non-toxic appearance. [] HENT: Normocephalic, atraumatic, bilateral external ears normal, oropharynx moist, no oral exudates, nose normal. [] Eyes: PERRLA, EOMI, conjunctiva normal, no discharge. [] Neck: Normal range of motion, no tenderness, supple, no stridor. [] Cardiovascular:Heart rate regular rhythm, no murmur [] Lungs & Thorax: Bilateral upper breath sounds clear and lower diminished to auscultation [] Abdomen: Bowel sounds normal, soft, no tenderness, no masses, no pulsatile masses. [] Skin: Warm, dry, no erythema, no rash. [] Back: No tenderness, no CVA tenderness. [] Extremities: No tenderness, no cyanosis, no clubbing, ROM intact, no edema. [] Neurologic: Alert and oriented X 3, normal motor function, normal sensory function, no focal deficits noted. Lethargic. [] Psychologic: Affect normal, judgement normal, mood normal. [] EKG: EK and read by Dr. Del Valle is sinus rhythm with QTC elongation and T wave inversion in V2 through V5. Radiology/Procedures: Radiology/Procedures: [] Impression: [facility] [address] [place] [address] IMAGING REPORT Signed PATIENT: FALLON MORA ACCOUNT: [id number] : 1950 LOCATION: ER AGE: 70 SEX: M EXAM STATUS: REG ER ORD. PHYSICIAN: KAYLENE DÍAZ APRN REASON: AMS, CHEST PAIN PROCEDURE: CT HEAD AND CERVICAL SPINE WO CT HEAD AND C-SPINE WO dated 04/26/2021 6:48 PM. Comparison: 04/09/2021 Clinical Indication: Altered mental status. Pain after fall.. Technical factors: Contiguous 5 mm axial images of the head were obtained from the skullbase to the vertex. No contrast was administered. In addition, 3 mm axial images of the cervical spine were acquired with thin cut coronal and sagittal reconstructions. One or more of the following individualized dose reduction techniques were utilized for this examination: 1. Automated exposure control 2. Adjustment of the mA and/or kV according to patient size 3. Use of iterative reconstruction technique Findings head: Ventricles and sulci are mildly prominent for age. No midline shift or mass effect. Mild patchy low density in the deep/subcortical periventricular white matter. No hemorrhage or extra-axial collection. Posterior fossa and brainstem unremarkable. Mild mucosal thickening of the ethmoid air cells. The visualized paranasal sinuses and mastoid air cells are otherwise clear. No apparent calvarial abnormality. Prominent falcine calcification. IMPRESSION HEAD: 1. No evidence of acute intracranial hemorrhage or mass. 2. Mild chronic small vessel ischemic changes and atrophy. 3. Mild sinus disease. Findings cervical spine: Images were acquired from the skull base to T3. There is straightening of the normal cervical lordosis, otherwise sagittal alignment is anatomic. Vertebral body heights are maintained. No prevertebral soft tissue swelling. Posterior elements are intact. No fractures are identified. Mild endplate hypertrophic changes throughout. Mild multilevel facet arthropathy and uncovertebral spurring. No apparent focal disc herniation. There is resultant moderate bilateral foraminal stenosis at the C3-C4 level with milder degrees of foraminal narrowing at the remaining levels. No significant central canal compromise. Visualized soft tissue structures are unremarkable. Limited images of lung apices are clear. IMPRESSION CERVICAL SPINE: 1. No evidence of fracture or malalignment. 2. Mild multilevel cervical spondylosis. Electronically signed by: Randall Alanis MD (04/26/2021 7:33 PM) [facility] [place] and SIGNED BY: RANDALL ALANIS MD DATE: 04/26/21 [id number] [facility] [address] [place] [address] IMAGING REPORT Signed PATIENT: FALLON MORA ACCOUNT: [id number] : 1950 LOCATION: ER AGE: 70 SEX: M EXAM STATUS: REG ER ORD. PHYSICIAN: KAYLENE DÍAZ APRN REASON: ams PROCEDURE: CT CHEST ABDOMEN PELVIS WO CT chest abdomen pelvis without contrast dated 04/26/2021. COMPARISON: 02/05/2019 INDICATION: Pain after injury. Altered mental status. TECHNIQUE: Contiguous axial imaging the chest abdomen pelvis performed without the administration of IV or oral contrast. One or more of the following individualized dose reduction techniques were utilized for this examination: 1. Automated exposure control 2. Adjustment of the mA and/or kV according to patient size 3. Use of iterative reconstruction technique FINDINGS: Heart size is upper limits of normal. No pericardial effusion. The patient is status post median sternotomy and CABG procedure. No mediastinal, hilar or axillary lymphadenopathy. Thyroid gland is unremarkable. Central airways are patent. Lungs are clear. No consolidation or pleural effusion. No pneumothorax. There is a noncalcified pulmonary nodule in the left lower lobe laterally on image 43 that measures 4 mm, unchanged. 3 mm noncalcified pulmonary nodule in the left lower lobe on image 52, also stable. There are couple of tiny subpleural densities in the right lower lobe. Solid abdominal viscera not well evaluated in the absence of contrast material. No apparent attenuation abnormality of the liver or spleen. Gallbladder is surgically absent. Pancreas is somewhat atrophic. Adrenal glands and kidneys are unremarkable. No stone or hydronephrosis. There indeterminate low-density foci at the lower pole of left kidney and midpole right kidney that measure up to 1.5 cm, similar to prior study. Unopacified GI tract normal in caliber and contour. No focal bowel wall thickening. No inflammatory stranding in the mesentery. Appendix is not clearly identified. No inflammatory changes in the right lower quadrant. Dense ather osclerotic calcifications of the abdominal aorta without evidence of aneurysm. No retroperitoneal or mesenteric adenopathy. Images of pelvis show nondistended urinary bladder. Prostate gland is mildly enlarged. No free fluid or lymphadenopathy. Bone window show no acute finding. Multilevel spondylosis. IMPRESSION: 1. No acute abnormality of chest abdomen or pelvis. 2. There are a few small noncalcified pulmonary nodules in the left lower lobe, nonspecific but unchanged. 3. Indeterminate low-density foci at the bilateral kidney, similar to prior study, likely cysts. 4. Status post cholecystectomy. Electronically signed by: Randall Alanis MD (04/26/2021 7:40 PM) [facility] [place]CT[place] and SIGNED BY: RANDALL ALANIS MD DATE: 04/26/21 [id number] Course & Med Decision Making: Course & Med Decision Making Pertinent Labs and Imaging studies reviewed. (See chart for details) See HPI. Lethargic but can be aroused with sternal rub and same name and oriented x4. Speaks in full clear sentences. No facial droop is seen. Does move his eyes from side to side when he is talking to people to look at you. PERRLA. He does move all of his extremities and can roll himself away from painful stimuli such as starting the IV. Cannot do a proper NIH due to his altered lethargic status. He does have low blood pressure in the 80s. EMS reported in the 70s. He is receiving fluids. Abdomen is soft and nontender. Patient does have T inversions in V 2 through V5. He does have a elongated QTC. Patient is still very lethargic and drowsy appearing after 1500 mL of normal saline. He states that the dizziness has gotten better after fluid. Blood pressure has improved. Is positive for cocaine use. Admitted to hospitalist for observation. [] Keshia Disclaimer: Keshia Disclaimer: This electronic medical record was generated, in whole or in part, using a voice recognition dictation system. COVID-19 Patient Risks: Age 65 or older: Yes Sign of co-morbidity: Yes Exp to person + for COVID: No Exp to PUI: No Travel from affected area: No Lower respiratory symptoms: No Fever: No Other: Yes (FATIGUE) PPE Use: Full PPE with N95 mask or PAPR: Yes Departure Departure Impression: Primary Impression: AMS (altered mental status) Qualified Codes: R41.82 - Altered mental status, unspecified Additional Impression: Cocaine abuse Disposition: ADMITTED INPATIENT Admitting Physician: AMBROSIO Condition: STABLE Referrals: UNKNOWN PCP NAME (PCP) KAYLENE DÍAZ APRN Apr 26, 2021 17:19
[2021-04-26 17:34] LABS: BASO % 1 % (0-3); EOS # 0.1 x10^3/uL (0.0-0.7); EOS % 1 % (0-3); HEMATOCRIT 35.1 % (39.0-53.0); HEMOGLOBIN 11.3 g/dL (13.0-17.5); LYMPH % 33 % (24-48); MEAN CORPUSCULAR HEMOGLOBIN 26 pg (25-35); MEAN CORPUSCULAR HGB CONC 32 g/dL (31-37); MEAN CORPUSCULAR VOLUME 81 fL (79-100); MONO # 0.5 x10^3/uL (0.0-1.1); MONO % 9 % (0-9); NEUT # 3.4 x10^3/uL (1.8-7.7); NEUT % 57 % (31-73); PLATELET COUNT 178 x10^3/uL (140-400); RED BLOOD COUNT 4.32 x10^6/uL (4.30-5.70); RED CELL DISTRIBUTION WIDTH 16.8 % (11.5-14.5)
[2021-04-26 17:44] LABS: PROTHROMBIN TIME PATIENT 13.5 SEC (11.7-14.0)
[2021-04-26 17:50] LABS: CALCIUM 9.1 mg/dL (8.5-10.1); CREATININE 2.8 mg/dL (0.7-1.3); GFR 27.1
[2021-04-26 18:02] LABS: ALBUMIN 3.8 g/dL (3.4-5.0); ALBUMIN/GLOBULIN RATIO 0.9 (1.0-1.7); MAGNESIUM 1.9 mg/dL (1.8-2.4); TOTAL BILIRUBIN 0.4 mg/dL (0.2-1.0); TOTAL PROTEIN 8.1 g/dL (6.4-8.2)
[2021-04-26 18:12] LABS: INFLUENZA A PATIENT NEGATIVE (NEGATIVE); INFLUENZA B PATIENT NEGATIVE (NEGATIVE)
--- NOTE | 2021-04-26 19:35 | RAD ---
CT HEAD AND C-SPINE WO dated 04/26/2021 6:48 PM. Comparison: 04/09/2021 Clinical Indication: Altered mental status. Pain after fall.. Technical factors: Contiguous 5 mm axial images of the head were obtained from the skullbase to the v ertex. No contrast was administered. In addition, 3 mm axial images of the cervical spine were acquir ed with thin cut coronal and sagittal reconstructions. One or more of the following individualized dose reduction techniques were utilized for this examinat ion: 1. Automated exposure control 2. Adjustment of the mA and/or kV according to patient size 3. Use of iterative reconstruction technique Findings head: Ventricles and sulci are mildly prominent for age. No midline shift or mass effect. Mild patchy low d ensity in the deep/subcortical periventricular white matter. No hemorrhage or extra-axial collection. Posterior fossa and brainstem unremarkable. Mild mucosal thickening of the ethmoid air cells. The visualized paranasal sinuses and mastoid air ce lls are otherwise clear. No apparent calvarial abnormality. Prominent falcine calcification. IMPRESSION HEAD: 1. No evidence of acute intracranial hemorrhage or mass. 2. Mild chronic small vessel ischemic changes and atrophy. 3. Mild sinus disease. Findings cervical spine: Images were acquired from the skull base to T3. There is straightening of the normal cervical lordosi s, otherwise sagittal alignment is anatomic. Vertebral body heights are maintained. No prevertebral s oft tissue swelling. Posterior elements are intact. No fractures are identified. Mild endplate hypertrophic changes throughout. Mild multilevel facet arthropathy and uncovertebral sp urring. No apparent focal disc herniation. There is resultant moderate bilateral foraminal stenosis a t the C3-C4 level with milder degrees of foraminal narrowing at the remaining levels. No significant central canal compromise. Visualized soft tissue structures are unremarkable. Limited images of lung apices are clear. IMPRESSION CERVICAL SPINE: 1. No evidence of fracture or malalignment. 2. Mild multilevel cervical spondylosis. Electronically signed by: Randall Alanis MD (04/26/2021 7:33 PM) [facility] [place]
--- NOTE | 2021-04-26 19:42 | RAD ---
CT chest abdomen pelvis without contrast dated 04/26/2021. COMPARISON: 02/05/2019 INDICATION: Pain after injury. Altered mental status. TECHNIQUE: Contiguous axial imaging the chest abdomen pelvis performed without the administration of IV or oral contrast. One or more of the following individualized dose reduction techniques were utilized for this examinat ion: 1. Automated exposure control 2. Adjustment of the mA and/or kV according to patient size 3. Use of iterative reconstruction technique FINDINGS: Heart size is upper limits of normal. No pericardial effusion. The patient is status post median ster notomy and CABG procedure. No mediastinal, hilar or axillary lymphadenopathy. Thyroid gland is unrema rkable. Central airways are patent. Lungs are clear. No consolidation or pleural effusion. No pneumothorax. T here is a noncalcified pulmonary nodule in the left lower lobe laterally on image 43 that measures 4 mm, unchanged. 3 mm noncalcified pulmonary nodule in the left lower lobe on image 52, also stable. Th ere are couple of tiny subpleural densities in the right lower lobe. Solid abdominal viscera not well evaluated in the absence of contrast material. No apparent attenuati on abnormality of the liver or spleen. Gallbladder is surgically absent. Pancreas is somewhat atrophi c. Adrenal glands and kidneys are unremarkable. No stone or hydronephrosis. There indeterminate low-d ensity foci at the lower pole of left kidney and midpole right kidney that measure up to 1.5 cm, mendez lar to prior study. Unopacified GI tract normal in caliber and contour. No focal bowel wall thickening. No inflammatory s tranding in the mesentery. Appendix is not clearly identified. No inflammatory changes in the right l ower quadrant. Dense atherosclerotic calcifications of the abdominal aorta without evidence of aneury sm. No retroperitoneal or mesenteric adenopathy. Images of pelvis show nondistended urinary bladder. Prostate gland is mildly enlarged. No free fluid or lymphadenopathy. Bone window show no acute finding. Multilevel spondylosis. IMPRESSION: 1. No acute abnormality of chest abdomen or pelvis. 2. There are a few small noncalcified pulmonary nodules in the left lower lobe, nonspecific but uncha nged. 3. Indeterminate low-density foci at the bilateral kidney, similar to prior study, likely cysts. 4. Status post cholecystectomy. Electronically signed by: Randall Alanis MD (04/26/2021 7:40 PM) [facility]
[2021-04-26 20:12] LABS: BILIRUBIN,URINE NEGATIVE (NEG); CLARITY,URINE CLEAR; COLOR,URINE YELLOW
[2021-04-26 20:13] LABS: NITRITE,URINE NEGATIVE (NEG); PROTEIN,URINE 100 mg/dL (NEG-TRACE)
[2021-04-26 20:14] LABS: BACTERIA,URINE 0 /HPF (0-FEW); HYALINE CASTS, URINE MODERATE /HPF; RBC,URINE 0 /HPF (0-2); WBC,URINE 0 /HPF (0-4)
[2021-04-26 20:16] LABS: BARBITURATES NEG (NEG); BENZODIAZEPINES NEG (NEG); CANNABINOIDS NEG (NEG); COCAINE POS (NEG); METHADONE NEG (NEG); OPIATES NEG (NEG); PHENCYCLIDINE NEG (NEG)
[2021-04-26 20:17] LABS: AMPHETAMINE/METHAMPHETAMINE NEG (NEG)
[2021-04-26] MEDS ORDERED: CETIRIZINE HCL 10 MG TABLET. PO PRN (21:30)
--- NOTE | 2021-04-26 21:31 | PDOC1 ---
History and Physical Date of Admission Date of Admission DATE: 04/26/21 TIME: 21:19 History of Present Illness History of Present Illness Mr. Weber is a 70 year old male admit from the ER for acute lethargy. Brought to the ER by his family for generalized weakness and complaining of some dizziness and chest pain. He awkens briefly to talk and tells me he is hungry, then falls back asleep before I finish my interivew./ He did complain to ER staff that he had a sensation of the room spinning. Patient lives with family at home, He denied abdominal pain, nausea, vomiting, diarrhea, headache, numbness or tingling. Past Medical History Past Medical History hypertension, high cholesterol, MD, CAD, diabetes, prostate cancer, H. pylori, stroke Cardiovascular: CAD, HTN, Hyperlipidemia GI: Constipation Musculoskeletal: low back pain Renal/: No pertinent hx, Chronic renal failure Endocrine: Diabetes Past Surgical History Past Surgical History: Appendectomy Family History Family History: Heart Disease, Kidney Disease Social History Smoke: Quit ALCOHOL: occassional Drugs: Cocaine Current Problem List Problem List Problems Medical Problems: (1) AMS (altered mental status) Status: Acute (2) Cocaine abuse Status: Acute Current Medications Current Medications Current Medications Sodium Chloride 1,000 ml @ 1,000 mls/hr 1X ONCE IV Last administered on 04/26/21at 17:30; Start 04/26/21 at 17:15; Stop 04/26/21 at 18:14; Status DC Active Scripts Active Cyclobenzaprine Hcl 10 Mg Tablet 1 Tab PO BID Levemir (Insulin Detemir) 100 Unit/1 Ml Vial 22 Unit SQ HS 30 Days Pantoprazole Sodium (Pantoprazole Sodium) 40 Mg Tablet.dr 40 Mg PO DAILYAC Reported Novolog (Insulin Aspart) 100 Unit/1 Ml Cartridge 10 Unit SQ TIDWMEALS Ropinirole Hcl 0.5 Mg Tablet 0.5 Mg PO HS Flomax (Tamsulosin Hcl) 0.4 Mg Cap.er.24h 0.4 Mg PO HS Metoprolol Tartrate 25 Mg Tablet 25 Mg PO HS Loratadine 10 Mg Tablet 1 Tab PO PRN DAILY PRN Hydralazine Hcl 50 Mg Tablet 50 Mg PO QID Furosemide 20 Mg Tablet 20 Mg PO DAILY Clopidogrel (Clopidogrel Bisulfate) 75 Mg Tablet 1 Tab PO DAILY Vitamin D3 (Cholecalciferol (Vitamin D3)) 1,000 Unit Tablet 1 Tab PO DAILY Atorvastatin Calcium 40 Mg Tablet 1 Tab PO QHS Aspirin 81 Mg Tab.chew 1 Tab PO DAILY Allopurinol 100 Mg Tablet 1 Tab PO DAILY Amlodipine Besylate 10 Mg Tablet 10 Mg PO DAILY Allergies Allergies: Coded Allergies: No Known Drug Allergies (Unverified , 04/26/21) ROS General: YES: Chills, Fatigue, Malaise PSYCHOLOGICAL ROS: No: Anxiety, Behavioral Disorder, Concentration difficultie, Decreased libido, Depression, Disorientation, Hallucinations, Hostility, Irritablity, Memory difficulties, Mood Swings, Obsessive thoughts, Physical abuse, Sexual abuse, Sleep disturbances, Suicidal ideation, Other Eyes: No Blurry vision, No Decreased vision, No Double vision, No Dry eyes, No Excessive tearing, No Eye Pain, No Itchy Eyes, No Loss of vision, No Photophobia, No Scotomata, No Uses contacts, No Uses glasses, No Other HEENT: YES: Heacaches Respiratory: No: Cough, Hemoptysis, Orthopnea, Pleuritic Pain, Shortness of breath, SOB with excertion, Sputum Changes, Stridor, Tachypnea, Wheezing, Other Cardiovascular: No Chest Pain, No Palpitations, No Orthopnea, No Paroxysmal Noc. Dyspnea, No Edema, No Lt Headedness, No Other Gastrointestinal: Yes Nausea Genitourinary: No Dysuria, No Frequency, No Incontinence, No Hematuria, No Retention, No Discharge, No Urgency, No Pain, No Flank Pain, No Other, No , No , No , No , No , No , No Musculoskeletal: No Gait Disturbance, No Joint Pain, No Joint Stiffness, No Joint Swelling, No Muscle Pain, No Muscular Weakness, No Pain In:, No Swelling In:, No Other Neurological: No Behavorial Changes, No Bowel/Bladder ControlChng, No Confusion, No Dizziness, No Gait Disturbance, No Headaches, No Impaired Coord/b alance, No Memory Loss, No Numbness/Tingling, No Seizures, No Speech Problems, No Tremors, No Visual Changes, No Weakness, No Other Skin: No Dry Skin, No Eczema, No Hair Changes, No Lumps, No Mole Changes, No Mottling, No Nail Changes, No Pruritus, No Rash, No Skin Lesion Changes, No Other, No Acne Physical Exam General: Cooperative, mild distress, Other (lethargic, falls asleep) HEENT: PERRLA Lungs: Clear to auscultation Heart: S1S2, irregularly irregular Abdomen: Normal bowel sounds, Soft Extremities: No edema Skin: No significant lesion Neuro: Sensation intact Psych/Mental Status: Other (fatigue) Vitals Vitals Vital Signs Date Time Temp Pulse Resp B/P (MAP) Pulse Ox O2 Delivery O2 Flow Rate FiO2 04/26/21 20:13 58 15 119/56 (77) 100 Room Air 04/26/21 16:53 97.2 97.2 Labs Labs Laboratory Tests Test 04/26/21 17:00 04/26/21 17:47 04/26/21 18:49 04/26/21 19:58 White Blood Count 6.0 x10^3/uL (4.0-11.0) Red Blood Count 4.32 x10^6/uL (4.30-5.70) Hemoglobin 11.3 g/dL (13.0-17.5) Hematocrit 35.1 % (39.0-53.0) Mean Corpuscular Volume 81 fL (79-100) Mean Corpuscular Hemoglobin 26 pg (25-35) Mean Corpuscular Hemoglobin Concent 32 g/dL (31-37) Red Cell Distribution Width 16.8 % (11.5-14.5) Platelet Count 178 x10^3/uL (140-400) Neutrophils (%) (Auto) 57 % (31-73) Lymphocytes (%) (Auto) 33 % (24-48) Monocytes (%) (Auto) 9 % (0-9) Eosinophils (%) (Auto) 1 % (0-3) Basophils (%) (Auto) 1 % (0-3) Neutrophils # (Auto) 3.4 x10^3/uL (1.8-7.7) Lymphocytes # (Auto) 2.0 x10^3/uL (1.0-4.8) Monocytes # (Auto) 0.5 x10^3/uL (0.0-1.1) Eosinophils # (Auto) 0.1 x10^3/uL (0.0-0.7) Basophils # (Auto) 0.0 x10^3/uL (0.0-0.2) Prothrombin Time 13.5 SEC (11.7-14.0) Prothromb Time International Ratio 1.0 (0.8-1.1) Activated Partial Thromboplast Time 22 SEC (24-38) Sodium Level 145 mmol/L (136-145) Potassium Level 4.0 mmol/L (3.5-5.1) Chloride Level 105 mmol/L (98-107) Carbon Dioxide Level 26 mmol/L (21-32) Anion Gap 14 (6-14) Blood Urea Nitrogen 37 mg/dL (8-26) Creatinine 2.8 mg/dL (0.7-1.3) Estimated GFR (Cockcroft-Gault) 27.1 BUN/Creatinine Ratio 13 (6-20) Glucose Level 79 mg/dL (70-99) Lactic Acid Level 1.8 mmol/L (0.4-2.0) Calcium Level 9.1 mg/dL (8.5-10.1) Magnesium Level 1.9 mg/dL (1.8-2.4) Total Bilirubin 0.4 mg/dL (0.2-1.0) Aspartate Amino Transf (AST/SGOT) 13 U/L (15-37) Alanine Aminotransferase (ALT/SGPT) 19 U/L (16-63) Alkaline Phosphatase 94 U/L (46-116) Troponin I High Sensitivity 15 ng/L (4-75) KJ-Dba-D-Type Natriuretic Peptide 598 pg/mL (0-124) Total Protein 8.1 g/dL (6.4-8.2) Albumin 3.8 g/dL (3.4-5.0) Albumin/Globulin Ratio 0.9 (1.0-1.7) Acetone Level Neg (NEG) Influenza Type A Antigen Negative (NEGATIVE) Influenza Type B Antigen Negative (NEGATIVE) SARS-CoV-2 Antigen (Rapid) Negative (NEGATIVE) Glucose (Fingerstick) 104 mg/dL (70-99) Urine Collection Type U cath Urine Color Yellow Urine Clarity Clear Urine pH 6.0 (<5.0-8.0) Urine Specific [place] 1.020 (1.000-1.030) Urine Protein 100 mg/dL (NEG-TRACE) Urine Glucose (UA) >=1000 mg/dL (NEG) Urine Ketones (Stick) Negative mg/dL (NEG) Urine Blood Trace (NEG) Urine Nitrite Negative (NEG) Urine Bilirubin Negative (NEG) Urine Urobilinogen Dipstick 1.0 mg/dL (0.2 mg/dL) Urine Leukocyte Esterase Negative (NEG) Urine RBC 0 /HPF (0-2) Urine WBC 0 /HPF (0-4) Urine Squamous Epithelial Cells Few /LPF Urine Bacteria 0 /HPF (0-FEW) Urine Hyaline Casts Moderate /HPF Urine Mucus Mod /LPF Urine Opiates Screen Neg (NEG) Urine Methadone Screen Neg (NEG) Urine Barbiturates Neg (NEG) Urine Phencyclidine Screen Neg (NEG) Urine Amphetamine/Methamphetamine Neg (NEG) Urine Benzodiazepines Screen Neg (NEG) Urine Cocaine Screen Pos (NEG) Urine Cannabinoids Screen Neg (NEG) Urine Ethyl Alcohol Neg (NEG) Laboratory Tests Test 04/26/21 17:00 04/26/21 17:47 04/26/21 18:49 04/26/21 19:58 White Blood Count 6.0 x10^3/uL (4.0-11.0) Red Blood Count 4.32 x10^6/uL (4.30-5.70) Hemoglobin 11.3 g/dL (13.0-17.5) Hematocrit 35.1 % (39.0-53.0) Mean Corpuscular Volume 81 fL (79-100) Mean Corpuscular Hemoglobin 26 pg (25-35) Mean Corpuscular Hemoglobin Concent 32 g/dL (31-37) Red Cell Distribution Width 16.8 % (11.5-14.5) Platelet Count 178 x10^3/uL (140-400) Neutrophils (%) (Auto) 57 % (31-73) Lymphocytes (%) (Auto) 33 % (24-48) Monocytes (%) (Auto) 9 % (0-9) Eosinophils (%) (Auto) 1 % (0-3) Basophils (%) (Auto) 1 % (0-3) Neutrophils # (Auto) 3.4 x10^3/uL (1.8-7.7) Lymphocytes # (Auto) 2.0 x10^3/uL (1.0-4.8) Monocytes # (Auto) 0.5 x10^3/uL (0.0-1.1) Eosinophils # (Auto) 0.1 x10^3/uL (0.0-0.7) Basophils # (Auto) 0.0 x10^3/uL (0.0-0.2) Prothrombin Time 13.5 SEC (11.7-14.0) Prothromb Time International Ratio 1.0 (0.8-1.1) Activated Partial Thromboplast Time 22 SEC (24-38) Sodium Level 145 mmol/L (136-145) Potassium Level 4.0 mmol/L (3.5-5.1) Chloride Level 105 mmol/L (98-107) Carbon Dioxide Level 26 mmol/L (21-32) Anion Gap 14 (6-14) Blood Urea Nitrogen 37 mg/dL (8-26) Creatinine 2.8 mg/dL (0.7-1.3) Estimated GFR (Cockcroft-Gault) 27.1 BUN/Creatinine Ratio 13 (6-20) Glucose Level 79 mg/dL (70-99) Lactic Acid Level 1.8 mmol/L (0.4-2.0) Calcium Level 9.1 mg/dL (8.5-10.1) Magnesium Level 1.9 mg/dL (1.8-2.4) Total Bilirubin 0.4 mg/dL (0.2-1.0) Aspartate Amino Transf (AST/SGOT) 13 U/L (15-37) Alanine Aminotransferase (ALT/SGPT) 19 U/L (16-63) Alkaline Phosphatase 94 U/L (46-116) Troponin I High Sensitivity 15 ng/L (4-75) UA-Ycg-N-Type Natriuretic Peptide 598 pg/mL (0-124) Total Protein 8.1 g/dL (6.4-8.2) Albumin 3.8 g/dL (3.4-5.0) Albumin/Globulin Ratio 0.9 (1.0-1.7) Acetone Level Neg (NEG) Influenza Type A Antigen Negative (NEGATIVE) Influenza Type B Antigen Negative (NEGATIVE) SARS-CoV-2 Antigen (Rapid) Negative (NEGATIVE) Glucose (Fingerstick) 104 mg/dL (70-99) Urine Collection Type U cath Urine Color Yellow Urine Clarity Clear Urine pH 6.0 (<5.0-8.0) Urine Specific [place] 1.020 (1.000-1.030) Urine Protein 100 mg/dL (NEG-TRACE) Urine Glucose (UA) >=1000 mg/dL (NEG) Urine Ketones (Stick) Negative mg/dL (NEG) Urine Blood Trace (NEG) Urine Nitrite Negative (NEG) Urine Bilirubin Negative (NEG) Urine Urobilinogen Dipstick 1.0 mg/dL (0.2 mg/dL) Urine Leukocyte Esterase Negative (NEG) Urine RBC 0 /HPF (0-2) Urine WBC 0 /HPF (0-4) Urine Squamous Epithelial Cells Few /LPF Urine Bacteria 0 /HPF (0-FEW) Urine Hyaline Casts Moderate /HPF Urine Mucus Mod /LPF Urine Opiates Screen Neg (NEG) Urine Methadone Screen Neg (NEG) Urine Barbiturates Neg (NEG) Urine Phencyclidine Screen Neg (NEG) Urine Amphetamine/Methamphetamine Neg (NEG) Urine Benzodiazepines Screen Neg (NEG) Urine Cocaine Screen Pos (NEG) Urine Cannabinoids Screen Neg (NEG) Urine Ethyl Alcohol Neg (NEG) VTE Prophylaxis Ordered VTE Prophylaxis Devices: Yes VTE Pharmacological Prophylaxi: Yes Assessment/Plan Assessment/Plan acute toxic encephalopathy Cocaine abuse, urine pos 4/5 times he has been in the ER acute renal failure on CKD 3, iv fluid BMI 31 CHF, chronic systolic hx CAD, Stroke, plavix, aspirin, statin Justifications for Admission Other Justification MICHAEL QUACH MD Apr 26, 2021 21:31
[2021-04-26] MEDS: TAMSULOSIN 0.4 MG CAP.ER.24H. PO SCH (22:42)
[2021-04-26] MEDS: CYCLOBENZAPRINE 10 MG TABLET. PO SCH (22:42)
[2021-04-26] MEDS: ATORVASTATIN CALCIUM 40 MG TABLET. PO SCH (22:42)
[2021-04-26 23:22] VITALS: BP 137/72
[2021-04-27 03:18] VITALS: BP 163/73
[2021-04-27 07:26] LABS: BASO % 0 % (0-3); EOS # 0.1 x10^3/uL (0.0-0.7); EOS % 2 % (0-3); HEMATOCRIT 33.4 % (39.0-53.0); HEMOGLOBIN 10.7 g/dL (13.0-17.5); LYMPH # 2.3 x10^3/uL (1.0-4.8); LYMPH % 34 % (24-48); MEAN CORPUSCULAR HEMOGLOBIN 26 pg (25-35); MEAN CORPUSCULAR HGB CONC 32 g/dL (31-37); MEAN CORPUSCULAR VOLUME 81 fL (79-100); MONO # 0.5 x10^3/uL (0.0-1.1); MONO % 8 % (0-9); NEUT # 3.7 x10^3/uL (1.8-7.7); NEUT % 56 % (31-73); PLATELET COUNT 142 x10^3/uL (140-400); RED BLOOD COUNT 4.14 x10^6/uL (4.30-5.70); RED CELL DISTRIBUTION WIDTH 17.2 % (11.5-14.5); WHITE BLOOD COUNT 6.6 x10^3/uL (4.0-11.0)
[2021-04-27 07:47] LABS: ALBUMIN/GLOBULIN RATIO 0.7 (1.0-1.7); CALCIUM 7.7 mg/dL (8.5-10.1); GFR 39.9; POTASSIUM 4.3 mmol/L (3.5-5.1); TOTAL BILIRUBIN 0.4 mg/dL (0.2-1.0); TOTAL PROTEIN 7.1 g/dL (6.4-8.2)
[2021-04-27 08:11] VITALS: BP 155/71
[2021-04-27] MEDS: FUROSEMIDE 20 MG TABLET PO SCH (09:05)
[2021-04-27] MEDS: CLOPIDOGREL BISULFATE 75 MG TABLET PO SCH (09:05)
[2021-04-27] MEDS: ALLOPURINOL 100 MG TABLET. PO SCH (09:05)
[2021-04-27] MEDS: CHOLECALCIFEROL (VITAMIN D3) 1,000 UNIT TABLET PO SCH (09:05)
[2021-04-27] MEDS: ASPIRIN CHEWABLE 81 MG TABLET. PO SCH (09:05)
[2021-04-27] MEDS: PANTOPRAZOLE 40 MG TABLET.DR. PO SCH (09:05)
[2021-04-27] MEDS: CYCLOBENZAPRINE 10 MG TABLET. PO SCH ×2 (09:05→20:42)
[2021-04-27] MEDS ORDERED: DEXTROSE 50% 25 GM / 50ML DISP.SYRIN. IV PRN (10:15)
[2021-04-27] MEDS ORDERED: IV DEXTROSE 5% 250 ML BAG. IV PRN (10:15)
[2021-04-27] MEDS ORDERED: INSULIN LISPRO 300 UNITS/3 ML VIAL. SQ ONE (10:30)
[2021-04-27] MEDS: INSULIN LISPRO 300 UNITS/3 ML VIAL. SQ SCH ×3 (12:03→17:18)
[2021-04-27 12:13] VITALS: BP 129/69
--- NOTE | 2021-04-27 14:27 | PDOC ---
[employer] PROGRESS NOTE Date of Service DOS: DATE: 04/27/21 TIME: 14:25 Chief Complaint Chief Complaint acute toxic encephalopathy Cocaine abuse, urine pos 4/5 times he has been in the ER acute renal failure on CKD 3, iv fluid BMI 31 CHF, chronic systolic hx CAD, Stroke, plavix, aspirin, statin History of Present Illness History of Present Illness 04/27 Patient evaluated examined at bedside. Resting in bed. Lethargic. Endorsing some ongoing chest pain but nothing worsening. Need better sugar control insulin added on today. PAT consult. PT OT ordered. Vitals/I&O Vitals/I&O: Vital Signs Date Time Temp Pulse Resp B/P (MAP) Pulse Ox O2 Delivery O2 Flow Rate FiO2 04/27/21 12:13 98.4 64 18 129/69 (89) 98 Room Air 98.4 I & O 04/26/21 04/26/21 04/27/21 15:00 23:00 07:00 Intake Total 2000 ml 240 ml Output Total 350 ml Balance 2000 ml -110 ml Physical Exam General: Cooperative, mild distress, Other (lethargic, falls asleep) Heart: Regular rate Lungs: Clear Abdomen: Normal bowel sounds, Soft Extremities: No edema Skin: No significant lesion Labs Labs: Laboratory Tests Test 04/26/21 17:00 04/26/21 17:47 04/26/21 18:49 04/26/21 19:58 White Blood Count 6.0 x10^3/uL (4.0-11.0) Red Blood Count 4.32 x10^6/uL (4.30-5.70) Hemoglobin 11.3 g/dL (13.0-17.5) Hematocrit 35.1 % (39.0-53.0) Mean Corpuscular Volume 81 fL (79-100) Mean Corpuscular Hemoglobin 26 pg (25-35) Mean Corpuscular Hemoglobin Concent 32 g/dL (31-37) Red Cell Distribution Width 16.8 % (11.5-14.5) Platelet Count 178 x10^3/uL (140-400) Neutrophils (%) (Auto) 57 % (31-73) Lymphocytes (%) (Auto) 33 % (24-48) Monocytes (%) (Auto) 9 % (0-9) Eosinophils (%) (Auto) 1 % (0-3) Basophils (%) (Auto) 1 % (0-3) Neutrophils # (Auto) 3.4 x10^3/uL (1.8-7.7) Lymphocytes # (Auto) 2.0 x10^3/uL (1.0-4.8) Monocytes # (Auto) 0.5 x10^3/uL (0.0-1.1) Eosinophils # (Auto) 0.1 x10^3/uL (0.0-0.7) Basophils # (Auto) 0.0 x10^3/uL (0.0-0.2) Prothrombin Time 13.5 SEC (11.7-14.0) Prothromb Time International Ratio 1.0 (0.8-1.1) Activated Partial Thromboplast Time 22 SEC (24-38) Sodium Level 145 mmol/L (136-145) Potassium Level 4.0 mmol/L (3.5-5.1) Chloride Level 105 mmol/L (98-107) Carbon Dioxide Level 26 mmol/L (21-32) Anion Gap 14 (6-14) Blood Urea Nitrogen 37 mg/dL (8-26) Creatinine 2.8 mg/dL (0.7-1.3) Estimated GFR (Cockcroft-Gault) 27.1 BUN/Creatinine Ratio 13 (6-20) Glucose Level 79 mg/dL (70-99) Lactic Acid Level 1.8 mmol/L (0.4-2.0) Calcium Level 9.1 mg/dL (8.5-10.1) Magnesium Level 1.9 mg/dL (1.8-2.4) Total Bilirubin 0.4 mg/dL (0.2-1.0) Aspartate Amino Transf (AST/SGOT) 13 U/L (15-37) Alanine Aminotransferase (ALT/SGPT) 19 U/L (16-63) Alkaline Phosphatase 94 U/L (46-116) Troponin I High Sensitivity 15 ng/L (4-75) JQ-Ghc-M-Type Natriuretic Peptide 598 pg/mL (0-124) Total Protein 8.1 g/dL (6.4-8.2) Albumin 3.8 g/dL (3.4-5.0) Albumin/Globulin Ratio 0.9 (1.0-1.7) Acetone Level Neg (NEG) Influenza Type A Antigen Negative (NEGATIVE) Influenza Type B Antigen Negative (NEGATIVE) SARS-CoV-2 Antigen (Rapid) Negative (NEGATIVE) Glucose (Fingerstick) 104 mg/dL (70-99) Urine Collection Type U cath Urine Color Yellow Urine Clarity Clear Urine pH 6.0 (<5.0-8.0) Urine Specific [place] 1.020 (1.000-1.030) Urine Protein 100 mg/dL (NEG-TRACE) Urine Glucose (UA) >=1000 mg/dL (NEG) Urine Ketones (Stick) Negative mg/dL (NEG) Urine Blood Trace (NEG) Urine Nitrite Negative (NEG) Urine Bilirubin Negative (NEG) Urine Urobilinogen Dipstick 1.0 mg/dL (0.2 mg/dL) Urine Leukocyte Esterase Negative (NEG) Urine RBC 0 /HPF (0-2) Urine WBC 0 /HPF (0-4) Urine Squamous Epithelial Cells Few /LPF Urine Bacteria 0 /HPF (0-FEW) Urine Hyaline Casts Moderate /HPF Urine Mucus Mod /LPF Urine Opiates Screen Neg (NEG) Urine Methadone Screen Neg (NEG) Urine Barbiturates Neg (NEG) Urine Phencyclidine Screen Neg (NEG) Urine Amphetamine/Methamphetamine Neg (NEG) Urine Benzodiazepines Screen Neg (NEG) Urine Cocaine Screen Pos (NEG) Urine Cannabinoids Screen Neg (NEG) Urine Ethyl Alcohol Neg (NEG) Test 04/27/21 06:45 04/27/21 07:51 04/27/21 11:49 White Blood Count 6.6 x10^3/uL (4.0-11.0) Red Blood Count 4.14 x10^6/uL (4.30-5.70) Hemoglobin 10.7 g/dL (13.0-17.5) Hematocrit 33.4 % (39.0-53.0) Mean Corpuscular Volume 81 fL (79-100) Mean Corpuscular Hemoglobin 26 pg (25-35) Mean Corpuscular Hemoglobin Concent 32 g/dL (31-37) Red Cell Distribution Width 17.2 % (11.5-14.5) Platelet Count 142 x10^3/uL (140-400) Neutrophils (%) (Auto) 56 % (31-73) Lymphocytes (%) (Auto) 34 % (24-48) Monocytes (%) (Auto) 8 % (0-9) Eosinophils (%) (Auto) 2 % (0-3) Basophils (%) (Auto) 0 % (0-3) Neutrophils # (Auto) 3.7 x10^3/uL (1.8-7.7) Lymphocytes # (Auto) 2.3 x10^3/uL (1.0-4.8) Monocytes # (Auto) 0.5 x10^3/uL (0.0-1.1) Eosinophils # (Auto) 0.1 x10^3/uL (0.0-0.7) Basophils # (Auto) 0.0 x10^3/uL (0.0-0.2) Sodium Level 137 mmol/L (136-145) Potassium Level 4.3 mmol/L (3.5-5.1) Chloride Level 101 mmol/L (98-107) Carbon Dioxide Level 21 mmol/L (21-32) Anion Gap 15 (6-14) Blood Urea Nitrogen 29 mg/dL (8-26) Creatinine 2.0 mg/dL (0.7-1.3) Estimated GFR (Cockcroft-Gault) 39.9 BUN/Creatinine Ratio 15 (6-20) Glucose Level 378 mg/dL (70-99) Calcium Level 7.7 mg/dL (8.5-10.1) Total Bilirubin 0.4 mg/dL (0.2-1.0) Aspartate Amino Transf (AST/SGOT) 8 U/L (15-37) Alanine Aminotransferase (ALT/SGPT) 18 U/L (16-63) Alkaline Phosphatase 89 U/L (46-116) Total Protein 7.1 g/dL (6.4-8.2) Albumin 3.0 g/dL (3.4-5.0) Albumin/Globulin Ratio 0.7 (1.0-1.7) Glucose (Fingerstick) 322 mg/dL (70-99) 367 mg/dL (70-99) Assessment and Plan Assessmemt and Plan Problems Medical Problems: (1) AMS (altered mental status) Status: Acute (2) Cocaine abuse Status: Acute Comment Review of Relevant I have reviewed the following items galo (where applicable) has been applied. Medications: Current Medications Medications (Trade) Dose Ordered Sig/Laurie Route PRN Reason Start Time Stop Time Status Last Admin Dose Admin Sodium Chloride 1,000 ml @ 1,000 mls/hr 1X ONCE IV 04/26/21 17:15 04/26/21 18:14 DC 04/26/21 17:30 Allopurinol (Zyloprim) 100 mg DAILY PO 04/27/21 09:00 04/27/21 09:05 Amlodipine Besylate (Norvasc) 10 mg DAILY PO 04/27/21 09:00 04/27/21 09:05 Aspirin (Aspirin Chewable) 81 mg DAILY PO 04/27/21 09:00 04/27/21 09:05 Atorvastatin Calcium (Lipitor) 40 mg QHS PO 04/26/21 22:00 04/26/21 22:42 Vitamin D (Vitamin D3) 1,000 unit DAILY PO 04/27/21 09:00 04/27/21 09:05 Clopidogrel Bisulfate (Plavix) 75 mg DAILY PO 04/27/21 09:00 04/27/21 09:05 Cyclobenzaprine HCl (Flexeril) 10 mg BID PO 04/26/21 22:00 04/27/21 09:05 Furosemide (Lasix) 20 mg DAILY PO 04/27/21 09:00 04/27/21 09:05 Pantoprazole Sodium (Protonix) 40 mg DAILYAC PO 04/27/21 07:30 04/27/21 09:05 Tamsulosin HCl (Flomax) 0.4 mg HS PO 04/26/21 22:00 04/26/21 22:42 Sodium Chloride 1,000 ml @ 75 mls/hr 1X ONCE IV 04/26/21 22:00 04/27/21 11:19 DC 04/26/21 22:42 Insulin Human Lispro (HumaLOG) 0-7 UNITS TIDWMEALS SQ 04/27/21 12:00 04/27/21 12:03 Insulin Human Lispro (HumaLOG) 10 units ONCE ONCE SQ 04/27/21 10:30 04/27/21 10:31 DC 04/27/21 10:32 Justifications for Admission Other Justification AIDA CAIN MD Apr 27, 2021 14:27
[2021-04-27 15:23] VITALS: BP 138/74
[2021-04-27 19:00] VITALS: BP 137/73
[2021-04-27] MEDS: ATORVASTATIN CALCIUM 40 MG TABLET. PO SCH (20:42)
[2021-04-27] MEDS: TAMSULOSIN 0.4 MG CAP.ER.24H. PO SCH (20:42)
[2021-04-27] MEDS ORDERED: INSULIN GLARGINE SYRINGE. SQ SCH ×2 (21:00)
[2021-04-27 23:21] VITALS: BP 164/77
[2021-04-28 02:59] VITALS: BP 160/85
[2021-04-28 07:00] VITALS: BP 184/85
[2021-04-28] MEDS: CYCLOBENZAPRINE 10 MG TABLET. PO SCH (08:30)
[2021-04-28] MEDS: ASPIRIN CHEWABLE 81 MG TABLET. PO SCH (08:30)
[2021-04-28] MEDS: CHOLECALCIFEROL (VITAMIN D3) 1,000 UNIT TABLET PO SCH (08:30)
[2021-04-28] MEDS: CLOPIDOGREL BISULFATE 75 MG TABLET PO SCH (08:30)
[2021-04-28] MEDS: FUROSEMIDE 20 MG TABLET PO SCH (08:31)
[2021-04-28] MEDS: PANTOPRAZOLE 40 MG TABLET.DR. PO SCH (08:31)
[2021-04-28] MEDS: ALLOPURINOL 100 MG TABLET. PO SCH (08:31)
[2021-04-28] MEDS: INSULIN LISPRO 300 UNITS/3 ML VIAL. SQ SCH ×4 (08:37→12:00)
--- NOTE | 2021-04-28 10:27 | PDOC3 ---
[facility]-Discharge Summary Date of Admission: Date of Admission: Apr 26, 2021 Date of Discharge: Date of Discharge: Apr 28, 2021 Admission Diagnosis: Problems: (1) DM2 (diabetes mellitus, type 2) (2) AMS (altered mental status) (3) Cocaine abuse Hospital Course: Hospital Course: Chief Complaint acute toxic encephalopathy Cocaine abuse, urine pos 4/5 times he has been in the ER acute renal failure on CKD 3, iv fluid BMI 31 CHF, chronic systolic hx CAD, Stroke, plavix, aspirin, statin History of Present Illness History of Present Illness 04/27 Patient evaluated examined at bedside. Resting in bed. Lethargic. Endorsing some ongoing chest pain but nothing worsening. Need better sugar control insul in added on today. PAT consult. PT OT ordered. 04/28 Patient evaluated examined at bedside. Resting in bed. Discharge today. Greater than 30 minutes spent on discharge. 19 min advance care planning. Disposition: Disposition/Orders: D/C to Home Activity: Activity: Resume previous activity Diet: Diet: Regular Medications: Home Meds Active Scripts Cyclobenzaprine Hcl (CYCLOBENZAPRINE HCL) 10 Mg Tablet, 1 TAB PO BID for muscle spasm, #14 TAB Prov:VIANEY SILVA DO 02/23/21 Insulin Detemir (LEVEMIR) 100 Unit/1 Ml Vial, 22 UNIT SQ HS for DM for 30 Days, #30 VIAL Prov:AIDA POLANCO MD 09/20/20 Pantoprazole Sodium (PANTOPRAZOLE SODIUM ) 40 Mg Tablet.dr, 40 MG PO DAILYAC for gerd, #30 TAB.SR Prov:MICHAEL QUACH MD 02/09/19 Reported Medications Insulin Aspart (NOVOLOG) 100 Unit/1 Ml Cartridge, 10 UNIT SQ TIDWMEALS for DM, EACH 11/11/18 Ropinirole Hcl (ROPINIROLE HCL) 0.5 Mg Tablet, 0.5 MG PO HS for RLS, TAB 09/21/18 Tamsulosin Hcl (FLOMAX) 0.4 Mg Cap.er.24h, 0.4 MG PO HS for retention, TAB 09/21/18 Metoprolol Tartrate (METOPROLOL TARTRATE) 25 Mg Tablet, 25 MG PO HS for FOR HYPERTENSION, #60 TAB 0 Refills 09/21/18 Loratadine (LORATADINE) 10 Mg Tablet, 1 TAB PO PRN DAILY PRN for gerd, #30 TAB 5 Refills 09/21/18 Hydralazine Hcl (HYDRALAZINE HCL) 50 Mg Tablet, 50 MG PO QID for htn, TAB 09/21/18 Furosemide (FUROSEMIDE) 20 Mg Tablet, 20 MG PO DAILY for diuretic, TAB 09/21/18 Clopidogrel Bisulfate (CLOPIDOGREL) 75 Mg Tablet, 1 TAB PO DAILY for thinner, #90 TAB 1 Refill 09/21/18 Cholecalciferol (Vitamin D3) (VITAMIN D3) 1,000 Unit Tablet, 1 TAB PO DAILY for replacement, #30 TAB 5 Refills 09/21/18 Atorvastatin Calcium (ATORVASTATIN CALCIUM) 40 Mg Tablet, 1 TAB PO QHS for cholesterol, #90 TAB 3 Refills 09/21/18 Aspirin (ASPIRIN) 81 Mg Tab.chew, 1 TAB PO DAILY for thinner, #30 TAB 3 Refills 09/21/18 Allopurinol (ALLOPURINOL) 100 Mg Tablet, 1 TAB PO DAILY for gout, #30 TAB 5 Refills 09/21/18 Amlodipine Besylate (AMLODIPINE BESYLATE) 10 Mg Tablet, 10 MG PO DAILY for htn, TAB 09/21/18 Scheduled Allopurinol (Allopurinol), 1 TAB PO DAILY, (Reported) Amlodipine Besylate (Amlodipine Besylate), 10 MG PO DAILY, (Reported) Aspirin (Aspirin), 1 TAB PO DAILY, (Reported) Atorvastatin Calcium (Atorvastatin Calcium), 1 TAB PO QHS, (Reported) Cholecalciferol (Vitamin D3) (Vitamin D3), 1 TAB PO DAILY, (Reported) Clopidogrel Bisulfate (Clopidogrel), 1 TAB PO DAILY, (Reported) Cyclobenzaprine Hcl (Cyclobenzaprine Hcl), 1 TAB PO BID Furosemide (Furosemide), 20 MG PO DAILY, (Reported) Hydralazine Hcl (Hydralazine Hcl), 50 MG PO QID, (Reported) Insulin Aspart (Novolog), 10 UNIT SQ TIDWMEALS, (Reported) Insulin Detemir (Levemir), 22 UNIT SQ HS Metoprolol Tartrate (Metoprolol Tartrate), 25 MG PO HS, (Reported) Pantoprazole Sodium (Pantoprazole Sodium ), 40 MG PO DAILYAC Ropinirole Hcl (Ropinirole Hcl), 0.5 MG PO HS, (Reported) Tamsulosin Hcl (Flomax), 0.4 MG PO HS, (Reported) Scheduled PRN Loratadine (Loratadine), 1 TAB PO PRN DAILY PRN for gerd, (Reported) Justicifation of Admission Dx: Justifications for Admission: Justification of Admission Dx: Yes AIDA CAIN MD Apr 28, 2021 10:27
[2021-04-28 11:00] VITALS: BP 173/80
--- NOTE | 2021-04-28 11:21 | NUR ---
SW following. Discussed with RN, pt from home, room air, ada diet, COVID-19 negative. Discharge order for home with self care. RN advised no SW needs.
[2021-04-28] MEDS ORDERED: CYCL10TA19 PO (12:36)
--- NOTE | 2021-04-28 13:27 | SNU/HH DC ---
DISCHARGE WITH HOME HEALTH DISCHARGE INFORMATION: Discharge Date: Apr 28, 2021 Final Diagnosis: Problems Medical Problems: (1) AMS (altered mental status) Status: Acute (2) Cocaine abuse Status: Acute Condition on Discharge: Stable CODE STATUS: Code Status: Full HOME HEALTH: Face to Face: I certify this patient is under my care and that I, or a nurse practitioner or physician's physician's assistant working with me, had a face to face encounter that meets the physician face to face encounter requirements with this patient on []. RN For Eval/Treatment: Yes Physical Therapy For: Evalulation/Treatment Occupational Therapy For: Evaluation/Treatment Pt Meets Homebound Status: Poor coordination w/ amb., Unsteady balance w/ amb, POST DISCHARGE ORDERS: Activity Instructions for Disc: Activity as tolerated Weight Bearing Status after Di: As tolerated DIET AFTER DISCHARGE: ADA Wound/Incision Care: No wound care needed CHECKS AFTER DISCHARGE: Checks after discharge: Check blood press - daily, Check blood sugar, ac/hs TREATMENT/EQUIPMENT ORDERS: Adaptive Equipment Issued: None CERTIFICATION STATEMENT: Certification Statement: Certification Statement: Based on the above finding, I certify that this patient is confined to the home and needs intermittent intermediate care, physical therapy and/or speech therapy, or continues to need occupational therapy.~ This patient is under my care, and I have initiated the establishment of the plan of care.~ This patient will be followed by myself or a community physician who will periodically review the plan of care. Home Meds Active Scripts Cyclobenzaprine Hcl (CYCLOBENZAPRINE HCL) 10 Mg Tablet, 1 TAB PO TID PRN for back pain for 30 Days, #60 TAB Prov:AIDA CAIN MD 04/28/21 Cyclobenzaprine Hcl (CYCLOBENZAPRINE HCL) 10 Mg Tablet, 1 TAB PO BID for muscle spasm, #14 TAB Prov:VIANEY SILVA DO 02/23/21 Insulin Detemir (LEVEMIR) 100 Unit/1 Ml Vial, 22 UNIT SQ HS for DM for 30 Days, #30 VIAL Prov:AIDA POLANCO MD 09/20/20 Pantoprazole Sodium (PANTOPRAZOLE SODIUM ) 40 Mg Tablet.dr, 40 MG PO DAILYAC for gerd, #30 TAB.SR Prov:MICHAEL QUACH MD 02/09/19 Reported Medications Insulin Aspart (NOVOLOG) 100 Unit/1 Ml Cartridge, 10 UNIT SQ TIDWMEALS for DM, EACH 11/11/18 Ropinirole Hcl (ROPINIROLE HCL) 0.5 Mg Tablet, 0.5 MG PO HS for RLS, TAB 09/21/18 Tamsulosin Hcl (FLOMAX) 0.4 Mg Cap.er.24h, 0.4 MG PO HS for retention, TAB 09/21/18 Metoprolol Tartrate (METOPROLOL TARTRATE) 25 Mg Tablet, 25 MG PO HS for FOR HYPERTENSION, #60 TAB 0 Refills 09/21/18 Loratadine (LORATADINE) 10 Mg Tablet, 1 TAB PO PRN DAILY PRN for gerd, #30 TAB 5 Refills 09/21/18 Hydralazine Hcl (HYDRALAZINE HCL) 50 Mg Tablet, 50 MG PO QID for htn, TAB 09/21/18 Furosemide (FUROSEMIDE) 20 Mg Tablet, 20 MG PO DAILY for diuretic, TAB 09/21/18 Clopidogrel Bisulfate (CLOPIDOGREL) 75 Mg Tablet, 1 TAB PO DAILY for thinner, #90 TAB 1 Refill 09/21/18 Cholecalciferol (Vitamin D3) (VITAMIN D3) 1,000 Unit Tablet, 1 TAB PO DAILY for replacement, #30 TAB 5 Refills 09/21/18 Atorvastatin Calcium (ATORVASTATIN CALCIUM) 40 Mg Tablet, 1 TAB PO QHS for cholesterol, #90 TAB 3 Refills 09/21/18 Aspirin (ASPIRIN) 81 Mg Tab.chew, 1 TAB PO DAILY for thinner, #30 TAB 3 Refills 09/21/18 Allopurinol (ALLOPURINOL) 100 Mg Tablet, 1 TAB PO DAILY for gout, #30 TAB 5 Refills 09/21/18 Amlodipine Besylate (AMLODIPINE BESYLATE) 10 Mg Tablet, 10 MG PO DAILY for htn, TAB 09/21/18 AIDA CAIN MD Apr 28, 2021 13:27
--- NOTE | 2021-04-28 14:10 | NUR ---
Discharge Note: FALLON MORA [address] Discharge instructions and discharge home medications reviewed with Patient and a copy given. All questions have been answered and understanding verbalized. The following instructions and handouts were given: follow up instructions, medication education Discontinued lines and drains: 20 guage Left AC, tip intact. 20 gauge right hand, tip intact. patient tolerated well. Patient discharged to home with home health via family.
--- NOTE | 2021-05-01 09:58 | EKG ---
[facility] [address] [place] [address] Test Date: 2021-04-26 Test Time: 16:58:46 Pat Name: FALLON MORA Department: Room: 4 Gender: M Manager Resort: : 1950 Requested By: LIZZY BESS Order Number: [id number] Reading MD: Jimbo Ahn MD Measurements Intervals [place] Rate: 65 P: 52 CT: 174 QRS: 142 QRSD: 102 T: 139 QT: 502 QTc: 523 Interpretive Statements SINUS ARRHYTHMIA CONSIDER LIMB LEAD MISPLACEMENT NON-SPECIFIC ST/T CHANGES Electronically Signed On 05-05-2021 11:53:30 CASH APPLICATIONS REPRESENTATIVE by Jimbo Ahn MD
== END 2021-04-28 13:55 | disposition home health service (06) ==
LOC: ER 16:52 → 5 SOUTH 20:49
PROVIDERS: ADMIT Internal Medicine; ATTEND Internal Medicine
DX: R41.82 Altered mental status, unspecified (principal); Z20.822 Contact with and (suspected) exposure to COVID-19; F14.10 Cocaine abuse, uncomplicated; T40.5X1A Poisoning by cocaine, accidental (unintentional), initial encounter; G92.9 Unspecified toxic encephalopathy; I13.0 Hypertensive heart and chronic kidney disease with heart failure and stage 1 through stage 4 chronic kidney disease, or unspecified chronic kidney disease; I50.22 Chronic systolic (congestive) heart failure; N18.30 Chronic kidney disease, stage 3 unspecified; E11.22 Type 2 diabetes mellitus with diabetic chronic kidney disease; E78.00 Pure hypercholesterolemia, unspecified; E78.5 Hyperlipidemia, unspecified; M54.50 Low back pain, unspecified; I25.10 Atherosclerotic heart disease of native coronary artery without angina pectoris; N17.9 Acute kidney failure, unspecified; Z68.31 Body mass index [BMI] 31.0-31.9, adult; Z85.46 Personal history of malignant neoplasm of prostate; Z86.73 Personal history of transient ischemic attack (TIA), and cerebral infarction without residual deficits; Z87.891 Personal history of nicotine dependence; Z90.49 Acquired absence of other specified parts of digestive tract; Z79.899 Other long term (current) drug therapy; Z98.890 Other specified postprocedural states
CPT/HCPCS: 36415; 70450; 71250; 72125; 74176; 80053; 80307; 81001; 82010; 82962; 83605; 83735; 83880; 84484; 85025; 85610; 85730; 87040; 87428; 93005; 96360; 96361; 97110; 97116; 97162; 97165; 99285; G0378; J1815; J7030; U0003; G0379